=== PATIENT | male | born 1970 | race Caucasian/White ===

== ENCOUNTER 2016-09-16 00:52 | Emergency (ER) | payer MEDICARE, OTHER ==
[2016-09-16] MEDS ORDERED: LORazepam 2 MG/ML SYRINGE IV STA (00:58)
[2016-09-16] MEDS ORDERED: LORazepam 2 MG/ML SYRINGE IM STA (01:02)
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
[2016-09-16] MEDS ORDERED: NITROPRUSSIDE 100 MG in DEXTROSE 5% IN WATER 250 ML IV ONE ×2 (01:38)
[2016-09-16 01:42] LABS: Anisocytosis Slight; Basophils % (A) 0 %; CH 28.8; CHCM 31.1; Eosinophils # (A) 0.2 k/uL (0-0.7); Eosinophils % (A) 2 %; HCT 35.5 % (39.0-53.0); HDW 2.96; Hypochromasia Slight; Luc # (Auto) 0.09; Luc % (Auto) 1; Lymphocytes % (A) 21 %; MCH 28.2 pg (25.0-35.0); MCHC 30.3 g/dL (31.0-37.0); MCV 93.1 fL (80.0-100.0); Mean Platelet Volume 7.8; Monocytes # (A) 0.3 k/uL (0-1.0); Monocytes % (A) 3 %; Neutrophils # (A) 6.9 k/uL (1.3-7.7); Neutrophils % (A) 73 %; RBC 3.82 m/uL (4.30-5.90); RDW 16.3 % (11.5-15.5); WBC 9.4 k/uL (3.8-10.6); WBC (Perox) 9.48
[2016-09-16 01:54] LABS: ALT 41 U/L (21-72); AST 26 U/L (17-59); Acetaminophen <10.0 ug/mL; Alkaline Phosphatase 81 U/L (38-126); Anion Gap 15 mmol/L; Blood Urea Nitrogen 63 mg/dL (9-20); Calcium 7.5 mg/dL (8.4-10.2); Carbon Dioxide 13 mmol/L (22-30); Chloride 113 mmol/L (98-107); Glucose 114 mg/dL (74-99); Salicylate <1.0 mg/dL; Sodium 141 mmol/L (137-145); Total Bilirubin 0.3 mg/dL (0.2-1.3); Total Protein 5.9 g/dL (6.3-8.2)
[2016-09-16 01:58] LABS: Non-African American GFR(MDRD) 10 (>60 ml/min/1.73 sqM)
[2016-09-16 02:00] LABS: Potassium 6.5 mmol/L (3.5-5.1)
[2016-09-16 02:06] VITALS: RESP 16
[2016-09-16 02:08] LABS: HGB 10.8 gm/dL (13.0-17.5)
[2016-09-16] MEDS ORDERED: CALCIUM GLUCONATE 1,000 MG in SODIUM CHLORIDE 0.9% 100 ML IVPB ONE (02:09)
[2016-09-16] MEDS ORDERED: IPRATROPIUM-ALBUTEROL 3 ML NEB INHALATION STA (02:09)
[2016-09-16] MEDS ORDERED: SODIUM POLYSTYRENE SULFONATE 15 GM/60 ML BOTTLE PO STA (02:10)
[2016-09-16] MEDS ORDERED: SODIUM CHLORIDE 0.9% 1,000 ML IV SCH (02:15)
--- NOTE | 2016-09-16 02:31 | XR ---
EXAMINATION TYPE: XR chest 1V DATE OF EXAM: 09/16/2016 2:19 AM COMPARISON: 08/01/2016 HISTORY: Chest pain seizures TECHNIQUE: Single frontal view of the chest is obtained. FINDINGS: There is mild pulmonary congestion. There is blunting of costophrenic angles. There are ch est leads. There is a left central venous catheter with tip in the right atrium. There is a right-dario ed central venous catheter with tip in the superior vena cava. IMPRESSION: Bilateral pleural effusions and probable mild heart failure. There is significant decrea se in congestion and pleural fluid compared to old exam.
--- NOTE | 2016-09-16 02:32 | CT ---
EXAMINATION TYPE: CT brain wo con DATE OF EXAM: 09/16/2016 2:27 AM COMPARISON: 04/11/2016 HISTORY: seizure CT DLP: 1064.30 mGycm Automated exposure control for dose reduction was used. FINDINGS: There is hypodensity in the periventricular white matter. There is no mass effect nor midline shift. There is no sign of intracranial hemorrhage. The calvarium is intact. IMPRESSION: There is diffuse white matter hypodensity similar to old exam. No acute intracranial abnormality. No hemorrhage.
[2016-09-16 03:11] LABS: ABG HCO3 16 mmol/L (21-25); ABG PCO2 40 mmHg (35-45); ABG PH 7.24 (7.35-7.45); ABG PO2 116 mmHg (83-108); ABG TCO2 18 mmol/L (19-24)
[2016-09-16 03:12] LABS: ABG Base Excess -9.8 mmol/L
[2016-09-16 03:35] LABS: Amorphous Sediment,Urine Occasional /hpf; Appearance,Urine Clear (Clear); Bilirubin,Urine Negative (Negative); Glucose,Urine (UA) 2+ (Negative); Ketones,Urine Trace (Negative); Leukocyte Esterase,Urine Negative (Negative); Mucus,Urine Rare /hpf; Nitrite,Urine Negative (Negative); PH, Urine 6.5 (5.0-8.0); Particle Count 7057; Protein,Urine 3+ (Negative); RBC,Urine 10 /hpf (0-5); Specific Gravity,Urine 1.009 (1.001-1.035); Squamous Epithelial Cell,Urine <1 /hpf (0-4); UA Billing (MACRO vs. MICRO) MICRO; Urobilinogen,Urine <2.0 mg/dL (<2.0); WBC,Urine 1 /hpf (0-5)
[2016-09-16 04:30] VITALS: BP 170/101; PULSE 96; TEMP 97.1
== END 2016-09-16 05:00 | disposition other institution (70) ==
LOC: EC 00:52 → SUPCPDRO 00:52 → EC 05:00
DX: G40.909 Epilepsy, unspecified, not intractable, without status epilepticus (principal); S09.90XA Unspecified injury of head, initial encounter; E87.2 Acidosis; E87.5 Hyperkalemia; I50.9 Heart failure, unspecified; E11.9 Type 2 diabetes mellitus without complications; I16.9 Hypertensive crisis, unspecified; I12.0 Hypertensive chronic kidney disease with stage 5 chronic kidney disease or end stage renal disease; N18.6 End stage renal disease; W06.XXXA Fall from bed, initial encounter; Y92.003 Bedroom of unspecified non-institutional (private) residence as the place of occurrence of the external cause; G47.30 Sleep apnea, unspecified; Z99.2 Dependence on renal dialysis; M19.90 Unspecified osteoarthritis, unspecified site; Z86.14 Personal history of Methicillin resistant Staphylococcus aureus infection; K21.9 Gastro-esophageal reflux disease without esophagitis; Z79.4 Long term (current) use of insulin; Z79.899 Other long term (current) drug therapy; Z88.5 Allergy status to narcotic agent
CPT/HCPCS: 96372; 96365; 96366; 96368; 99291; 36415; 94640; 36600; 93005; 80053; 82805; 85025; 81001; 87040; 80306; 83520 ×2; 87086; 71010; 70450; J2060; J0610

== ENCOUNTER 2016-10-14 05:11 | Inpatient (IN) | payer MEDICARE, OTHER ==
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
[2016-10-14 06:13] LABS: Anisocytosis Slight; Basophils % (A) 0 %; CH 29.2; CHCM 28.2; Eosinophils # (A) 0.1 k/uL (0-0.7); Eosinophils % (A) 2 %; HCT 29.1 % (39.0-53.0); HDW 3.37; Hypochromasia Marked; Luc # (Auto) 0.09; Luc % (Auto) 2; Lymphocytes # (A) 0.8 k/uL (1.0-4.8); Lymphocytes % (A) 13 %; MCH 30.3 pg (25.0-35.0); Macrocytosis Marked; Mean Platelet Volume 8.3; Monocytes # (A) 0.3 k/uL (0-1.0); Monocytes % (A) 5 %; Neutrophils # (A) 5.1 k/uL (1.3-7.7); Neutrophils % (A) 80 %; RBC 2.78 m/uL (4.30-5.90); RDW 18.8 % (11.5-15.5); WBC 6.4 k/uL (3.8-10.6); WBC (Perox) 6.86
[2016-10-14 06:22] LABS: Calcium 6.8 mg/dL (8.4-10.2); Total Bilirubin 0.5 mg/dL (0.2-1.3)
[2016-10-14 06:23] LABS: HGB 8.4 gm/dL (13.0-17.5); MCV 104.5 fL (80.0-100.0)
[2016-10-14 06:31] LABS: Potassium 9.4 mmol/L (3.5-5.1)
[2016-10-14] MEDS ORDERED: INSULIN REGULAR 100 UNIT/ML VIAL IV STA (06:32)
[2016-10-14] MEDS ORDERED: ALBUTEROL NEBULIZED 2.5 MG/3 ML INHALATION STA (06:32)
[2016-10-14] MEDS ORDERED: SODIUM BICARB 8.4% 50 ML SYR (1 MEQ/ML) IV STA ×3 (06:32→14:06)
[2016-10-14] MEDS ORDERED: CALCIUM GLUCONATE 1,000 MG in SODIUM CHLORIDE 0.9% 100 ML IVPB ONE (06:32)
--- NOTE | 2016-10-14 06:40 | XR ---
EXAMINATION TYPE: XR KUB DATE OF EXAM: 10/14/2016 6:21 AM COMPARISON: 03/05/2016 HISTORY: Abdominal pain TECHNIQUE: 3 views FINDINGS: There is increased density over the abdomen suggestive of ascites. There is no evidence of pneumoperitoneum. I see no sign of a bowel obstruction. There is blunting of right costophrenic angle . IMPRESSION: There is evidence of new right pleural effusion compared to old exam. There is probably a scites. No free air.
[2016-10-14] MEDS ORDERED: NALOXONE 0.4 MG/ML 1 ML VIAL IV PRN (06:41)
--- NOTE | 2016-10-14 06:42 | XR ---
EXAMINATION TYPE: XR chest 1V portable DATE OF EXAM: 10/14/2016 6:21 AM COMPARISON: 09/16/2016 HISTORY: Short of breath TECHNIQUE: Single frontal view of the chest is obtained. FINDINGS: There is probably pulmonary vascular congestion. There is blunting of costophrenic angles and more on the right side. There is left side central venous catheter with the tip in the right atri um. There are chest leads. IMPRESSION: There is increasing bilateral pleural effusions and mild pulmonary vascular congestion c ompared to last exam. Heart failure cannot be excluded. Bilateral lower lobe pneumonia cannot be exc luded.
[2016-10-14] MEDS: DEXTROSE 50%-WATER 50 ML SYRINGE IVP STA ×2 (06:44→16:38)
[2016-10-14 06:47] LABS: Manual Review Performed; Toxic Granulation Present
[2016-10-14 10:17] LABS: Glucose,Whole Blood 122 mg/dL (75-99)
[2016-10-14] MEDS ORDERED: HYDROmorphone 1 MG/ML 1 ML SYRINGE IVP STA (11:03)
--- NOTE | 2016-10-14 11:34 | XR ---
EXAMINATION TYPE: XR chest 1V portable DATE OF EXAM: 10/14/2016 11:25 AM COMPARISON: 10/14/2016 HISTORY: Shortness of breath TECHNIQUE: Single frontal view of the chest is obtained. FINDINGS: Bilateral pleural effusions and consolidation with cardiomegaly appearing stable. Dialysis catheter seen with the tip overlying the right atrium. Mediport PICC line noted. No pneumothorax. IMPRESSION: 1. Bilateral consolidation and pleural effusion, correlate for CHF.
[2016-10-14] MEDS ORDERED: ETOMIDATE 2 MG/ML 10 ML VIAL IVP STA (11:37)
[2016-10-14] MEDS ORDERED: MIDAZOLAM (PF) 1 MG/ML 5 ML VIAL IV STA (11:39)
[2016-10-14 11:50] LABS: ABG HCO3 19 mmol/L (21-25); ABG PCO2 43 mmHg (35-45); ABG PH 7.26 (7.35-7.45); ABG PO2 32 mmHg (83-108); ABG TCO2 20 mmol/L (19-24)
[2016-10-14] MEDS: EMPTY BAG 1 BAG with PROPOFOL 500 MG IV SCH ×4 (11:56→22:16)
--- NOTE | 2016-10-14 12:05 | XR ---
EXAMINATION TYPE: XR chest 1V portable DATE OF EXAM: 10/14/2016 11:54 AM Comparison: Earlier today Clinical History: 46-year-old male Tube placement Findings: Left-sided double lumen hemodialysis catheter is present with tips probably in the upper right atrium . There is marked leftward patient rotation altering the normal cardiac mediastinal contours. Right h eart margin obscured by increasing opacity throughout the right lung. Right anterior chest wall subcl marlena injection port with catheter tip near the upper to mid SVC level. Continued hazy density at the left base with a interstitial densities throughout the left lung. ET tube is in place, satisfactory. Impression: 1. Satisfactory positioning of ET tube. 2. Rotated exam. Findings suggest worsening of right greater and left pleural effusions and possible underlying interstitial edema.
[2016-10-14] MEDS ORDERED: HEPARIN SODIUM,PORCINE 5,000 UNIT/ML 1 ML VIAL ONE (12:15)
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
[2016-10-14 14:08] LABS: ABG Base Excess -8.4 mmol/L; ABG HCO3 18 mmol/L (21-25); ABG PCO2 49 mmHg (35-45); ABG PO2 77 mmHg (83-108); ABG TCO2 20 mmol/L (19-24)
[2016-10-14 14:09] LABS: ABG Oxygen Saturation 91.6 % (94-97)
[2016-10-14 15:36] LABS: Glucose,Whole Blood 60 mg/dL (75-99)
[2016-10-14 16:09] LABS: Glucose,Whole Blood 147 mg/dL (75-99)
[2016-10-14 16:28] LABS: Calcium 6.9 mg/dL (8.4-10.2); Potassium 5.6 mmol/L (3.5-5.1); Total Bilirubin 0.5 mg/dL (0.2-1.3); Total Protein 5.5 g/dL (6.3-8.2)
[2016-10-14] MEDS: HEPARIN SODIUM,PORCINE 5,000 UNIT/ML 1 ML VIAL SQ SCH (16:39)
[2016-10-14 16:43] LABS: Glucose,Whole Blood 87 mg/dL (75-99)
[2016-10-14 17:27] LABS: Glucose,Whole Blood 98 mg/dL (75-99)
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
[2016-10-14 18:59] LABS: Amorphous Sediment,Urine Few /hpf; Appearance,Urine Cloudy (Clear); Bilirubin,Urine Negative (Negative); Glucose,Urine (UA) Negative (Negative); Ketones,Urine Negative (Negative); Leukocyte Esterase,Urine Moderate (Negative); Mucus,Urine Rare /hpf; Nitrite,Urine Negative (Negative); PH, Urine 5.5 (5.0-8.0); Particle Count 34659; Protein,Urine 3+ (Negative); RBC,Urine 5 /hpf (0-5); Specific Gravity,Urine 1.013 (1.001-1.035); UA Billing (MACRO vs. MICRO) MICRO; Urobilinogen,Urine <2.0 mg/dL (<2.0); WBC,Urine 29 /hpf (0-5)
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
[2016-10-14] MEDS ORDERED: DARBEPOETIN ALFA 40 MCG/0.4 ML SYRINGE SQ SCH (21:00)
[2016-10-14 22:11] LABS: Glucose,Whole Blood 56 mg/dL (75-99)
[2016-10-14 22:13] LABS: Glucose,Whole Blood 95 mg/dL (75-99)
[2016-10-14] MEDS: PANTOPRAZOLE 40 MG/10 ML VIAL IVP SCH (22:15)
[2016-10-14 23:28] LABS: Glucose,Whole Blood 76 mg/dL (75-99)
[2016-10-15 02:43] LABS: Glucose,Whole Blood 66 mg/dL (75-99)
[2016-10-15] MEDS: EMPTY BAG 1 BAG with PROPOFOL 500 MG IV SCH ×3 (02:52→08:02)
[2016-10-15 03:08] LABS: Glucose,Whole Blood 106 mg/dL (75-99)
[2016-10-15 04:45] LABS: Anisocytosis Slight; CHCM 30.7; HDW 3.33; Hypochromasia Marked; MCH 30.3 pg (25.0-35.0); MCHC 30.8 g/dL (31.0-37.0); Macrocytosis Slight; Mean Platelet Volume 9.9; RBC 2.03 m/uL (4.30-5.90); RDW 18.4 % (11.5-15.5); WBC 3.5 k/uL (3.8-10.6)
[2016-10-15 04:50] LABS: HGB 6.2 gm/dL (13.0-17.5)
[2016-10-15 04:51] LABS: MCV 98.4 fL (80.0-100.0)
[2016-10-15 05:00] LABS: Calcium 6.6 mg/dL (8.4-10.2); Magnesium 2.2 mg/dL (1.6-2.3); Phosphorous 7.5 mg/dL (2.5-4.5); Potassium 5.8 mmol/L (3.5-5.1)
[2016-10-15 05:29] LABS: Glucose,Whole Blood 79 mg/dL (75-99)
--- NOTE | 2016-10-15 07:08 | XR ---
EXAMINATION TYPE: XR chest 1V portable DATE OF EXAM: 10/15/2016 6:42 AM CLINICAL HISTORY: Difficulty breathing progress study. Orogastric tube placement. TECHNIQUE: Single AP portable upright view of the chest is obtained. COMPARISON: Chest x-ray from one day earlier FINDINGS: There is new orogastric tube projecting below diaphragm. An endotracheal tube, right subcl marlena Mediport catheter, and large bore left internal jugular central venous catheter are all stable in appearance. There are small bilateral pleural effusions with central vascular congestion and patchy bibasilar ate lectasis and/or infiltrate all redemonstrated, findings are improved from prior. Cardiac silhouette s ize is within normal limits. Osseous structures are intact. IMPRESSION: 1. New orogastric tube is satisfactory in position. 2. There is interval improvement in bilateral pleural effusions, central vascular congestion, and dif fuse bilateral edema and/or infiltrates. There is persistent small bilateral pleural effusions with m ild central vascular congestion and bilateral lower lung edema and/or infiltrates all still present b ut improved.
[2016-10-15] MEDS: DEXTROSE 5% IN WATER 1,000 ML IV SCH (08:03)
[2016-10-15] MEDS: HEPARIN SODIUM,PORCINE 5,000 UNIT/ML 1 ML VIAL SQ SCH ×4 (08:04→16:23)
[2016-10-15] MEDS: PANTOPRAZOLE 40 MG/10 ML VIAL IVP SCH ×2 (08:04→20:31)
[2016-10-15] MEDS ORDERED: SODIUM POLYSTYRENE SULFONATE 15 GM/60 ML BOTTLE PO STA (08:55)
[2016-10-15 09:04] LABS: ABG Base Excess -7.4 mmol/L; ABG HCO3 18 mmol/L (21-25); ABG Oxygen Saturation 99.5 % (94-97); ABG PCO2 40 mmHg (35-45); ABG PH 7.28 (7.35-7.45); ABG PO2 181 mmHg (83-108); ABG TCO2 19 mmol/L (19-24)
[2016-10-15] MEDS ORDERED: HEPARIN SODIUM,PORCINE 5,000 UNIT/ML 1 ML VIAL ONE (10:20)
[2016-10-15] MEDS: HYDROmorphone 1 MG/ML 1 ML SYRINGE IVP PRN ×6 (11:42→22:46)
[2016-10-15 11:44] LABS: Glucose,Whole Blood 75 mg/dL (75-99)
--- NOTE | 2016-10-15 12:17 | P.PN ---
Subjective Patient is seen in follow-up for end-stage renal disease. He is maintained on hemodialysis on a Wednesday schedule via a permacath. However the patient has been extremely noncompliant and missed over a month of dialysis as an outpatient. He presented with hyperkalemia and a cardiac arrest. He underwent urgent hemodialysis yesterday morning. Potassium this morning is 5.8. He was extubated this morning. Currently awake and alert. Denies chest pain or shortness of breath. Vital signs are stable. General: The patient appeared well nourished and normally developed. HEENT: Head exam is unremarkable. Neck is without jugular venous distension. LUNGS: Lungs are clear to auscultation and percussion. Breath sounds decreased. HEART: Rate and Rhythm are regular. First and second heart sounds normal. No murmurs, rubs or gallops. ABDOMEN: Abdominal exam reveals normal bowel sounds. Non-tender and non- distended. No evidence of peritonitis. EXTREMITITES: 1+ edema. Objective - Vital Signs Vital signs: Vital Signs Temp 97.6 F 10/15/16 11:31 Pulse 80 10/15/16 11:31 Resp 10 L 10/15/16 11:31 BP 187/74 10/15/16 11:31 Pulse Ox 96 10/15/16 11:31 Intake & Output 10/14/16 10/15/16 10/15/16 18:59 06:59 18:59 Intake Total 80.038 403.956 120.57 Output Total 20 281 185 Balance 60.038 122.956 -64.43 Weight 72.575 kg 76.3 kg Intake: IV 220 100 0.9 100 D5W 120 100 Intake, IV Titration 80.038 183.956 20.57 Amount Empty Bag 1 bag @ 10 MCG/ 80.038 183.956 20.57 KG/MIN 4.35 mls/hr IV . [id number] THOM with Propofol 500 mg Rx#:[id number] Blood Product 0 Rc Pheresis 2 As3 Unit 0 [id number] Output: Urine 20 281 185 Other: Voiding Method Indwelling Catheter Indwelling Catheter ABP, PAP, CO, CI - Last Documented Arterial Blood Pressure 123/55 - Labs CBC & Chem 7: 10/15/16 04:15 10/15/16 04:15 Labs: Abnormal Lab Results - Last 24 Hours (Table) 10/14/16 10/14/16 10/14/16 Range/Units 13:35 15:34 16:00 WBC (3.8-10.6) k/uL RBC (4.30-5.90) m/uL Hgb (13.0-17.5) gm/dL Hct (39.0-53.0) % MCHC (31.0-37.0) g/dL RDW (11.5-15.5) % Plt Count (150-450) k/uL ABG pH 7.20 L* (7.35-7.45) ABG pCO2 49 H (35-45) mmHg ABG pO2 77 L (83-108) mmHg ABG HCO3 18 L (21-25) mmol/L ABG O2 Saturation 91.6 L (94-97) % Potassium 5.6 H (3.5-5.1) mmol/L Chloride (98-107) mmol/L Carbon Dioxide 19 L (22-30) mmol/L BUN 65 H (9-20) mg/dL Creatinine 6.72 H* (0.66-1.25) mg/dL Glucose 107 H (74-99) mg/dL POC Glucose (mg/dL) 60 L (75-99) mg/dL Calcium 6.9 L (8.4-10.2) mg/dL Phosphorus (2.5-4.5) mg/dL Alkaline Phosphatase 153 H (38-126) U/L Total Protein 5.5 L (6.3-8.2) g/dL Albumin 2.7 L (3.5-5.0) g/dL Urine Protein (Negative) Urine Blood (Negative) Ur Leukocyte Esterase (Negative) Urine WBC (0-5) /hpf Urine WBC Clumps (None) /hpf Amorphous Sediment (None) /hpf Hyaline Casts (0-2) /lpf Urine Mucus (None) /hpf Crossmatch 10/14/16 10/14/16 10/14/16 Range/Units 16:07 18:35 21:52 WBC (3.8-10.6) k/uL RBC (4.30-5.90) m/uL Hgb (13.0-17.5) gm/dL Hct (39.0-53.0) % MCHC (31.0-37.0) g/dL RDW (11.5-15.5) % Plt Count (150-450) k/uL ABG pH (7.35-7.45) ABG pCO2 (35-45) mmHg ABG pO2 (83-108) mmHg ABG HCO3 (21-25) mmol/L ABG O2 Saturation (94-97) % Potassium (3.5-5.1) mmol/L Chloride (98-107) mmol/L Carbon Dioxide (22-30) mmol/L BUN (9-20) mg/dL Creatinine (0.66-1.25) mg/dL Glucose (74-99) mg/dL POC Glucose (mg/dL) 147 H 56 L (75-99) mg/dL Calcium (8.4-10.2) mg/dL Phosphorus (2.5-4.5) mg/dL Alkaline Phosphatase (38-126) U/L Total Protein (6.3-8.2) g/dL Albumin (3.5-5.0) g/dL Urine Protein 3+ H (Negative) Urine Blood Small H (Negative) Ur Leukocyte Esterase Moderate H (Negative) Urine WBC 29 H (0-5) /hpf Urine WBC Clumps Few H (None) /hpf Amorphous Sediment Few H (None) /hpf Hyaline Casts 43 H (0-2) /lpf Urine Mucus Rare H (None) /hpf Crossmatch 10/15/16 10/15/16 10/15/16 Range/Units 02:41 03:06 04:15 WBC 3.5 L (3.8-10.6) k/uL RBC 2.03 L (4.30-5.90) m/uL Hgb 6.2 L* D (13.0-17.5) gm/dL Hct 20.0 L* (39.0-53.0) % MCHC 30.8 L (31.0-37.0) g/dL RDW 18.4 H (11.5-15.5) % Plt Count 93 L (150-450) k/uL ABG pH (7.35-7.45) ABG pCO2 (35-45) mmHg ABG pO2 (83-108) mmHg ABG HCO3 (21-25) mmol/L ABG O2 Saturation (94-97) % Potassium (3.5-5.1) mmol/L Chloride (98-107) mmol/L Carbon Dioxide (22-30) mmol/L BUN (9-20) mg/dL Creatinine (0.66-1.25) mg/dL Glucose (74-99) mg/dL POC Glucose (mg/dL) 66 L 106 H (75-99) mg/dL Calcium (8.4-10.2) mg/dL Phosphorus (2.5-4.5) mg/dL Alkaline Phosphatase (38-126) U/L Total Protein (6.3-8.2) g/dL Albumin (3.5-5.0) g/dL Urine Protein (Negative) Urine Blood (Negative) Ur Leukocyte Esterase (Negative) Urine WBC (0-5) /hpf Urine WBC Clumps (None) /hpf Amorphous Sediment (None) /hpf Hyaline Casts (0-2) /lpf Urine Mucus (None) /hpf Crossmatch 10/15/16 10/15/16 10/15/16 Range/Units 04:15 06:45 07:58 WBC (3.8-10.6) k/uL RBC (4.30-5.90) m/uL Hgb (13.0-17.5) gm/dL Hct (39.0-53.0) % MCHC (31.0-37.0) g/dL RDW (11.5-15.5) % Plt Count (150-450) k/uL ABG pH 7.28 L (7.35-7.45) ABG pCO2 (35-45) mmHg ABG pO2 181 H (83-108) mmHg ABG HCO3 18 L (21-25) mmol/L ABG O2 Saturation 99.5 H (94-97) % Potassium 5.8 H (3.5-5.1) mmol/L Chloride 108 H (98-107) mmol/L Carbon Dioxide 19 L (22-30) mmol/L BUN 66 H (9-20) mg/dL Creatinine 7.20 H* (0.66-1.25) mg/dL Glucose (74-99) mg/dL POC Glucose (mg/dL) (75-99) mg/dL Calcium 6.6 L (8.4-10.2) mg/dL Phosphorus 7.5 H (2.5-4.5) mg/dL Alkaline Phosphatase (38-126) U/L Total Protein (6.3-8.2) g/dL Albumin (3.5-5.0) g/dL Urine Protein (Negative) Urine Blood (Negative) Ur Leukocyte Esterase (Negative) Urine WBC (0-5) /hpf Urine WBC Clumps (None) /hpf Amorphous Sediment (None) /hpf Hyaline Casts (0-2) /lpf Urine Mucus (None) /hpf Crossmatch See Detail Microbiology - Last 24 Hours (Table) 10/14/16 12:18 Gram Stain - Preliminary Sputum Sputum Culture - Preliminary 10/14/16 18:35 Urine Culture - Preliminary Urine,Catheterized Assessment and Plan Plan: Assessment: #1. End-stage renal disease maintained on hemodialysis on a Wednesday schedule via a permacath. Patient has been extremely noncompliant with hemodialysis as an outpatient and has missed over a month of treatment. #2. Hyperkalemia secondary to noncompliance with hemodialysis. #3. Acute anemia. Hemoglobin 6.2 this morning. #4. Metabolic acidosis secondary to chronic kidney disease. #5. Insulin-dependent diabetes mellitus. #6. Chronic kidney disease mineral bone disease. Plan: Hemodialysis today with goal 3 L ultrafiltration. Will repeat another treatment tomorrow per his outpatient schedule. Patient currently receiving 2 units of packed red blood cell transfusion. Maintain Aranesp. I had a detailed discussion with the patient and his mother was present at bedside regarding the importance of being compliant with hemodialysis.
--- NOTE | 2016-10-15 13:31 | P.PN ---
Subjective Principal diagnosis: Acute hypoxic respiratory failure secondary to pulmonary edema to chronic renal failure. This is a 46-year-old white male with history of multiple medical problems including chronic renal failure, patient is on hemodialysis. Patient presented to the ER with multiple complaints including shortness of breath, intractable nausea and vomiting, and according to the ER physician the patient was unable to keep down his pain medication. Patient has chronic abdominal pain, and takes significant amount of narcotics to control the pain. Is also known to have history of severe gastroparesis. His last dialysis was last Wednesday done at [facility], but shortly after he arrived to the ER, patient apparently deteriorated, and his pulmonary status became much worse. Patient was intubated, and he was also dialyzed in the ER. His dialysis was done on emergency basis, his potassium upon presentation was 9.4. His BUN was 120 and his creatinine was 11.47. At any rate patient was placed on mechanical ventilation, he was intubated by the ER physician, shortly after, I saw the patient in the ER, I adjusted his ventilator settings, and he is now on 100% FiO2, tidal volume of 550, PEEP of 8, and the rate of 14. He is on assist control mode of mechanical ventilation. Chest x-ray was reviewed and clearly shows evidence of pulmonary edema. This is in spite of dialysis and ultrafiltration. ABG prior to intubation showed a pO2 of 32, pCO2 of 43 and pH of 7.26. Liver enzymes were also slightly elevated, and ammonia level was 36. Blood sugar was 173. Upon my evaluation, the patient was actually sedated, and propofol drip. Not much history could be obtained from the patient himself. Patient was reevaluated today on 10/15/2016, he remains on mechanical ventilation , continues to have slight hyperkalemia which will be addressed by giving him Kayexalate, I'm not certain whether the patient is going to be dialyzed today, chest x-ray today showed significant improvement. Patient is anemic and he will likely require at least a unit of packed RBCs possibly 2 units. Discussed his condition with the family at bedside, and the is inclined to consider comfort care measures, however she is not his legal guardian. Apparently he has a guardian appointed by Court. And he would be approached eventually regarding the CODE STATUS. In the meantime the patient seems to be doing well since he had his dialysis yesterday, and based on his labs and his overall critical status, I would likely wean and extubate the patient today. Indeed the patient was given a short the pressure support and CPAP trial, and he did quite well. Hence I decided to extubate the patient. And the CODE STATUS would have to be discussed later with the patient and possibly with his legal guardian. ABG today showed a pO2 of 181 pCO2 of 40 pH of 7.28 potassium was 5.8 today hemoglobin 6.2 and he is yet to receive at least a unit of packed RBCs. However the need a consent by the legal guardian. Objective - Vital Signs Vital signs: Vital Signs Temp 97.7 F 10/15/16 13:17 Pulse 80 10/15/16 13:17 Resp 13 10/15/16 13:17 BP 178/94 10/15/16 13:17 Pulse Ox 94 L 10/15/16 13:17 Intake & Output 10/14/16 10/15/16 10/15/16 18:59 06:59 18:59 Intake Total 80.038 403.956 780.57 Output Total 20 281 385 Balance 60.038 122.956 395.57 Weight 72.575 kg 76.3 kg Intake: IV 220 140 0.9 100 D5W 120 140 Intake, IV Titration 80.038 183.956 20.57 Amount Empty Bag 1 bag @ 10 MCG/ 80.038 183.956 20.57 KG/MIN 4.35 mls/hr IV . [id number] THOM with Propofol 500 mg Rx#:[id number] Blood Product 620 Rc As-1 Unit 0 [id number] Rc Pheresis 2 As3 Unit 310 [id number] Output: Urine 20 281 385 Other: Voiding Method Indwelling Catheter Indwelling Catheter ABP, PAP, CO, CI - Last Documented Arterial Blood Pressure 123/55 - Exam Physical Exam: Revealed a 46-year-old white male on mechanical ventilation, endotracheal tube seems to be intact. HEENT:[Neck is supple.] [No neck masses.] [No thyromegaly.] [No JVD.] Endotracheal tube is intact. Chest: Crackles and rhonchi noted bilaterally] Cardiac Exam: [Normal S1 and S2, no S3 gallop, 2/6 systolic murmur. Throughout the precordium] Abdomen: [Edematous abdominal wall was noted, nontender, no megaly, no rebound , no guarding, normal bowel sounds.] Extremities: [No clubbing, 3+ bipedal edema, no cyanosis.] Neurological Exam: No focal deficit was noted when the patient was off sedation. - Labs CBC & Chem 7: 10/15/16 04:15 10/15/16 04:15 Labs: Abnormal Lab Results - Last 24 Hours (Table) 10/14/16 10/14/16 10/14/16 Range/Units 13:35 15:34 16:00 WBC (3.8-10.6) k/uL RBC (4.30-5.90) m/uL Hgb (13.0-17.5) gm/dL Hct (39.0-53.0) % MCHC (31.0-37.0) g/dL RDW (11.5-15.5) % Plt Count (150-450) k/uL ABG pH 7.20 L* (7.35-7.45) ABG pCO2 49 H (35-45) mmHg ABG pO2 77 L (83-108) mmHg ABG HCO3 18 L (21-25) mmol/L ABG O2 Saturation 91.6 L (94-97) % Potassium 5.6 H (3.5-5.1) mmol/L Chloride (98-107) mmol/L Carbon Dioxide 19 L (22-30) mmol/L BUN 65 H (9-20) mg/dL Creatinine 6.72 H* (0.66-1.25) mg/dL Glucose 107 H (74-99) mg/dL POC Glucose (mg/dL) 60 L (75-99) mg/dL Calcium 6.9 L (8.4-10.2) mg/dL Phosphorus (2.5-4.5) mg/dL Alkaline Phosphatase 153 H (38-126) U/L Total Protein 5.5 L (6.3-8.2) g/dL Albumin 2.7 L (3.5-5.0) g/dL Urine Protein (Negative) Urine Blood (Negative) Ur Leukocyte Esterase (Negative) Urine WBC (0-5) /hpf Urine WBC Clumps (None) /hpf Amorphous Sediment (None) /hpf Hyaline Casts (0-2) /lpf Urine Mucus (None) /hpf Crossmatch 10/14/16 10/14/16 10/14/16 Range/Units 16:07 18:35 21:52 WBC (3.8-10.6) k/uL RBC (4.30-5.90) m/uL Hgb (13.0-17.5) gm/dL Hct (39.0-53.0) % MCHC (31.0-37.0) g/dL RDW (11.5-15.5) % Plt Count (150-450) k/uL ABG pH (7.35-7.45) ABG pCO2 (35-45) mmHg ABG pO2 (83-108) mmHg ABG HCO3 (21-25) mmol/L ABG O2 Saturation (94-97) % Potassium (3.5-5.1) mmol/L Chloride (98-107) mmol/L Carbon Dioxide (22-30) mmol/L BUN (9-20) mg/dL Creatinine (0.66-1.25) mg/dL Glucose (74-99) mg/dL POC Glucose (mg/dL) 147 H 56 L (75-99) mg/dL Calcium (8.4-10.2) mg/dL Phosphorus (2.5-4.5) mg/dL Alkaline Phosphatase (38-126) U/L Total Protein (6.3-8.2) g/dL Albumin (3.5-5.0) g/dL Urine Protein 3+ H (Negative) Urine Blood Small H (Negative) Ur Leukocyte Esterase Moderate H (Negative) Urine WBC 29 H (0-5) /hpf Urine WBC Clumps Few H (None) /hpf Amorphous Sediment Few H (None) /hpf Hyaline Casts 43 H (0-2) /lpf Urine Mucus Rare H (None) /hpf Crossmatch 10/15/16 10/15/16 10/15/16 Range/Units 02:41 03:06 04:15 WBC 3.5 L (3.8-10.6) k/uL RBC 2.03 L (4.30-5.90) m/uL Hgb 6.2 L* D (13.0-17.5) gm/dL Hct 20.0 L* (39.0-53.0) % MCHC 30.8 L (31.0-37.0) g/dL RDW 18.4 H (11.5-15.5) % Plt Count 93 L (150-450) k/uL ABG pH (7.35-7.45) ABG pCO2 (35-45) mmHg ABG pO2 (83-108) mmHg ABG HCO3 (21-25) mmol/L ABG O2 Saturation (94-97) % Potassium (3.5-5.1) mmol/L Chloride (98-107) mmol/L Carbon Dioxide (22-30) mmol/L BUN (9-20) mg/dL Creatinine (0.66-1.25) mg/dL Glucose (74-99) mg/dL POC Glucose (mg/dL) 66 L 106 H (75-99) mg/dL Calcium (8.4-10.2) mg/dL Phosphorus (2.5-4.5) mg/dL Alkaline Phosphatase (38-126) U/L Total Protein (6.3-8.2) g/dL Albumin (3.5-5.0) g/dL Urine Protein (Negative) Urine Blood (Negative) Ur Leukocyte Esterase (Negative) Urine WBC (0-5) /hpf Urine WBC Clumps (None) /hpf Amorphous Sediment (None) /hpf Hyaline Casts (0-2) /lpf Urine Mucus (None) /hpf Crossmatch 10/15/16 10/15/16 10/15/16 Range/Units 04:15 06:45 07:58 WBC (3.8-10.6) k/uL RBC (4.30-5.90) m/uL Hgb (13.0-17.5) gm/dL Hct (39.0-53.0) % MCHC (31.0-37.0) g/dL RDW (11.5-15.5) % Plt Count (150-450) k/uL ABG pH 7.28 L (7.35-7.45) ABG pCO2 (35-45) mmHg ABG pO2 181 H (83-108) mmHg ABG HCO3 18 L (21-25) mmol/L ABG O2 Saturation 99.5 H (94-97) % Potassium 5.8 H (3.5-5.1) mmol/L Chloride 108 H (98-107) mmol/L Carbon Dioxide 19 L (22-30) mmol/L BUN 66 H (9-20) mg/dL Creatinine 7.20 H* (0.66-1.25) mg/dL Glucose (74-99) mg/dL POC Glucose (mg/dL) (75-99) mg/dL Calcium 6.6 L (8.4-10.2) mg/dL Phosphorus 7.5 H (2.5-4.5) mg/dL Alkaline Phosphatase (38-126) U/L Total Protein (6.3-8.2) g/dL Albumin (3.5-5.0) g/dL Urine Protein (Negative) Urine Blood (Negative) Ur Leukocyte Esterase (Negative) Urine WBC (0-5) /hpf Urine WBC Clumps (None) /hpf Amorphous Sediment (None) /hpf Hyaline Casts (0-2) /lpf Urine Mucus (None) /hpf Crossmatch See Detail Microbiology - Last 24 Hours (Table) 10/14/16 12:18 Gram Stain - Preliminary Sputum Sputum Culture - Preliminary 10/14/16 18:35 Urine Culture - Preliminary Urine,Catheterized Assessment and Plan Plan: Impression: 1 Acute hypoxic respiratory failure requiring intubation and mechanical ventilation secondary to pulmonary edema, secondary to renal failure requiring hemodialysis. Hence the patient will remain on mechanical ventilation today, we'll continue hemodialysis, adjust ventilator settings accordingly based on the ABG, continue GI and DVT prophylaxis, and we'll address on a daily basis whether the patient could be weaned and extubated. On 10/15/2016, patient was noted to be doing much better, and family is addressing the a short of comfort care, however none of the family members are legal guardians. Including his . Hence we will discuss the CODE STATUS with her legal guardian, in the meantime the patient seems to be ready for extubation, I would proceed with extubation, keep the patient in the ICU, may have to be dialyzed again today, and correct his anemia by giving him a unit of packed RBCs today. 2 history of epilepsy 3 acute hyperkalemia, secondary to renal failure patient is status post dialysis in the ER. 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 The patient has also had previous history of MRSA and pseudomonal line infections, and history of VRE infection 7 history of Pancreatic cancer status post resection of the pancreatic tail 10 history of C. 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 Critical care time is 40 minutes. Time with Patient: Greater than 30
[2016-10-15 17:44] LABS: Anisocytosis Slight; Basophils % (A) 0 %; CH 29.9; CHCM 31.8; Eosinophils # (A) 0.1 k/uL (0-0.7); Eosinophils % (A) 1 %; HCT 30.3 % (39.0-53.0); HDW 3.47; Hypochromasia Moderate; Luc # (Auto) 0.11; Luc % (Auto) 2; Lymphocytes # (A) 1.1 k/uL (1.0-4.8); Lymphocytes % (A) 21 %; MCH 29.1 pg (25.0-35.0); MCHC 30.6 g/dL (31.0-37.0); MCV 95.1 fL (80.0-100.0); Macrocytosis Slight; Monocytes # (A) 0.4 k/uL (0-1.0); Monocytes % (A) 7 %; Neutrophils # (A) 3.7 k/uL (1.3-7.7); Neutrophils % (A) 69 %; Poikilocytosis Slight; RBC 3.19 m/uL (4.30-5.90); RDW 17.9 % (11.5-15.5); WBC 5.3 k/uL (3.8-10.6); WBC (Perox) 5.13
[2016-10-15 17:46] LABS: HGB 9.3 gm/dL (13.0-17.5)
[2016-10-15 18:00] LABS: Glucose,Whole Blood 70 mg/dL (75-99)
--- NOTE | 2016-10-15 18:19 | P.PN ---
Subjective Principal diagnosis: Acute hypoxic respiratory failure Patient is a 46-year-old male who presented to [facility] emergency room with multiple medical problems he was complaining of abdominal pain and vomiting he was noticed to have extremely elevated potassium level he missed several of his dialysis sessions he was started on hemodialysis in the intensive care unit his condition worsened and he started having mental status changes was unresponsiveness his O2 saturation was dropping patient required intubation and mechanical ventilation he was admitted to intensive care unit he was seen by pulmonary and critical care he improved significantly since yesterday and he was extubated today. Currently he is receiving oxygen via nasal cannula and he is tolerating well he is alert and oriented able to answer questions appropriately he admits to missing several of his dialysis sessions he denies taking any extra doses of his pain medications he is stating he is having abdominal pain and has difficulty with swallowing his food and his pills he was having episodes of vomiting prior to admission. Objective - Vital Signs Vital signs: Vital Signs Temp 97.7 F 10/15/16 16:00 Pulse 77 10/15/16 17:00 Resp 13 10/15/16 17:00 BP 155/79 10/15/16 17:00 Pulse Ox 96 10/15/16 17:00 Intake & Output 10/14/16 10/15/16 10/15/16 18:59 06:59 18:59 Intake Total 80.038 453.631 6982.57 Output Total 20 281 610 Balance 60.038 122.956 870.57 Weight 72.575 kg 76.3 kg Intake: IV 220 220 0.9 100 D5W 120 220 Intake, IV Titration 80.038 183.956 20.57 Amount Empty Bag 1 bag @ 10 MCG/ 80.038 183.956 20.57 KG/MIN 4.35 mls/hr IV . [id number] THOM with Propofol 500 mg Rx#:[id number] Blood Product 1240 Rc As-1 Unit 310 [id number] Rc Pheresis 2 As3 Unit 310 [id number] Output: Urine 20 281 610 Other: Voiding Method Indwelling Catheter Indwelling Catheter Indwelling Catheter ABP, PAP, CO, CI - Last Documented Arterial Blood Pressure 123/55 - Exam HEENT head normocephalic and atraumatic Neck is supple no JVD no goiter no lymphadenopathy Chest exam reveals a few scattered rhonchi no wheezing Cardiac exam reveals regular heart sounds S1 and S2 no gallops no murmurs Abdomen is soft with epigastric tenderness no organomegaly with normal bowel sounds Extremity exam reveals no edema no cyanosis or clubbing - Labs CBC & Chem 7: 10/15/16 17:34 10/15/16 04:15 Labs: Abnormal Lab Results - Last 24 Hours (Table) 10/14/16 10/14/16 10/15/16 Range/Units 18:35 21:52 02:41 WBC (3.8-10.6) k/uL RBC (4.30-5.90) m/uL Hgb (13.0-17.5) gm/dL Hct (39.0-53.0) % MCHC (31.0-37.0) g/dL RDW (11.5-15.5) % Plt Count (150-450) k/uL ABG pH (7.35-7.45) ABG pO2 (83-108) mmHg ABG HCO3 (21-25) mmol/L ABG O2 Saturation (94-97) % Potassium (3.5-5.1) mmol/L Chloride (98-107) mmol/L Carbon Dioxide (22-30) mmol/L BUN (9-20) mg/dL Creatinine (0.66-1.25) mg/dL POC Glucose (mg/dL) 56 L 66 L (75-99) mg/dL Calcium (8.4-10.2) mg/dL Phosphorus (2.5-4.5) mg/dL Urine Protein 3+ H (Negative) Urine Blood Small H (Negative) Ur Leukocyte Esterase Moderate H (Negative) Urine WBC 29 H (0-5) /hpf Urine WBC Clumps Few H (None) /hpf Amorphous Sediment Few H (None) /hpf Hyaline Casts 43 H (0-2) /lpf Urine Mucus Rare H (None) /hpf Crossmatch 10/15/16 10/15/16 10/15/16 Range/Units 03:06 04:15 04:15 WBC 3.5 L (3.8-10.6) k/uL RBC 2.03 L (4.30-5.90) m/uL Hgb 6.2 L* D (13.0-17.5) gm/dL Hct 20.0 L* (39.0-53.0) % MCHC 30.8 L (31.0-37.0) g/dL RDW 18.4 H (11.5-15.5) % Plt Count 93 L (150-450) k/uL ABG pH (7.35-7.45) ABG pO2 (83-108) mmHg ABG HCO3 (21-25) mmol/L ABG O2 Saturation (94-97) % Potassium 5.8 H (3.5-5.1) mmol/L Chloride 108 H (98-107) mmol/L Carbon Dioxide 19 L (22-30) mmol/L BUN 66 H (9-20) mg/dL Creatinine 7.20 H* (0.66-1.25) mg/dL POC Glucose (mg/dL) 106 H (75-99) mg/dL Calcium 6.6 L (8.4-10.2) mg/dL Phosphorus 7.5 H (2.5-4.5) mg/dL Urine Protein (Negative) Urine Blood (Negative) Ur Leukocyte Esterase (Negative) Urine WBC (0-5) /hpf Urine WBC Clumps (None) /hpf Amorphous Sediment (None) /hpf Hyaline Casts (0-2) /lpf Urine Mucus (None) /hpf Crossmatch 10/15/16 10/15/16 10/15/16 Range/Units 06:45 07:58 17:34 WBC (3.8-10.6) k/uL RBC 3.19 L (4.30-5.90) m/uL Hgb 9.3 L D (13.0-17.5) gm/dL Hct 30.3 L (39.0-53.0) % MCHC 30.6 L (31.0-37.0) g/dL RDW 17.9 H (11.5-15.5) % Plt Count 99 L (150-450) k/uL ABG pH 7.28 L (7.35-7.45) ABG pO2 181 H (83-108) mmHg ABG HCO3 18 L (21-25) mmol/L ABG O2 Saturation 99.5 H (94-97) % Potassium (3.5-5.1) mmol/L Chloride (98-107) mmol/L Carbon Dioxide (22-30) mmol/L BUN (9-20) mg/dL Creatinine (0.66-1.25) mg/dL POC Glucose (mg/dL) (75-99) mg/dL Calcium (8.4-10.2) mg/dL Phosphorus (2.5-4.5) mg/dL Urine Protein (Negative) Urine Blood (Negative) Ur Leukocyte Esterase (Negative) Urine WBC (0-5) /hpf Urine WBC Clumps (None) /hpf Amorphous Sediment (None) /hpf Hyaline Casts (0-2) /lpf Urine Mucus (None) /hpf Crossmatch See Detail 10/15/16 Range/Units 17:59 WBC (3.8-10.6) k/uL RBC (4.30-5.90) m/uL Hgb (13.0-17.5) gm/dL Hct (39.0-53.0) % MCHC (31.0-37.0) g/dL RDW (11.5-15.5) % Plt Count (150-450) k/uL ABG pH (7.35-7.45) ABG pO2 (83-108) mmHg ABG HCO3 (21-25) mmol/L ABG O2 Saturation (94-97) % Potassium (3.5-5.1) mmol/L Chloride (98-107) mmol/L Carbon Dioxide (22-30) mmol/L BUN (9-20) mg/dL Creatinine (0.66-1.25) mg/dL POC Glucose (mg/dL) 70 L (75-99) mg/dL Calcium (8.4-10.2) mg/dL Phosphorus (2.5-4.5) mg/dL Urine Protein (Negative) Urine Blood (Negative) Ur Leukocyte Esterase (Negative) Urine WBC (0-5) /hpf Urine WBC Clumps (None) /hpf Amorphous Sediment (None) /hpf Hyaline Casts (0-2) /lpf Urine Mucus (None) /hpf Crossmatch Microbiology - Last 24 Hours (Table) 10/14/16 16:06 Blood Culture - Preliminary Blood No Growth after 24 hours 10/14/16 12:18 Gram Stain - Preliminary Sputum Sputum Culture - Preliminary 10/14/16 18:35 Urine Culture - Preliminary Urine,Catheterized Assessment and Plan Plan: #1 intractable nausea and vomiting #2 severe hyperkalemia on admission corrected #3 mental status changes patient is unarousable possible narcotic overdose patient received Narcan in the ER currently he is alert and oriented 3 #4 end-stage renal disease on hemodialysis, patient admits to missing several of his dialysis sessions in the last month he was counseled in length in that regard #5 acute respiratory failure requiring intubation and mechanical ventilation, patient improved he was extubated this morning #6 chronic abdominal pain maintained on narcotics #7 history of pancreatic cancer #8 history of Clostridium difficile colitis in the past #9 previous history of gout #10 history of seizure disorder #11 underlying history of diabetes mellitus At this time patient is admitted to intensive care unit his intubated maintained on mechanical ventilation Continue was current management will follow closely
[2016-10-15] MEDS ORDERED: LABETALOL 100 MG TAB PO ONE (18:40)
[2016-10-15] MEDS ORDERED: levETIRAcetam 250 MG TAB PO SCH (21:00)
[2016-10-15] MEDS ORDERED: LABETALOL 100 MG TAB PO SCH (21:00)
[2016-10-16] MEDS: HEPARIN SODIUM,PORCINE 5,000 UNIT/ML 1 ML VIAL SQ SCH ×4 (01:11→15:51)
[2016-10-16 01:12] LABS: Glucose,Whole Blood 76 mg/dL (75-99)
[2016-10-16] MEDS: HYDROmorphone 1 MG/ML 1 ML SYRINGE IVP PRN ×10 (01:15→21:47)
[2016-10-16 05:11] LABS: Anisocytosis Slight; CH 29.8; HCT 29.5 % (39.0-53.0); HDW 3.57; HGB 9.2 gm/dL (13.0-17.5); Hypochromasia Slight; MCH 29.2 pg (25.0-35.0); MCHC 31.1 g/dL (31.0-37.0); MCV 94.1 fL (80.0-100.0); Mean Platelet Volume 8.9; Poikilocytosis Slight; RBC 3.13 m/uL (4.30-5.90); RDW 17.7 % (11.5-15.5)
[2016-10-16 05:26] LABS: Magnesium 1.9 mg/dL (1.6-2.3); Phosphorous 5.8 mg/dL (2.5-4.5); Potassium 4.4 mmol/L (3.5-5.1)
[2016-10-16 05:47] LABS: Calcium 6.5 mg/dL (8.4-10.2)
[2016-10-16] MEDS ORDERED: CALCIUM GLUCONATE 1,000 MG in SODIUM CHLORIDE 0.9% 100 ML IVPB ONE (06:19)
--- NOTE | 2016-10-16 07:52 | XR ---
EXAMINATION TYPE: XR chest 1V portable DATE OF EXAM: 10/16/2016 6:46 AM COMPARISON: 10/15/2016 INDICATION: Short of breath TECHNIQUE: Single frontal view of the chest is obtained. FINDINGS: The heart size is normal. The pulmonary vasculature is normal. Bibasilar infiltrates are present. A small right pleural effusion is present. There is insertion of a right side port with the tip in the superior vena cava region. No pneumothora x is evident. Nasogastric tube transverses the thorax tip in left upper quadrant of the abdomen. The endotracheal tube is been removed. IMPRESSION: 1. Bibasilar infiltrates with small pleural effusions. 2. Lines and catheters discussed above.
[2016-10-16] MEDS: CALCIUM ACETATE 667 MG CAP PO SCH ×3 (08:10→15:51)
[2016-10-16] MEDS: PANTOPRAZOLE 40 MG/10 ML VIAL IVP SCH ×2 (08:13→21:11)
[2016-10-16] MEDS: LABETALOL 100 MG TAB PO SCH ×3 (08:13→21:11)
[2016-10-16] MEDS: DEXTROSE 5% IN WATER 1,000 ML IV SCH ×2 (08:14→19:55)
--- NOTE | 2016-10-16 09:53 | XR ---
EXAMINATION TYPE: XR abdomen 1V DATE OF EXAM: 10/16/2016 9:49 AM COMPARISON: 10/14/2016 INDICATION: Abdominal distention TECHNIQUE: Single view abdomen supine view FINDINGS: Nonspecific bowel gas is present within small bowel loops as well as the colon. Dilated loops of anastasia l are not evident. Fecal debris is within the ascending and transverse colon. Psoas margins are normal. No organomegaly is present. Small amount of fecal debris is at the level the rectum IMPRESSION: 1. Nonspecific abdomen.
[2016-10-16] MEDS: hydrALAZINE HCL 20 MG/ML 1 ML VIAL IVP PRN (10:30)
[2016-10-16 11:29] LABS: Glucose,Whole Blood 78 mg/dL (75-99)
[2016-10-16] MEDS: METOCLOPRAMIDE 5 MG/ML 2 ML VIAL IVP SCH ×2 (12:26→17:37)
[2016-10-16 14:20] LABS: Amylase 59 U/L (30-110)
--- NOTE | 2016-10-16 14:49 | PN ---
Patient is seen for follow-up for end-stage renal disease. He was admitted to the hospital with severe fluid overload and severe hyperkalemia with a potassium of 9 after not having had dialysis for almost a month. Patient does have some urine output. He has had a strong history of noncompliance and he states that this time that he wants to continue with dialysis and he will be compliant. I have had a lengthy discussion with him regarding noncompliance and the fact that he may not be able to continue dialysis at the unit if he continues to be noncompliant. He is also advised regarding the risks including from from severe hyperkalemia. Patient is scheduled for hemodialysis today. He is normally maintained on a Wednesday, Wednesday, Wednesday schedule as outpatient. On examination today, he is comfortable, awake, not in any acute distress. Blood pressure is 195/94, heart rate 73 per minute. He is afebrile. Examination of the heart S1 and S2. Examination of the lungs: Decreased breath sounds in bases. Abdomen is soft, nontender. The examination of the lower extremities shows edema 1+ bilaterally. 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 Labs show sodium 137, potassium 4.4, hemoglobin 9.2 g/dL. ASSESSMENT: 1. End-stage renal disease on hemodialysis on a Wednesday, Wednesday, Wednesday schedule. Will arrange for hemodialysis today. Patient is being dialyzed out of IJ Perm-A-Cath. 2. Severe hyperkalemia with a potassium of 9 on admission, currently improved post dialysis. 3. Volume overload, currently improved. 4. Respiratory failure. Patient had been intubated. He is currently extubated. 5. History of noncompliance. PLAN: Hemodialysis today. Patient is urged to maintain compliance as outpatient; otherwise he will be discharged from the unit.
[2016-10-16] MEDS: levETIRAcetam IV 750 MG in SODIUM CHLORIDE 0.9% 100 ML IVPB SCH ×2 (15:15→21:12)
--- NOTE | 2016-10-16 17:13 | US ---
EXAMINATION TYPE: US abdomen complete DATE OF EXAM: 10/16/2016 5:01 PM COMPARISON: on PACS CLINICAL HISTORY: abdominal pain. Nausea, GB removed, donated LK EXAM MEASUREMENTS: Liver Length: 14.6 cm Gallbladder Wall: Surgically absent cm CHD: 1.1 cm Spleen: 11.7 cm Right Kidney: 10.7 x 5.7 x 4.4 cm Left Kidney: Surgically absent TECHNOLOGIST IMPRESSION: Pancreas: not seen due to overlying bowel gas Liver: wnl Gallbladder: Surgically absent CHD: Dilated Spleen: wnl Right Kidney: echogenic Left Kidney: Surgically absent Upper IVC: seen Abd Aorta: Obscured by overlying bowel gas Incidental finding- Free fluid seen adjacent to liver and spleen. Free fluid seen in LLQ and RLQ. The liver is homogenous. The intrahepatic portion of the IVC and proximal abdominal aorta are within normal limits. There is no evidence of cholelithiasis. Common bile duct is unremarkable. The visu alized portions of the pancreas are homogenous. The spleen is unremarkable. Kidneys are symmetric a nd free of hydronephrosis. No renal lesions are seen. IMPRESSION: There is mild to moderate ascites. No dilated ducts.
[2016-10-16 17:16] LABS: Glucose,Whole Blood 67 mg/dL (75-99)
--- NOTE | 2016-10-16 17:44 | P.PN ---
Subjective Principal diagnosis: Acute hypoxic respiratory failure Patient is a 46-year-old male who presented to [facility] emergency room with multiple medical problems he was complaining of abdominal pain and vomiting he was noticed to have extremely elevated potassium level he missed several of his dialysis sessions he was started on hemodialysis in the intensive care unit his condition worsened and he started having mental status changes was unresponsiveness his O2 saturation was dropping patient required intubation and mechanical ventilation he was admitted to intensive care unit he was seen by pulmonary and critical care he improved significantly since yesterday and he was extubated today. Currently he is receiving oxygen via nasal cannula and he is tolerating well he is alert and oriented able to answer questions appropriately he admits to missing several of his dialysis sessions he denies taking any extra doses of his pain medications he is stating he is having abdominal pain and has difficulty with swallowing his food and his pills he was having episodes of vomiting prior to admission. Today patient continues to have nausea and occasional vomiting, his still has an NG tube in, he is complaining of abdominal pain, otherwise he is stable and is scheduled to be transferred out of ICU today. Objective - Vital Signs Vital signs: Vital Signs Temp 97.7 F 10/16/16 12:00 Pulse 75 10/16/16 15:00 Resp 12 10/16/16 15:00 BP 155/80 10/16/16 15:00 Pulse Ox 96 10/16/16 14:00 Intake & Output 10/15/16 10/16/16 10/16/16 18:59 06:59 18:59 Intake Total 1600.57 300 260 Output Total 735 3475 525 Balance 865.57 -3233 -094 Weight 72.4 kg Intake: IV 340 300 260 Calcium Gluconate 1,000 100 mg In Sodium Chloride 0.9 % 100 ml @ 100 mls/hr IVPB ONCE ONE Rx#: [id number] D5W 340 300 160 Intake, IV Titration 20.57 Amount Empty Bag 1 bag @ 10 MCG/ 20.57 KG/MIN 4.35 mls/hr IV . [id number] THOM with Propofol 500 mg Rx#:[id number] Blood Product 1240 Rc As-1 Unit 310 [id number] Rc Pheresis 2 As3 Unit 310 [id number] Output: Urine 735 475 525 Other 3000 Other: Voiding Method Indwelling Catheter Indwelling Catheter Indwelling Catheter ABP, PAP, CO, CI - Last Documented Arterial Blood Pressure 123/55 - Exam HEENT head normocephalic and atraumatic Neck is supple no JVD no goiter no lymphadenopathy Chest exam reveals a few scattered rhonchi no wheezing Cardiac exam reveals regular heart sounds S1 and S2 no gallops no murmurs Abdomen is soft with epigastric tenderness no organomegaly with normal bowel sounds Extremity exam reveals no edema no cyanosis or clubbing - Labs CBC & Chem 7: 10/16/16 04:30 10/16/16 04:30 Labs: Abnormal Lab Results - Last 24 Hours (Table) 10/15/16 10/15/16 10/16/16 Range/Units 17:34 17:59 04:30 RBC 3.19 L 3.13 L (4.30-5.90) m/uL Hgb 9.3 L D 9.2 L (13.0-17.5) gm/dL Hct 30.3 L 29.5 L (39.0-53.0) % MCHC 30.6 L (31.0-37.0) g/dL RDW 17.9 H 17.7 H (11.5-15.5) % Plt Count 99 L 85 L (150-450) k/uL Carbon Dioxide (22-30) mmol/L BUN (9-20) mg/dL Creatinine (0.66-1.25) mg/dL POC Glucose (mg/dL) 70 L (75-99) mg/dL Calcium (8.4-10.2) mg/dL Phosphorus (2.5-4.5) mg/dL Lipase (23-300) U/L 10/16/16 10/16/16 10/16/16 Range/Units 04:30 13:53 17:15 RBC (4.30-5.90) m/uL Hgb (13.0-17.5) gm/dL Hct (39.0-53.0) % MCHC (31.0-37.0) g/dL RDW (11.5-15.5) % Plt Count (150-450) k/uL Carbon Dioxide 19 L (22-30) mmol/L BUN 38 H (9-20) mg/dL Creatinine 4.70 H (0.66-1.25) mg/dL POC Glucose (mg/dL) 67 L (75-99) mg/dL Calcium 6.5 L* (8.4-10.2) mg/dL Phosphorus 5.8 H (2.5-4.5) mg/dL Lipase 20 L (23-300) U/L Microbiology - Last 24 Hours (Table) 10/14/16 12:18 Gram Stain - Final Sputum Sputum Culture - Final 10/14/16 18:35 Urine Culture - Final Urine,Catheterized 10/14/16 16:06 Blood Culture - Preliminary Blood No Growth after 24 hours Assessment and Plan Plan: #1 intractable nausea and vomiting, with abdominal pain at this time will check amylase and lipase Will consult gastroenterology will obtain abdominal ultrasound #2 severe hyperkalemia on admission corrected #3 mental status changes patient is unarousable possible narcotic overdose patient received Narcan in the ER currently he is alert and oriented 3 #4 end-stage renal disease on hemodialysis, patient admits to missing several of his dialysis sessions in the last month he was counseled in length in that regard #5 acute respiratory failure requiring intubation and mechanical ventilation, patient improved he was extubated this morning #6 chronic abdominal pain maintained on narcotics #7 history of pancreatic cancer #8 history of Clostridium difficile colitis in the past #9 previous history of gout #10 history of seizure disorder #11 underlying history of diabetes mellitus At this time patient is admitted to intensive care unit his intubated maintained on mechanical ventilation Continue was current management will follow closely
[2016-10-16 18:07] LABS: Glucose,Whole Blood 76 mg/dL (75-99)
--- NOTE | 2016-10-16 18:25 | P.PN ---
Subjective Principal diagnosis: Acute hypoxic respiratory failure secondary to pulmonary edema to chronic renal failure. This is a 46-year-old white male with history of multiple medical problems including chronic renal failure, patient is on hemodialysis. Patient presented to the ER with multiple complaints including shortness of breath, intractable nausea and vomiting, and according to the ER physician the patient was unable to keep down his pain medication. Patient has chronic abdominal pain, and takes significant amount of narcotics to control the pain. Is also known to have history of severe gastroparesis. His last dialysis was last Wednesday done at [facility], but shortly after he arrived to the ER, patient apparently deteriorated, and his pulmonary status became much worse. Patient was intubated, and he was also dialyzed in the ER. His dialysis was done on emergency basis, his potassium upon presentation was 9.4. His BUN was 120 and his creatinine was 11.47. At any rate patient was placed on mechanical ventilation, he was intubated by the ER physician, shortly after, I saw the patient in the ER, I adjusted his ventilator settings, and he is now on 100% FiO2, tidal volume of 550, PEEP of 8, and the rate of 14. He is on assist control mode of mechanical ventilation. Chest x-ray was reviewed and clearly shows evidence of pulmonary edema. This is in spite of dialysis and ultrafiltration. ABG prior to intubation showed a pO2 of 32, pCO2 of 43 and pH of 7.26. Liver enzymes were also slightly elevated, and ammonia level was 36. Blood sugar was 173. Upon my evaluation, the patient was actually sedated, and propofol drip. Not much history could be obtained from the patient himself. Patient was reevaluated today on 10/15/2016, he remains on mechanical ventilation , continues to have slight hyperkalemia which will be addressed by giving him Kayexalate, I'm not certain whether the patient is going to be dialyzed today, chest x-ray today showed significant improvement. Patient is anemic and he will likely require at least a unit of packed RBCs possibly 2 units. Discussed his condition with the family at bedside, and the is inclined to consider comfort care measures, however she is not his legal guardian. Apparently he has a guardian appointed by Court. And he would be approached eventually regarding the CODE STATUS. In the meantime the patient seems to be doing well since he had his dialysis yesterday, and based on his labs and his overall critical status, I would likely wean and extubate the patient today. Indeed the patient was given a short the pressure support and CPAP trial, and he did quite well. Hence I decided to extubate the patient. And the CODE STATUS would have to be discussed later with the patient and possibly with his legal guardian. ABG today showed a pO2 of 181 pCO2 of 40 pH of 7.28 potassium was 5.8 today hemoglobin 6.2 and he is yet to receive at least a unit of packed RBCs. However the need a consent by the legal guardian. Patient was reevaluated today on 10/16/2016, tolerated the extubation quite well no major issues over the last 24 hours. Patient was dialyzed again yesterday, and his labs showed normal potassium today, hemoglobin is 9.2, BUN is 38 and creatinine is 4.7. Patient has a bit of abdominal distention and some vague abdominal pain, this is relatively chronic for the patient and he has a history of gastroparesis. Flat plate of the abdomen was nonspecific, ultrasound of the abdomen showed mild to moderate ascites. Objective - Vital Signs Vital signs: Vital Signs Temp 97.7 F 10/16/16 12:00 Pulse 75 10/16/16 15:00 Resp 12 10/16/16 16:00 BP 155/80 10/16/16 15:00 Pulse Ox 96 10/16/16 14:00 Intake & Output 10/15/16 10/16/16 10/16/16 18:59 06:59 18:59 Intake Total 1600.57 300 260 Output Total 735 3475 525 Balance 865.57 -5100 -646 Weight 72.4 kg Intake: IV 340 300 260 Calcium Gluconate 1,000 100 mg In Sodium Chloride 0.9 % 100 ml @ 100 mls/hr IVPB ONCE ONE Rx#: [id number] D5W 340 300 160 Intake, IV Titration 20.57 Amount Empty Bag 1 bag @ 10 MCG/ 20.57 KG/MIN 4.35 mls/hr IV . [id number] THOM with Propofol 500 mg Rx#:[id number] Blood Product 1240 Rc As-1 Unit 310 [id number] Rc Pheresis 2 As3 Unit 310 [id number] Output: Urine 735 475 525 Other 3000 Other: Voiding Method Indwelling Catheter Indwelling Catheter Indwelling Catheter ABP, PAP, CO, CI - Last Documented Arterial Blood Pressure 123/55 - Exam Physical Exam: Revealed a 46-year-old white male on nasal cannula, in no distress.. HEENT:[Neck is supple.] [No neck masses.] [No thyromegaly.] [No JVD.] Endotracheal tube is intact. Chest: Crackles and rhonchi noted bilaterally] Cardiac Exam: [Normal S1 and S2, no S3 gallop, 2/6 systolic murmur. Throughout the precordium] Abdomen: Slightly distended, no rebound, no guarding, diminished bowel sounds. Extremities: [No clubbing, 2 + bipedal edema, no cyanosis.] Neurological Exam: No focal deficit was noted when the patient was off sedation. - Labs CBC & Chem 7: 10/16/16 04:30 10/16/16 04:30 Labs: Abnormal Lab Results - Last 24 Hours (Table) 10/16/16 10/16/16 10/16/16 Range/Units 04:30 04:30 13:53 RBC 3.13 L (4.30-5.90) m/uL Hgb 9.2 L (13.0-17.5) gm/dL Hct 29.5 L (39.0-53.0) % RDW 17.7 H (11.5-15.5) % Plt Count 85 L (150-450) k/uL Carbon Dioxide 19 L (22-30) mmol/L BUN 38 H (9-20) mg/dL Creatinine 4.70 H (0.66-1.25) mg/dL POC Glucose (mg/dL) (75-99) mg/dL Calcium 6.5 L* (8.4-10.2) mg/dL Phosphorus 5.8 H (2.5-4.5) mg/dL Lipase 20 L (23-300) U/L 10/16/16 Range/Units 17:15 RBC (4.30-5.90) m/uL Hgb (13.0-17.5) gm/dL Hct (39.0-53.0) % RDW (11.5-15.5) % Plt Count (150-450) k/uL Carbon Dioxide (22-30) mmol/L BUN (9-20) mg/dL Creatinine (0.66-1.25) mg/dL POC Glucose (mg/dL) 67 L (75-99) mg/dL Calcium (8.4-10.2) mg/dL Phosphorus (2.5-4.5) mg/dL Lipase (23-300) U/L Microbiology - Last 24 Hours (Table) 10/14/16 16:06 Blood Culture - Preliminary Blood No Growth after 48 hours 10/14/16 12:18 Gram Stain - Final Sputum Sputum Culture - Final 10/14/16 18:35 Urine Culture - Final Urine,Catheterized Assessment and Plan Plan: Impression: 1 Acute hypoxic respiratory failure requiring intubation and mechanical ventilation secondary to pulmonary edema, secondary to renal failure requiring hemodialysis. Hence the patient will remain on mechanical ventilation today, we'll continue hemodialysis, adjust ventilator settings accordingly based on the ABG, continue GI and DVT prophylaxis, and we'll address on a daily basis whether the patient could be weaned and extubated. On 10/15/2016, patient was noted to be doing much better, and family is addressing the a short of comfort care, however none of the family members are legal guardians. Including his . Hence we will discuss the CODE STATUS with her legal guardian, in the meantime the patient seems to be ready for extubation, I would proceed with extubation, keep the patient in the ICU, may have to be dialyzed again today, and correct his anemia by giving him a unit of packed RBCs today. On 10/16/2016, patient tolerated the extubation well, overall the patient is doing great, I plan to transfer the patient out of the ICU today to a regular medical floor. 2 history of epilepsy 3 acute hyperkalemia, secondary to renal failure patient is status post dialysis in the ER. 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 The patient has also had previous history of MRSA and pseudomonal line infections, and history of VRE infection 7 history of Pancreatic cancer status post resection of the pancreatic tail 10 history of C. 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 Time with Patient: Less than 30
[2016-10-16 21:36] LABS: Glucose,Whole Blood 137 mg/dL (75-99)
[2016-10-17] MEDS: METOCLOPRAMIDE 5 MG/ML 2 ML VIAL IVP SCH ×4 (00:32→17:13)
[2016-10-17] MEDS: HEPARIN SODIUM,PORCINE 5,000 UNIT/ML 1 ML VIAL SQ SCH ×4 (00:36→23:45)
[2016-10-17] MEDS: hydrALAZINE HCL 20 MG/ML 1 ML VIAL IVP PRN (00:38)
[2016-10-17] MEDS ORDERED: HEPARIN SODIUM,PORCINE 5,000 UNIT/ML 1 ML VIAL ONE (02:30)
[2016-10-17 03:14] LABS: Hepatitis B Surface Ag Index 0.07
[2016-10-17 03:35] LABS: Hepatitis B Surface Antibody Negative (Negative)
[2016-10-17] MEDS: HYDROmorphone 1 MG/ML 1 ML SYRINGE IVP PRN ×4 (05:30→13:05)
[2016-10-17 06:22] LABS: Glucose,Whole Blood 94 mg/dL (75-99)
--- NOTE | 2016-10-17 07:35 | XR ---
EXAMINATION TYPE: XR chest 1V portable DATE OF EXAM: 10/17/2016 7:16 AM COMPARISON: 10/16/2016 INDICATION: Short of breath TECHNIQUE: Single frontal view of the chest is obtained. FINDINGS: The heart size is normal. The pulmonary vasculature is normal. Bibasilar infiltrates and small pleural effusions are present. Findings are worsening from prior stud y. Nasogastric tube transverses the thorax. Catheter is present on the left with the tips in the right v entricle. Right port is present with tip in superior vena cava region. IMPRESSION: 1. Worsening small bilateral pleural effusions with adjacent atelectasis.
[2016-10-17] MEDS: levETIRAcetam IV 750 MG in SODIUM CHLORIDE 0.9% 100 ML IVPB SCH ×2 (08:17→21:21)
[2016-10-17] MEDS: PANTOPRAZOLE 40 MG/10 ML VIAL IVP SCH ×2 (08:18→21:21)
[2016-10-17] MEDS: LABETALOL 100 MG TAB PO SCH ×2 (08:19→21:21)
[2016-10-17] MEDS: CALCIUM ACETATE 667 MG CAP PO SCH ×3 (08:20→17:14)
[2016-10-17 08:46] LABS: Glucose,Whole Blood 116 mg/dL (75-99)
--- NOTE | 2016-10-17 09:18 | P.PN ---
Subjective Feeling a little better. NGT is in. Had HD yesterday and did well. Objective - Vital Signs Vital signs: Vital Signs Temp 97.3 F L 10/17/16 07:00 Pulse 82 10/17/16 07:00 Resp 16 10/17/16 07:00 BP 166/79 10/17/16 07:00 Pulse Ox 93 L 10/17/16 07:00 Intake & Output 10/16/16 10/17/16 10/17/16 18:59 06:59 18:59 Intake Total 260 40 Output Total 525 400 Balance -265 -360 Intake: IV 260 Calcium Gluconate 1,000 100 mg In Sodium Chloride 0.9 % 100 ml @ 100 mls/hr IVPB ONCE ONE Rx#: [id number] D5W 160 Oral 40 Output: Urine 525 400 Other: Voiding Method Indwelling Catheter Indwelling Catheter # Voids 0 # Bowel Movements 0 ABP, PAP, CO, CI - Last Documented Arterial Blood Pressure 123/55 - Constitutional General appearance: Present: cooperative, no acute distress - Respiratory Respiratory: bilateral: CTA - Cardiovascular Rhythm: regular Heart sounds: normal: S1, S2 - Peripheral edema leg Peripheral Edema: bilateral: Trace - Gastrointestinal General gastrointestinal: Present: distended, soft - Labs CBC & Chem 7: 10/16/16 04:30 10/16/16 04:30 Labs: Abnormal Lab Results - Last 24 Hours (Table) 10/16/16 10/16/16 10/16/16 Range/Units 13:53 17:15 21:23 POC Glucose (mg/dL) 67 L 137 H (75-99) mg/dL Lipase 20 L (23-300) U/L 10/17/16 Range/Units 08:22 POC Glucose (mg/dL) 116 H (75-99) mg/dL Lipase (23-300) U/L Microbiology - Last 24 Hours (Table) 10/14/16 16:06 Blood Culture - Preliminary Blood No Growth after 48 hours 10/14/16 12:18 Gram Stain - Final Sputum Sputum Culture - Final Assessment and Plan Plan: Assessment/Plan #1. End-stage renal disease maintained on hemodialysis on a Wednesday schedule via a permacath. --Patient has been extremely noncompliant with hemodialysis as an outpatient and has missed over a month of treatment. --Plan for HD on Wednesday. #2. Hyperkalemia secondary to noncompliance with hemodialysis. --Resolved. #3. Acute on Chronic anemia. Hb stable. #4. Metabolic acidosis secondary to chronic kidney disease. --Improved. #5. Insulin-dependent diabetes mellitus. #6. Chronic kidney disease mineral bone disease.
[2016-10-17 11:05] LABS: Anisocytosis Slight; CH 29.7; HCT 30.9 % (39.0-53.0); HDW 3.52; HGB 9.9 gm/dL (13.0-17.5); Hypochromasia Slight; MCHC 32.1 g/dL (31.0-37.0); MCV 93.5 fL (80.0-100.0); Mean Platelet Volume 8.2; Poikilocytosis Slight; RDW 17.6 % (11.5-15.5); WBC 5.1 k/uL (3.8-10.6)
[2016-10-17 11:19] LABS: Magnesium 1.7 mg/dL (1.6-2.3); Phosphorous 5.6 mg/dL (2.5-4.5); Potassium 4.3 mmol/L (3.5-5.1)
[2016-10-17 11:27] LABS: Calcium 6.5 mg/dL (8.4-10.2)
[2016-10-17 11:32] LABS: Glucose,Whole Blood 108 mg/dL (75-99)
--- NOTE | 2016-10-17 12:56 | P.PN ---
Subjective This is a 46-year-old white male with history of multiple medical problems including chronic renal failure, patient is on hemodialysis. Patient presented to the ER with multiple complaints including shortness of breath, intractable nausea and vomiting, and according to the ER physician the patient was unable to keep down his pain medication. Patient has chronic abdominal pain, and takes significant amount of narcotics to control the pain. Is also known to have history of severe gastroparesis. His last dialysis was last Wednesday done at [facility], but shortly after he arrived to the ER, patient apparently deteriorated, and his pulmonary status became much worse. Patient was intubated, and he was also dialyzed in the ER. His dialysis was done on emergency basis, his potassium upon presentation was 9.4. His BUN was 120 and his creatinine was 11.47. At any rate patient was placed on mechanical ventilation, he was intubated by the ER physician, shortly after, I saw the patient in the ER, I adjusted his ventilator settings, and he is now on 100% FiO2, tidal volume of 550, PEEP of 8, and the rate of 14. He is on assist control mode of mechanical ventilation. Chest x-ray was reviewed and clearly shows evidence of pulmonary edema. This is in spite of dialysis and ultrafiltration. ABG prior to intubation showed a pO2 of 32, pCO2 of 43 and pH of 7.26. Liver enzymes were also slightly elevated, and ammonia level was 36. Blood sugar was 173. Upon my evaluation, the patient was actually sedated, and propofol drip. Not much history could be obtained from the patient himself. The patient is seen again today in follow-up on 10/17/2016. He is out on the regular medical floor now. He is awake and alert in no acute distress. He denies any worsening shortness of breath, cough or congestion. Current blood glucose 111. His creatinine is improved to 3.86. He has no complaints currently. Objective - Vital Signs Vital signs: Vital Signs Temp 97.3 F L 10/17/16 07:00 Pulse 82 10/17/16 07:00 Resp 16 10/17/16 07:00 BP 166/79 10/17/16 07:00 Pulse Ox 93 L 10/17/16 07:00 Intake & Output 10/16/16 10/17/16 10/17/16 18:59 06:59 18:59 Intake Total 260 40 Output Total 525 400 250 Balance -265 360 -250 Weight 72.4 kg Intake: IV 260 Calcium Gluconate 1,000 100 mg In Sodium Chloride 0.9 % 100 ml @ 100 mls/hr IVPB ONCE ONE Rx#: [id number] D5W 160 Oral 40 Output: Urine 525 400 250 Other: Voiding Method Indwelling Catheter Indwelling Catheter # Voids 0 # Bowel Movements 0 ABP, PAP, CO, CI - Last Documented Arterial Blood Pressure 123/55 - Exam GENERAL EXAM: Alert, comfortable in no apparent distress. HEAD: Normocephalic. EYES: Normal reaction of pupils, equal size. NOSE: Clear with pink turbinates. THROAT: No erythema or exudates. NECK: No masses, no JVD. CHEST: No chest wall deformity. LUNGS: Equal air entry with faint crackles in the posterior bases.. CVS: S1 and S2 normal with an audible systolic murmur, regular rhythm. ABDOMEN: Soft, normal bowel sounds, no guarding or rigidity. Extremities: There is trace peripheral edema. No clubbing, no cyanosis. Peripheral pulses are intact. - Labs CBC & Chem 7: 10/17/16 10:50 10/17/16 10:50 Labs: Abnormal Lab Results - Last 24 Hours (Table) 10/16/16 10/16/16 10/16/16 Range/Units 13:53 17:15 21:23 RBC (4.30-5.90) m/uL Hgb (13.0-17.5) gm/dL Hct (39.0-53.0) % RDW (11.5-15.5) % Plt Count (150-450) k/uL BUN (9-20) mg/dL Creatinine (0.66-1.25) mg/dL Glucose (74-99) mg/dL POC Glucose (mg/dL) 67 L 137 H (75-99) mg/dL Calcium (8.4-10.2) mg/dL Phosphorus (2.5-4.5) mg/dL Lipase 20 L (23-300) U/L 10/17/16 10/17/16 10/17/16 Range/Units 08:22 10:50 10:50 RBC 3.30 L (4.30-5.90) m/uL Hgb 9.9 L (13.0-17.5) gm/dL Hct 30.9 L (39.0-53.0) % RDW 17.6 H (11.5-15.5) % Plt Count 88 L (150-450) k/uL BUN 28 H (9-20) mg/dL Creatinine 3.86 H (0.66-1.25) mg/dL Glucose 111 H (74-99) mg/dL POC Glucose (mg/dL) 116 H (75-99) mg/dL Calcium 6.5 L* (8.4-10.2) mg/dL Phosphorus 5.6 H (2.5-4.5) mg/dL Lipase (23-300) U/L 10/17/16 Range/Units 11:28 RBC (4.30-5.90) m/uL Hgb (13.0-17.5) gm/dL Hct (39.0-53.0) % RDW (11.5-15.5) % Plt Count (150-450) k/uL BUN (9-20) mg/dL Creatinine (0.66-1.25) mg/dL Glucose (74-99) mg/dL POC Glucose (mg/dL) 108 H (75-99) mg/dL Calcium (8.4-10.2) mg/dL Phosphorus (2.5-4.5) mg/dL Lipase (23-300) U/L Microbiology - Last 24 Hours (Table) 10/14/16 16:06 Blood Culture - Preliminary Blood No Growth after 48 hours 10/14/16 12:18 Gram Stain - Final Sputum Sputum Culture - Final Assessment and Plan Plan: Impression: 1 Acute hypoxic respiratory failure requiring intubation and mechanical ventilation secondary to pulmonary edema, secondary to renal failure requiring hemodialysis. 2 history of epilepsy 3 acute hyperkalemia, secondary to renal failure patient is status post dialysis in the ER. 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 The patient has also had previous history of MRSA and pseudomonal line infections, and history of VRE infection 7 history of Pancreatic cancer status post resection of the pancreatic tail 10 history of C. 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 Packer. The patient is stable from the pulmonary and critical care point. We'll continue with his current medications. Nephrology is on the case and is planning for hemodialysis on Wednesday. The patient is again educated regarding the importance of medication and hemodialysis compliance. We will follow with the patient on as-needed basis.
--- NOTE | 2016-10-17 14:03 | CONS ---
DATE OF CONSULTATION: 10/17/2016 REASON FOR CONSULTATION: Nausea, vomiting. HISTORY OF PRESENT ILLNESS: The patient is a 46-year-old white male with history of end-stage renal disease on hemodialysis, hypertension, history of severe diabetic gastroparesis with multiple hospitalizations over the last several years, was just transferred from the ICU because he was admitted with acute respiratory failure secondary to pulmonary edema. Apparently this morning he actually accidentally pulled out the NG tube, however, since then he is doing alright. He denies any further episodes of nausea, vomiting. The patient states that recently he missed a few cycles of dialysis and for the last 2 weeks has been having some nausea, vomiting almost on a daily basis. The patient in the past had multiple upper endoscopies done as well as upper endoscopy with Botox injection of the pyloric sphincter for gastroparesis with minimal help. This morning he complains of some abdominal discomfort. No nausea, vomiting. Denies any fever, chills, night sweats. Last upper endoscopy was done in 2014. Past medical history is significant for long-standing history of diabetes mellitus, hypertension, hyperlipidemia, osteoarthritis, end-stage renal disease on hemodialysis, history of seizure disorder, sleep apnea. PAST SURGICAL HISTORY: Cholecystectomy, left nephrectomy, pancreatic surgery. Medications at home include folic acid, Trandate, Claritin, Lyrica, Flexeril, Humalog, oxymorphone, Keppra, oxycodone. Allergies to MORPHINE. SOCIAL HISTORY: No smoker. No alcohol use. Uses marijuana on a regular basis. FAMILY HISTORY: Father had liver cancer. Mother had lung cancer. REVIEW OF SYSTEMS: CARDIOPULMONARY: No chest pain or shortness of breath. GENITOURINARY: No dysuria or hematuria. MUSCULOSKELETAL: Complains of back pain. NEUROLOGY: Unremarkable. PSYCHIATRIC: Unremarkable. ENT/VISION: Unremarkable. CONSTITUTIONAL: No recent weight loss. No fever, chills or night sweats. GI: As mentioned above. HEMATOLOGY: Unremarkable. On physical examination, he appears comfortable in no apparent distress. Vital signs are stable. Blood pressure is 152/76, pulse is 76, temperature 97.2. HEENT EXAMINATION: Unremarkable. Conjunctivae pink. Sclerae anicteric. Oral cavity, no lesions. NECK: No JVD or lymph node enlargement. Chest was clear to auscultation. HEART: Regular rate and rhythm. ABDOMEN: Slightly tender diffusely, but it was soft. Bowel sounds are positive. No organomegaly. EXTREMITIES: No pedal edema. SKIN: No rashes. NEURO: He is alert and oriented x3. No focal deficits. Labs done today WBC 5.1, hemoglobin 9.9, platelets are 88,000. Basic metabolic panel is still pending. BUN is 38 and creatinine 4.7 from yesterday. IMPRESSION: 1. Acute respiratory failure secondary to pulmonary edema. Patient was in the ICU, mechanically ventilated, was extubated yesterday and was transferred to the floor today, doing well. 2. Long-standing history of diabetes mellitus and diabetic gastroparesis with intermittent nausea, vomiting. The patient had an NG tube in place until this morning he accidentally pulled it out, but so far tolerating well. No further episodes of nausea or vomiting. 3. Long-standing history of diabetes mellitus. 4. Hypertension. 5. End-stage renal disease on hemodialysis. Recently missed a few sessions of dialysis. 6. The patient had hyperkalemia at the time of admission to the hospital, which subsequently has been corrected. RECOMMENDATIONS: 1. Continue with IV Protonix. 2. Will start him on a clear liquid diet and advance as tolerated and see how he handles. 3. Antiemetics as needed. 4. No plans for any endoscopic intervention and will follow the patient closely during his hospital stay. Thank you for this consultation.
--- NOTE | 2016-10-17 14:06 | P.PN ---
Subjective Principal diagnosis: Acute hypoxic respiratory failure Patient is a 46-year-old male who presented to [facility] emergency room with multiple medical problems he was complaining of abdominal pain and vomiting he was noticed to have extremely elevated potassium level he missed several of his dialysis sessions he was started on hemodialysis in the intensive care unit his condition worsened and he started having mental status changes was unresponsiveness his O2 saturation was dropping patient required intubation and mechanical ventilation he was admitted to intensive care unit he was seen by pulmonary and critical care he improved significantly since yesterday and he was extubated today. Currently he is receiving oxygen via nasal cannula and he is tolerating well he is alert and oriented able to answer questions appropriately he admits to missing several of his dialysis sessions he denies taking any extra doses of his pain medications he is stating he is having abdominal pain and has difficulty with swallowing his food and his pills he was having episodes of vomiting prior to admission. Today patient continues to have nausea and abdominal pain, NG tube is out.otherwise he is stable and is scheduled to be transferred out of ICU today. Patient is requesting more medication for abdominal pain Objective - Vital Signs Vital signs: Vital Signs Temp 97.3 F L 10/17/16 07:00 Pulse 82 10/17/16 07:00 Resp 16 10/17/16 07:00 BP 166/79 10/17/16 07:00 Pulse Ox 93 L 10/17/16 07:00 Intake & Output 10/16/16 10/17/16 10/17/16 18:59 06:59 18:59 Intake Total 260 40 800 Output Total 525 400 250 Balance -265 -360 550 Weight 72.4 kg Intake: IV 260 160 Calcium Gluconate 1,000 100 mg In Sodium Chloride 0.9 % 100 ml @ 100 mls/hr IVPB ONCE ONE Rx#: [id number] D5W 160 160 Intake, IV Titration 100 Amount levETIRAcetam IV 750 mg 100 In Sodium Chloride 0.9% 100 ml @ 400 mls/hr IVPB Q12HR [facility] Rx#:[id number] Oral 40 540 Output: Urine 525 400 250 Other: Voiding Method Indwelling Catheter Indwelling Catheter # Voids 0 # Bowel Movements 0 ABP, PAP, CO, CI - Last Documented Arterial Blood Pressure 123/55 - Exam HEENT head normocephalic and atraumatic Neck is supple no JVD no goiter no lymphadenopathy Chest exam reveals a few scattered rhonchi no wheezing Cardiac exam reveals regular heart sounds S1 and S2 no gallops no murmurs Abdomen is soft with epigastric tenderness no organomegaly with normal bowel sounds Extremity exam reveals no edema no cyanosis or clubbing - Labs CBC & Chem 7: 10/17/16 10:50 10/17/16 10:50 Labs: Abnormal Lab Results - Last 24 Hours (Table) 10/16/16 10/16/16 10/16/16 Range/Units 13:53 17:15 21:23 RBC (4.30-5.90) m/uL Hgb (13.0-17.5) gm/dL Hct (39.0-53.0) % RDW (11.5-15.5) % Plt Count (150-450) k/uL BUN (9-20) mg/dL Creatinine (0.66-1.25) mg/dL Glucose (74-99) mg/dL POC Glucose (mg/dL) 67 L 137 H (75-99) mg/dL Calcium (8.4-10.2) mg/dL Phosphorus (2.5-4.5) mg/dL Lipase 20 L (23-300) U/L 10/17/16 10/17/16 10/17/16 Range/Units 08:22 10:50 10:50 RBC 3.30 L (4.30-5.90) m/uL Hgb 9.9 L (13.0-17.5) gm/dL Hct 30.9 L (39.0-53.0) % RDW 17.6 H (11.5-15.5) % Plt Count 88 L (150-450) k/uL BUN 28 H (9-20) mg/dL Creatinine 3.86 H (0.66-1.25) mg/dL Glucose 111 H (74-99) mg/dL POC Glucose (mg/dL) 116 H (75-99) mg/dL Calcium 6.5 L* (8.4-10.2) mg/dL Phosphorus 5.6 H (2.5-4.5) mg/dL Lipase (23-300) U/L 10/17/16 Range/Units 11:28 RBC (4.30-5.90) m/uL Hgb (13.0-17.5) gm/dL Hct (39.0-53.0) % RDW (11.5-15.5) % Plt Count (150-450) k/uL BUN (9-20) mg/dL Creatinine (0.66-1.25) mg/dL Glucose (74-99) mg/dL POC Glucose (mg/dL) 108 H (75-99) mg/dL Calcium (8.4-10.2) mg/dL Phosphorus (2.5-4.5) mg/dL Lipase (23-300) U/L Microbiology - Last 24 Hours (Table) 10/14/16 16:06 Blood Culture - Preliminary Blood No Growth after 48 hours 10/14/16 12:18 Gram Stain - Final Sputum Sputum Culture - Final Assessment and Plan Plan: #1 intractable nausea and vomiting, with abdominal pain at this time will check amylase and lipase Will consult gastroenterology will obtain abdominal ultrasound #2 severe hyperkalemia on admission corrected #3 mental status changes patient is unarousable possible narcotic overdose patient received Narcan in the ER currently he is alert and oriented 3 #4 end-stage renal disease on hemodialysis, patient admits to missing several of his dialysis sessions in the last month he was counseled in length in that regard #5 acute respiratory failure requiring intubation and mechanical ventilation, patient improved he was extubated this morning #6 chronic abdominal pain maintained on narcotics #7 history of pancreatic cancer #8 history of Clostridium difficile colitis in the past #9 previous history of gout #10 history of seizure disorder #11 underlying history of diabetes mellitus At this time patient is admitted to intensive care unit his intubated maintained on mechanical ventilation Continue was current management will follow closely
[2016-10-17] MEDS: HYDROmorphone 2 MG/ML 1 ML SYRINGE IVP PRN ×3 (15:32→21:15)
[2016-10-17 17:11] LABS: Glucose,Whole Blood 139 mg/dL (75-99)
[2016-10-18] MEDS: HYDROmorphone 2 MG/ML 1 ML SYRINGE IVP PRN ×8 (00:10→21:04)
[2016-10-18] MEDS: METOCLOPRAMIDE 5 MG/ML 2 ML VIAL IVP SCH ×4 (00:15→17:12)
[2016-10-18 00:55] LABS: Glucose,Whole Blood 109 mg/dL (75-99)
[2016-10-18 07:38] LABS: Glucose,Whole Blood 104 mg/dL (75-99)
[2016-10-18] MEDS: HEPARIN SODIUM,PORCINE 5,000 UNIT/ML 1 ML VIAL SQ SCH ×2 (08:20→16:35)
[2016-10-18] MEDS: CALCIUM ACETATE 667 MG CAP PO SCH ×3 (08:23→17:12)
[2016-10-18] MEDS: PANTOPRAZOLE 40 MG/10 ML VIAL IVP SCH ×2 (08:23→20:20)
[2016-10-18] MEDS: LABETALOL 100 MG TAB PO SCH ×2 (08:23→20:20)
[2016-10-18] MEDS: levETIRAcetam IV 750 MG in SODIUM CHLORIDE 0.9% 100 ML IVPB SCH ×2 (08:23→20:20)
[2016-10-18] MEDS: DEXTROSE 5% IN WATER 1,000 ML IV SCH (08:24)
[2016-10-18 09:15] LABS: Anisocytosis Slight; Basophils % (A) 0 %; CH 29.7; CHCM 31.7; Eosinophils # (A) 0.1 k/uL (0-0.7); Eosinophils % (A) 2 %; HCT 30.8 % (39.0-53.0); HDW 3.43; HGB 9.4 gm/dL (13.0-17.5); Hypochromasia Moderate; Luc % (Auto) 2; Lymphocytes # (A) 0.7 k/uL (1.0-4.8); Lymphocytes % (A) 16 %; MCH 28.8 pg (25.0-35.0); MCHC 30.5 g/dL (31.0-37.0); MCV 94.4 fL (80.0-100.0); Monocytes # (A) 0.3 k/uL (0-1.0); Monocytes % (A) 8 %; Neutrophils # (A) 3.1 k/uL (1.3-7.7); Neutrophils % (A) 72 %; Poikilocytosis Slight; RBC 3.26 m/uL (4.30-5.90); RDW 17.6 % (11.5-15.5); WBC 4.2 k/uL (3.8-10.6); WBC (Perox) 4.29
[2016-10-18 09:32] LABS: Calcium 6.6 mg/dL (8.4-10.2); Magnesium 1.7 mg/dL (1.6-2.3); Phosphorous 5.9 mg/dL (2.5-4.5); Potassium 4.8 mmol/L (3.5-5.1); Total Bilirubin 0.5 mg/dL (0.2-1.3); Total Protein 5.1 g/dL (6.3-8.2)
--- NOTE | 2016-10-18 10:50 | P.PN ---
Subjective NGT is out. Tolerated breakfast. No abdominal pain. he is MWF HD. Objective - Vital Signs Vital signs: Vital Signs Temp 97.6 F 10/18/16 07:00 Pulse 75 10/18/16 07:00 Resp 20 10/18/16 07:00 BP 158/87 10/18/16 07:00 Pulse Ox 90 L 10/18/16 07:00 Intake & Output 10/17/16 10/18/16 10/18/16 18:59 06:59 18:59 Intake Total 800 1040 Output Total 450 600 Balance 350 440 Weight 72.4 kg Intake: IV 160 D5W 160 Intake, IV Titration 100 Amount levETIRAcetam IV 750 mg 100 In Sodium Chloride 0.9% 100 ml @ 400 mls/hr IVPB Q12HR [facility] Rx#:[id number] Oral 540 1040 Output: Urine 450 600 Other: # Voids 1 0 # Bowel Movements 2 0 ABP, PAP, CO, CI - Last Documented Arterial Blood Pressure 123/55 - Constitutional General appearance: Present: cooperative, no acute distress - Respiratory Respiratory: bilateral: CTA - Cardiovascular Rhythm: regular Heart sounds: normal: S1, S2 - Peripheral edema leg Peripheral Edema: bilateral: Trace - Gastrointestinal General gastrointestinal: Present: soft - Labs CBC & Chem 7: 10/18/16 08:40 10/18/16 08:40 Labs: Abnormal Lab Results - Last 24 Hours (Table) 10/17/16 10/17/16 10/17/16 Range/Units 10:50 10:50 11:28 RBC 3.30 L (4.30-5.90) m/uL Hgb 9.9 L (13.0-17.5) gm/dL Hct 30.9 L (39.0-53.0) % MCHC (31.0-37.0) g/dL RDW 17.6 H (11.5-15.5) % Plt Count 88 L (150-450) k/uL Lymphocytes # (1.0-4.8) k/uL BUN 28 H (9-20) mg/dL Creatinine 3.86 H (0.66-1.25) mg/dL Glucose 111 H (74-99) mg/dL POC Glucose (mg/dL) 108 H (75-99) mg/dL Calcium 6.5 L* (8.4-10.2) mg/dL Phosphorus 5.6 H (2.5-4.5) mg/dL Total Protein (6.3-8.2) g/dL Albumin (3.5-5.0) g/dL 10/17/16 10/18/16 10/18/16 Range/Units 16:56 00:48 07:33 RBC (4.30-5.90) m/uL Hgb (13.0-17.5) gm/dL Hct (39.0-53.0) % MCHC (31.0-37.0) g/dL RDW (11.5-15.5) % Plt Count (150-450) k/uL Lymphocytes # (1.0-4.8) k/uL BUN (9-20) mg/dL Creatinine (0.66-1.25) mg/dL Glucose (74-99) mg/dL POC Glucose (mg/dL) 139 H 109 H 104 H (75-99) mg/dL Calcium (8.4-10.2) mg/dL Phosphorus (2.5-4.5) mg/dL Total Protein (6.3-8.2) g/dL Albumin (3.5-5.0) g/dL 10/18/16 10/18/16 Range/Units 08:40 08:40 RBC 3.26 L (4.30-5.90) m/uL Hgb 9.4 L (13.0-17.5) gm/dL Hct 30.8 L (39.0-53.0) % MCHC 30.5 L (31.0-37.0) g/dL RDW 17.6 H (11.5-15.5) % Plt Count 76 L (150-450) k/uL Lymphocytes # 0.7 L (1.0-4.8) k/uL BUN 30 H (9-20) mg/dL Creatinine 4.40 H (0.66-1.25) mg/dL Glucose (74-99) mg/dL POC Glucose (mg/dL) (75-99) mg/dL Calcium 6.6 L (8.4-10.2) mg/dL Phosphorus 5.9 H (2.5-4.5) mg/dL Total Protein 5.1 L (6.3-8.2) g/dL Albumin 2.4 L (3.5-5.0) g/dL Microbiology - Last 24 Hours (Table) 10/14/16 16:06 Blood Culture - Preliminary Blood No Growth after 72 hours Assessment and Plan Plan: Assessment/Plan #1. End-stage renal disease maintained on hemodialysis on a Wednesday schedule via a permacath. --Patient has been extremely noncompliant with hemodialysis as an outpatient and has missed over a month of treatment. --Plan for HD on Wednesday. #2. Hyperkalemia secondary to noncompliance with hemodialysis. --Resolved. #3. Acute on Chronic anemia. Hb stable. #4. Metabolic acidosis secondary to chronic kidney disease. --Improved. #5. Insulin-dependent diabetes mellitus. #6. Chronic kidney disease mineral bone disease.
--- NOTE | 2016-10-18 11:33 | PN ---
Patient is a 46-year-old white male with history of end-stage renal disease on hemodialysis was admitted to the hospital with acute respiratory failure and was intubated and subsequently was extubated and transferred to the regular floor yesterday. He is doing much better. We were consulted for persistent nausea or vomiting. He is feeling much better. He was on a clear liquid diet yesterday, tolerating well. In fact requesting for advancing diet today. He does complain of some epigastric discomfort. He denies any new symptoms. On physical examination, he appears comfortable in no apparent distress. Vitals as are stable. Blood pressure is 115/57, pulse 73, respirations 18, and temperature 97.4. HEENT EXAMINATION: Unremarkable. Conjunctivae pink. Sclerae anicteric. Oral cavity, no lesions. NECK: No JVD or lymph node enlargement. Chest was clear to auscultation. HEART: Regular rate and rhythm. ABDOMEN: Soft, mild tenderness in the epigastric area. Bowel sounds are positive. No organomegaly. EXTREMITIES: No pedal edema. SKIN: No rashes. NEURO: He is alert and oriented x3. No focal deficits. Labs from today: WBC 4.2, hemoglobin 9.4, platelets 76,000. BUN 30, creatinine 4.4. IMPRESSION: 1. Nausea, vomiting probably related to diabetic gastroparesis, which appears to be gradually improving, presently on IV Protonix 40 mg daily as well as Zofran as needed. 2. Incisional disease on hemodialysis. 3. Status post acute respiratory failure. The patient doing well. Pulmonary is following him closely. RECOMMENDATIONS: 1. Continue current medications. 2. Advance diet as tolerated. 3. Will follow him closely during his hospital stay.
[2016-10-18] MEDS: CALCIUM CARBONATE 500 MG CHEWABLE PO SCH ×2 (11:53→20:19)
[2016-10-18 12:22] LABS: Glucose,Whole Blood 136 mg/dL (75-99)
--- NOTE | 2016-10-18 15:20 | P.PN ---
Subjective Principal diagnosis: Acute hypoxic respiratory failure Patient is a 46-year-old male who presented to [facility] emergency room with multiple medical problems he was complaining of abdominal pain and vomiting he was noticed to have extremely elevated potassium level he missed several of his dialysis sessions he was started on hemodialysis in the intensive care unit his condition worsened and he started having mental status changes was unresponsiveness his O2 saturation was dropping patient required intubation and mechanical ventilation he was admitted to intensive care unit he was seen by pulmonary and critical care he improved significantly since yesterday and he was extubated today. Currently he is receiving oxygen via nasal cannula and he is tolerating well he is alert and oriented able to answer questions appropriately he admits to missing several of his dialysis sessions he denies taking any extra doses of his pain medications he is stating he is having abdominal pain and has difficulty with swallowing his food and his pills he was having episodes of vomiting prior to admission. Today patient continues to have nausea and abdominal pain, NG tube is out.otherwise he is stable and is scheduled to be transferred out of ICU today. Patient is requesting more medication for abdominal pain Objective - Vital Signs Vital signs: Vital Signs Temp 97.6 F 10/18/16 07:00 Pulse 75 10/18/16 07:00 Resp 20 10/18/16 07:00 BP 158/87 10/18/16 07:00 Pulse Ox 90 L 10/18/16 07:00 Intake & Output 10/17/16 10/18/16 10/18/16 18:59 06:59 18:59 Intake Total 800 1040 420 Output Total 450 600 600 Balance 350 440 -180 Weight 72.4 kg Intake: IV 160 120 D5W 160 120 Intake, IV Titration 100 100 Amount levETIRAcetam IV 750 mg 100 100 In Sodium Chloride 0.9% 100 ml @ 400 mls/hr IVPB Q12HR [facility] Rx#:[id number] Oral 540 1040 200 Output: Urine 450 600 600 Other: # Voids 1 0 # Bowel Movements 2 0 ABP, PAP, CO, CI - Last Documented Arterial Blood Pressure 123/55 - Exam HEENT head normocephalic and atraumatic Neck is supple no JVD no goiter no lymphadenopathy Chest exam reveals a few scattered rhonchi no wheezing Cardiac exam reveals regular heart sounds S1 and S2 no gallops no murmurs Abdomen is soft with epigastric tenderness no organomegaly with normal bowel sounds Extremity exam reveals no edema no cyanosis or clubbing - Labs CBC & Chem 7: 10/18/16 08:40 10/18/16 08:40 Labs: Abnormal Lab Results - Last 24 Hours (Table) 10/17/16 10/18/16 10/18/16 Range/Units 16:56 00:48 07:33 RBC (4.30-5.90) m/uL Hgb (13.0-17.5) gm/dL Hct (39.0-53.0) % MCHC (31.0-37.0) g/dL RDW (11.5-15.5) % Plt Count (150-450) k/uL Lymphocytes # (1.0-4.8) k/uL BUN (9-20) mg/dL Creatinine (0.66-1.25) mg/dL POC Glucose (mg/dL) 139 H 109 H 104 H (75-99) mg/dL Calcium (8.4-10.2) mg/dL Phosphorus (2.5-4.5) mg/dL Total Protein (6.3-8.2) g/dL Albumin (3.5-5.0) g/dL 10/18/16 10/18/16 10/18/16 Range/Units 08:40 08:40 12:17 RBC 3.26 L (4.30-5.90) m/uL Hgb 9.4 L (13.0-17.5) gm/dL Hct 30.8 L (39.0-53.0) % MCHC 30.5 L (31.0-37.0) g/dL RDW 17.6 H (11.5-15.5) % Plt Count 76 L (150-450) k/uL Lymphocytes # 0.7 L (1.0-4.8) k/uL BUN 30 H (9-20) mg/dL Creatinine 4.40 H (0.66-1.25) mg/dL POC Glucose (mg/dL) 136 H (75-99) mg/dL Calcium 6.6 L (8.4-10.2) mg/dL Phosphorus 5.9 H (2.5-4.5) mg/dL Total Protein 5.1 L (6.3-8.2) g/dL Albumin 2.4 L (3.5-5.0) g/dL Microbiology - Last 24 Hours (Table) 10/14/16 16:06 Blood Culture - Preliminary Blood No Growth after 72 hours Assessment and Plan Plan: #1 intractable nausea and vomiting, with abdominal pain at this time will check amylase and lipase Will consult gastroenterology will obtain abdominal ultrasound #2 severe hyperkalemia on admission corrected #3 mental status changes patient is unarousable possible narcotic overdose patient received Narcan in the ER currently he is alert and oriented 3 #4 end-stage renal disease on hemodialysis, patient admits to missing several of his dialysis sessions in the last month he was counseled in length in that regard #5 acute respiratory failure requiring intubation and mechanical ventilation, patient improved he was extubated this morning #6 chronic abdominal pain maintained on narcotics #7 history of pancreatic cancer #8 history of Clostridium difficile colitis in the past #9 previous history of gout #10 history of seizure disorder #11 underlying history of diabetes mellitus At this time patient is admitted to medical floor, he is alert and oriented, he is doing better possible discharge to home in the next few days, patient may need rehab prior to going home
[2016-10-18 17:13] LABS: Glucose,Whole Blood 116 mg/dL (75-99)
[2016-10-18 21:11] LABS: Glucose,Whole Blood 109 mg/dL (75-99)
[2016-10-19] MEDS: HYDROmorphone 2 MG/ML 1 ML SYRINGE IVP PRN ×8 (00:05→21:48)
[2016-10-19] MEDS: METOCLOPRAMIDE 5 MG/ML 2 ML VIAL IVP SCH ×4 (00:05→17:56)
[2016-10-19] MEDS: HEPARIN SODIUM,PORCINE 5,000 UNIT/ML 1 ML VIAL SQ SCH ×3 (00:05→13:38)
[2016-10-19 07:52] LABS: Glucose,Whole Blood 104 mg/dL (75-99)
[2016-10-19] MEDS ORDERED: HEPARIN SODIUM,PORCINE 5,000 UNIT/ML 1 ML VIAL ONE (08:00)
[2016-10-19] MEDS: CALCIUM CARBONATE 500 MG CHEWABLE PO SCH ×2 (08:17→21:49)
[2016-10-19] MEDS: LABETALOL 100 MG TAB PO SCH ×2 (08:17→21:49)
[2016-10-19] MEDS: PANTOPRAZOLE 40 MG/10 ML VIAL IVP SCH ×2 (08:17→21:49)
[2016-10-19] MEDS: CALCIUM ACETATE 667 MG CAP PO SCH ×3 (08:17→15:16)
[2016-10-19] MEDS: DEXTROSE 5% IN WATER 1,000 ML IV SCH (08:18)
[2016-10-19] MEDS: levETIRAcetam IV 750 MG in SODIUM CHLORIDE 0.9% 100 ML IVPB SCH ×2 (08:22→22:45)
--- NOTE | 2016-10-19 10:47 | CDI ---
In responding to this query, please exercise your independent professional judgment. The [facility] Coding Staff and Clinical Documentation Specialists appreciate your assistance in clarifying documentation, maintaining compliance with coding guidelines, accurately documenting patients condition and capturing severity of illness. The fact that a question is asked does not imply that any particular answer is desired or expected. Communication forms are a method of clarifying documentation and are not made part of the Legal Health Record. Thank you in advance for your clarification. Last Revision, November 2015 Mando Sampson [address] [facility] [place] [address] Documentation Clarification Form Date: 10/19/2016 10:09:00 AM From: Alysiazuleyka Gorman Admit Date: 10/14/2016 6:44:00 AM Patient Name: Senthil Sorto Visit Number: [id number] Discharge Date: Dr. Hans Stiles Altered mental status was documented in the H&P and progress notes. Mental status changes patient is unarousable possible narcotic overdose Patient history/risk factors: ESRD on HD, Seizure disorder, Hypertension, Diabetes mellitus Clinical Indicators: Present with complains of abdominal pain and vomiting was noted to have K+ 9.4. He missed several of his dialysis sessions.ER evaluation he was alert, appears intoxicated, mentation seems slowed, but was able to identify the date. He started having mental status changes and was unresponsive his O2 sat's dropped and required intubation. Labs: K+ 9.4, CR 117, CO2 8, BUN 120, CR 11.47, HGB 8.4, HCT 289.1, Ammonia 36, UA: leukocyte esterase Moderate, negative nitrate, Vital sign on admission: 94/58 61 16 94 % RA Chest x ray: 10/14/16 bilateral consolidation and pleural effusion correlate for CHF. 10/15/16; Improvement in bilateral pleural effusions, central vascular congestion and diffuse bilateral edema and/or infiltrates. EKG: sinus bradycardia@ 45 bpm and first degree AV block. Treatment: Narcan IV Kkayexalate PO, Sodium Bicarbonate IV Monitor Labs Neurovascular checks per protocol Hemodialysis per Nephrology orders In your professional opinion, please clarify the etiology of the altered mental status, if known. Encephalopathy (specify Type: Metabolic, Toxic, Other, and Underlying Medical Illness) Other condition (please specify) Unable to determine Delirium (specify cause): Dementia (if know, specify Type and if with/without Behavioral Disturbance) Please document in your progress notes and discharge summary in order to capture severity of illness and risk of mortality. Include clinical findings that support your diagnosis. FYI: Press F11 to launch patient chart. Place X here if this finding has no clinical significance, is not applicable or if you are not able to provide any additional documentation. PAMELAD
--- NOTE | 2016-10-19 11:11 | P.PN ---
Subjective Acute hypoxic respiratory failure Patient is a 46-year-old male who presented to [facility] emergency room with multiple medical problems he was complaining of abdominal pain and vomiting he was noticed to have extremely elevated potassium level he missed several of his dialysis sessions he was started on hemodialysis in the intensive care unit his condition worsened and he started having mental status changes was unresponsiveness his O2 saturation was dropping patient required intubation and mechanical ventilation he was admitted to intensive care unit he was seen by pulmonary and critical care he improved significantly since yesterday and he was extubated. 10/19/2016 patient transferred out of the ICU yesterday. Currently on a regular medical floor. Still complaining of abdominal pain. His oxygen saturation is around 89%. He denies any shortness of breath. And currently is refusing to wear oxygen. He is in no distress. Scheduled for hemodialysis today. Denies any chest pain or shortness breath. Denies any nausea or vomiting. Denies any bowel movement changes or urinary symptoms. Objective - Vital Signs Vital signs: Vital Signs Temp 97.3 F L 10/19/16 07:00 Pulse 75 10/19/16 07:00 Resp 20 10/19/16 07:00 BP 163/81 10/19/16 07:00 Pulse Ox 89 L 10/19/16 07:00 Intake & Output 10/18/16 10/19/16 10/19/16 18:59 06:59 18:59 Intake Total 420 Output Total 600 250 Balance -180 -250 Weight 70.5 kg Intake: IV 120 D5W 120 Intake, IV Titration 100 Amount levETIRAcetam IV 750 mg 100 In Sodium Chloride 0.9% 100 ml @ 400 mls/hr IVPB Q12HR [facility] Rx#:[id number] Oral 200 Output: Urine 600 250 Other: # Voids 1 ABP, PAP, CO, CI - Last Documented Arterial Blood Pressure 123/55 - Exam Head normocephalic Neck supple Lungs clear to auscultation bilaterally no wheezing or crackles Heart regular rate and rhythm S1-S2, no rub or gallop Abdomen is soft with diffuse tenderness Extremities no edema Neuro alert and orientated to 3 - Labs CBC & Chem 7: 10/18/16 08:40 10/18/16 08:40 Labs: Abnormal Lab Results - Last 24 Hours (Table) 10/18/16 10/18/16 10/18/16 Range/Units 12:17 17:08 20:51 POC Glucose (mg/dL) 136 H 116 H 109 H (75-99) mg/dL 10/19/16 Range/Units 07:51 POC Glucose (mg/dL) 104 H (75-99) mg/dL Microbiology - Last 24 Hours (Table) 10/14/16 16:06 Blood Culture - Preliminary Blood No Growth after 96 hours Assessment and Plan Plan: #1 intractable nausea and vomiting, with abdominal pain: Possibly related diabetic gastroparesis. Was evaluated by GI service. Continue with the Protonix and Zofran when necessary #2 severe hyperkalemia on admission corrected #3 acute toxic encephalopathy: Secondary to narcotic overdose. Patient did respond to Narcan in the ER #4 end-stage renal disease on hemodialysis, patient admits to missing several of his dialysis sessions in the last month he was counseled in length in that regard. Patient scheduled for hemodialysis today #5 acute hypoxic respiratory failure requiring intubation and mechanical ventilation secondary to pulmonary edema due to renal failure requiring hemodialysis. #6 chronic abdominal pain maintained on narcotics #7 history of pancreatic cancer #8 history of Clostridium difficile colitis in the past #9 previous history of gout #10 history of seizure disorder #11 underlying history of diabetes mellitus #12 anemia of chronic kidney disease Consult physical therapy. Social work evaluation for possible ECF at time of discharge
--- NOTE | 2016-10-19 11:27 | CDI ---
In responding to this query, please exercise your independent professional judgment. The [facility] Coding Staff and Clinical Documentation Specialists appreciate your assistance in clarifying documentation, maintaining compliance with coding guidelines, accurately documenting patients condition and capturing severity of illness. The fact that a question is asked does not imply that any particular answer is desired or expected. Communication forms are a method of clarifying documentation and are not made part of the Legal Health Record. Thank you in advance for your clarification. Last Revision, July 2015 Mando Sampson [address] [facility] [place] [address] Documentation Clarification Form Date: 10/19/2016 11:15:00 AM From: Alysia Sherif Admit Date: 10/16/2016 3:44:00 PM Patient Name: Paul Lakahni Visit Number: [id number] Discharge Date: Dr. Panchito Freeman Patient presents with a BUN28, CR/ 1.70 GFR of: 39 10/18/16 BUN 48, CR 2.20, GFR 29 History/Risk Factors: Chronic Atrial Fibrillation, Chronic systolic heart failure Diabetes mellitus, Hypertension, Hyperlipidemia, Renal disease, Skin CA Clinical Indicators: Presents with complaints of weakness, and cough. Treatment: Monitor Labs In order to capture the severity of condition, please clarify if the condition signifies: Acute renal failure Please specify (if known): Cortical, Medullary, or Tubular Necrosis? Acute kidney injury Acute on chronic renal failure Chronic renal failure, please stage Chronic kidney disease (CKD) and please stage Stage 1 GFR >90 Stage 2 GFR 60-89 Stage 3 GFR 30-59 Stage 4 GFR 15-29 Stage 5 GFR <15 ESRD Unable to determine Other, specify Please document in your progress notes and discharge summary in order to capture severity of illness and risk of mortality. Include clinical findings that support your diagnosis. FYI: Press F11 to launch patient chart. Place X here if this finding has no clinical significance, is not applicable or if you are not able to provide any additional documentation. PAMELAD
[2016-10-19 12:27] LABS: Glucose,Whole Blood 110 mg/dL (75-99)
[2016-10-19 15:18] LABS: Anisocytosis Slight; Basophils % (A) 0 %; CH 29.5; Eosinophils # (A) 0.1 k/uL (0-0.7); Eosinophils % (A) 2 %; HCT 27.4 % (39.0-53.0); HGB 8.6 gm/dL (13.0-17.5); Hypochromasia Marked; Luc # (Auto) 0.14; Luc % (Auto) 4; Lymphocytes # (A) 0.7 k/uL (1.0-4.8); Lymphocytes % (A) 20 %; MCHC 31.3 g/dL (31.0-37.0); MCV 95.8 fL (80.0-100.0); Macrocytosis Slight; Mean Platelet Volume 8.8; Monocytes # (A) 0.3 k/uL (0-1.0); Monocytes % (A) 9 %; Neutrophils # (A) 2.1 k/uL (1.3-7.7); Neutrophils % (A) 65 %; RBC 2.86 m/uL (4.30-5.90); RDW 17.3 % (11.5-15.5); WBC 3.3 k/uL (3.8-10.6); WBC (Perox) 3.43
[2016-10-19 15:31] LABS: Calcium 6.8 mg/dL (8.4-10.2); Magnesium 1.8 mg/dL (1.6-2.3); Phosphorous 5.9 mg/dL (2.5-4.5); Total Bilirubin 0.4 mg/dL (0.2-1.3)
[2016-10-19 17:08] LABS: Glucose,Whole Blood 116 mg/dL (75-99)
[2016-10-19 20:46] LABS: Glucose,Whole Blood 100 mg/dL (75-99)
[2016-10-19] MEDS: hydrALAZINE HCL 20 MG/ML 1 ML VIAL IVP PRN (21:49)
[2016-10-20] MEDS: HYDROmorphone 2 MG/ML 1 ML SYRINGE IVP PRN ×7 (00:54→20:35)
[2016-10-20] MEDS: METOCLOPRAMIDE 5 MG/ML 2 ML VIAL IVP SCH ×4 (00:55→17:24)
[2016-10-20] MEDS: HEPARIN SODIUM,PORCINE 5,000 UNIT/ML 1 ML VIAL SQ SCH ×3 (00:55→16:43)
[2016-10-20 06:59] LABS: Glucose,Whole Blood 155 mg/dL (75-99)
[2016-10-20] MEDS: CALCIUM CARBONATE 500 MG CHEWABLE PO SCH ×2 (08:24→20:35)
[2016-10-20] MEDS: DEXTROSE 5% IN WATER 1,000 ML IV SCH (08:25)
[2016-10-20] MEDS: LABETALOL 100 MG TAB PO SCH ×2 (08:25→20:36)
[2016-10-20] MEDS: PANTOPRAZOLE 40 MG/10 ML VIAL IVP SCH ×2 (08:25→20:36)
[2016-10-20] MEDS: levETIRAcetam IV 750 MG in SODIUM CHLORIDE 0.9% 100 ML IVPB SCH ×2 (08:25→20:35)
[2016-10-20] MEDS: CALCIUM ACETATE 667 MG CAP PO SCH ×3 (08:25→17:24)
[2016-10-20 11:19] VITALS: BMI 18.0
[2016-10-20 12:07] LABS: Glucose,Whole Blood 148 mg/dL (75-99)
[2016-10-20 17:21] LABS: Glucose,Whole Blood 157 mg/dL (75-99)
--- NOTE | 2016-10-20 17:59 | P.PN ---
Subjective Principal diagnosis: Acute hypoxic respiratory failure Patient is a 46-year-old male who presented to [facility] emergency room with multiple medical problems he was complaining of abdominal pain and vomiting he was noticed to have extremely elevated potassium level he missed several of his dialysis sessions he was started on hemodialysis in the intensive care unit his condition worsened and he started having mental status changes was unresponsiveness his O2 saturation was dropping patient required intubation and mechanical ventilation he was admitted to intensive care unit he was seen by pulmonary and critical care he improved significantly since yesterday and he was extubated today. Currently he is receiving oxygen via nasal cannula and he is tolerating well he is alert and oriented able to answer questions appropriately he admits to missing several of his dialysis sessions he denies taking any extra doses of his pain medications he is stating he is having abdominal pain and has difficulty with swallowing his food and his pills he was having episodes of vomiting prior to admission. Today patient continues to have nausea and abdominal pain, NG tube is out.otherwise he is stable and is scheduled to be transferred out of ICU today. Patient is requesting more medication for abdominal pain Objective - Vital Signs Vital signs: Vital Signs Temp 98.2 F 10/20/16 15:00 Pulse 77 10/20/16 15:00 Resp 19 10/20/16 15:00 BP 182/90 10/20/16 15:00 Pulse Ox 94 L 10/20/16 15:00 Intake & Output 10/19/16 10/20/16 10/20/16 18:59 06:59 18:59 Intake Total 400 Output Total 400 Balance 400 -400 Weight 57 kg 57 kg Intake: Oral 400 Output: Urine 400 Other: # Voids 3 ABP, PAP, CO, CI - Last Documented Arterial Blood Pressure 123/55 - Exam HEENT head normocephalic and atraumatic Neck is supple no JVD no goiter no lymphadenopathy Chest exam reveals a few scattered rhonchi no wheezing Cardiac exam reveals regular heart sounds S1 and S2 no gallops no murmurs Abdomen is soft with epigastric tenderness no organomegaly with normal bowel sounds Extremity exam reveals no edema no cyanosis or clubbing - Labs CBC & Chem 7: 10/19/16 15:10 10/19/16 15:10 Labs: Abnormal Lab Results - Last 24 Hours (Table) 02/13/17 02/14/17 02/14/17 Range/Units 20:43 06:57 12:06 POC Glucose (mg/dL) 100 H 155 H 148 H (75-99) mg/dL 10/20/16 Range/Units 17:17 POC Glucose (mg/dL) 157 H (75-99) mg/dL Microbiology - Last 24 Hours (Table) 10/14/16 16:06 Blood Culture - Preliminary Blood No Growth after 120 hours Assessment and Plan Plan: #1 intractable nausea and vomiting, and abdominal pain improved significantly. Patient has chronic abdominal pain he is maintained on long-term narcotic in that regard #2 severe hyperkalemia on admission corrected. Patient is receiving hemodialysis. #3 mental status changes patient is unarousable possible narcotic overdose patient received Narcan in the ER currently he is alert and oriented 3 #4 end-stage renal disease on hemodialysis, patient admits to missing several of his dialysis sessions in the last month he was counseled in length in that regard #5 acute respiratory failure requiring intubation and mechanical ventilation, patient improved he was extubated and transferred to medical floor he is tolerating well #6 chronic abdominal pain maintained on narcotics #7 history of pancreatic cancer #8 history of Clostridium difficile colitis in the past #9 previous history of gout #10 history of seizure disorder #11 underlying history of diabetes mellitus #12 for DVT prophylaxis patient was maintained on subcu heparin however he has been refusing his injections he was counseled in length in regards to dangers of pulmonary embolism Will switch to Lovenox once daily patient is willing to use Lovenox At this time patient is admitted to medical floor, he is alert and oriented, he is doing better possible discharge to home in the next few days, patient may need rehab prior to going home
[2016-10-20] MEDS: ENOXAPARIN 40 MG/0.4 ML SYRINGE SQ SCH (18:11)
[2016-10-20] MEDS: hydrALAZINE HCL 20 MG/ML 1 ML VIAL IVP PRN (19:03)
--- NOTE | 2016-10-20 21:01 | PN ---
Patient is seen for followup for end-stage renal disease. He was admitted to the hospital with severe hyperkalemia, volume overload and noncompliance. Patient is currently sitting up in bed and eating. He denies any shortness of breath. On examination, blood pressure is 130/66, heart rate 80 per minute. He is afebrile. EXAMINATION OF THE HEART: S1 and S2. EXAMINATION OF THE LUNGS: Bilateral breath sounds are heard. ABDOMEN: Soft, nontender. Examination of the lower extremities shows edema 2+ bilaterally. Labs show hemoglobin 8.6, sodium 139; potassium 5.0 yesterday. ASSESSMENT: 1. End-stage renal disease, on hemodialysis on a Wednesday, Wednesday, Wednesday schedule. 2. Severe hyperkalemia on admission, currently resolved. 3. Severe anemia, status post packed RBC transfusion. No active bleeding noted. 4. Volume overload. Will increase ultrafiltration with hemodialysis in a.m. 5. Status post ventilator-dependent respiratory failure. 6. History of Clostridium difficile colitis. PLAN: Hemodialysis in a.m. Increase UF as tolerated. Blood pressure will hopefully tolerate about 3 to 4 liters tomorrow.
[2016-10-20 21:08] LABS: Glucose,Whole Blood 137 mg/dL (75-99)
[2016-10-21] MEDS: METOCLOPRAMIDE 5 MG/ML 2 ML VIAL IVP SCH ×4 (01:05→17:06)
[2016-10-21] MEDS: HYDROmorphone 2 MG/ML 1 ML SYRINGE IVP PRN ×5 (01:05→17:06)
[2016-10-21] MEDS: hydrALAZINE HCL 20 MG/ML 1 ML VIAL IVP PRN ×2 (01:23→06:02)
[2016-10-21 06:12] LABS: Anisocytosis Slight; Basophils % (A) 0 %; CH 29.2; CHCM 30.7; Eosinophils # (A) 0.1 k/uL (0-0.7); Eosinophils % (A) 4 %; HCT 28.4 % (39.0-53.0); HDW 3.46; HGB 8.8 gm/dL (13.0-17.5); Hypochromasia Marked; Luc # (Auto) 0.13; Luc % (Auto) 3; Lymphocytes # (A) 0.9 k/uL (1.0-4.8); Lymphocytes % (A) 21 %; MCH 29.8 pg (25.0-35.0); MCHC 31.1 g/dL (31.0-37.0); MCV 96.1 fL (80.0-100.0); Macrocytosis Slight; Mean Platelet Volume 8.3; Monocytes # (A) 0.2 k/uL (0-1.0); Monocytes % (A) 6 %; Neutrophils # (A) 2.7 k/uL (1.3-7.7); Neutrophils % (A) 66 %; Poikilocytosis Slight; RBC 2.96 m/uL (4.30-5.90); RDW 17.3 % (11.5-15.5); WBC 4.1 k/uL (3.8-10.6); WBC (Perox) 4.02
[2016-10-21 06:28] LABS: Calcium 6.9 mg/dL (8.4-10.2); Potassium 5.3 mmol/L (3.5-5.1); Total Bilirubin 0.3 mg/dL (0.2-1.3); Total Protein 4.9 g/dL (6.3-8.2)
[2016-10-21 07:38] LABS: Glucose,Whole Blood 147 mg/dL (75-99)
[2016-10-21] MEDS: CALCIUM CARBONATE 500 MG CHEWABLE PO SCH (08:07)
[2016-10-21] MEDS: PANTOPRAZOLE 40 MG/10 ML VIAL IVP SCH (08:07)
[2016-10-21] MEDS: DEXTROSE 5% IN WATER 1,000 ML IV SCH (08:08)
[2016-10-21] MEDS: CALCIUM ACETATE 667 MG CAP PO SCH ×3 (08:08→17:06)
[2016-10-21] MEDS: LABETALOL 100 MG TAB PO SCH (08:08)
[2016-10-21] MEDS: levETIRAcetam IV 750 MG in SODIUM CHLORIDE 0.9% 100 ML IVPB SCH (08:08)
[2016-10-21] MEDS: ENOXAPARIN 40 MG/0.4 ML SYRINGE SQ SCH (08:09)
[2016-10-21 10:19] VITALS: RESP 16
[2016-10-21 11:35] LABS: Glucose,Whole Blood 164 mg/dL (75-99)
--- NOTE | 2016-10-21 14:00 | P.DS ---
Providers Date of admission: 10/14/16 06:44 Expected date of discharge: 10/21/16 Attending physician: Hans Stiles Consults: 10/14/16 10:55 Consult Physician Stat Consulting Provider: Martha Packer Reason/Comments: SOB Do you want consulting provider notified?: Yes [facility] Course: Diagnosis on discharge #1 intractable nausea and vomiting on admission resolved #2 severe hyperkalemia on admission corrected #3 end-stage renal disease on hemodialysis #4 acute respiratory failure requiring intubation and mechanical ventilation #5 chronic abdominal pain maintained on narcotic #6 history of pancreatic cancer #7 previous history of close treat him deficit colitis in the past #8 history of seizure disorder #9 history of gout #10 underlying history of diabetes mellitus Patient is a 46-year-old male who presented to [facility] emergency room with altered mental status, he had severely elevated potassium level requiring emergency hemodialysis which was started in emergency room, patient was unconscious which required intubation and admission to intensive care unit he was continued on mechanical ventilation for 24 hours then he was able to extubate successfully. Patient has known history of end-stage renal disease on hemodialysis, has known history of chronic abdominal pain maintained on narcotics. Patient improved gradually he was transferred to medical floor. Patient missed several dialysis session prior to admission which caused his severe hyperkalemia, he was counseled in length during this admission in regard to having dialysis on a regular basis. He will be transferred to a fci at the time of discharge. Patient Condition at Discharge: Critical Plan - Discharge Summary Discharge Medication List Insulin Detemir [Levemir Flextouch] 5 units SQ HS #0 02/04/16 [Rx] Folic Acid-Vit B Complex-Vit C [Nephrocaps] 1 cap PO DAILY 05/12/16 [History] Labetalol [Trandate] 100 mg PO BID 05/12/16 [History] Cyclobenzaprine [Flexeril] 10 mg PO TID PRN 08/01/16 [History] INSULIN LISPRO (humaLOG) [humaLOG (formulary)] 10 units SQ W/SUPPER 08/01/16 [ History] Oxymorphone HCl [Oxymorphone HCl ER] 60 mg PO DAILY 08/01/16 [History] levETIRAcetam [Keppra] 750 mg PO Q12HR 11/26/16 [History] oxyCODONE HCL 10 mg PO BID 08/01/16 [History] Albuterol Nebulized [Ventolin Nebulized] 2.5 mg INHALATION RT-QID PRN #0 nebu [Rx] Pantoprazole [Protonix] 40 mg PO AC-BRKFST #30 tablet.dr 08/02/16 [Rx] Calcium Acetate [PhosLo] 667 mg PO TID-W/MEALS cap 10/21/16 [Rx] Calcium Carbonate [Tums] 1,000 mg PO BID chew 10/21/16 [Rx] Darbepoetin Sher [Aranesp] 40 mcg SQ Q7D syringe 10/21/16 [Rx] Labetalol [Trandate] 100 mg PO BID tab 10/21/16 [Rx] Follow up Appointment(s)/Referral(s): Airam Burkett MD [Primary Care Provider] - 1 Week Patient Instructions/Handouts: Type 2 Diabetes in Adults (DC)
[2016-10-21 15:28] VITALS: BP 184/82; PULSE 77; TEMP 96.9
[2016-10-21 17:38] LABS: Glucose,Whole Blood 125 mg/dL (75-99)
[2016-10-21] MEDS ORDERED: HEPARIN SODIUM,PORCINE 5,000 UNIT/ML 1 ML VIAL ONE (18:00)
--- NOTE | 2016-10-21 21:40 | PN ---
Patient is seen for followup for end-stage renal disease. He is currently seen for followup. He is comfortable. He has been eating well. On examination, blood pressure is high, about 139/70, heart rate 84 per minute. He is afebrile. EXAMINATION OF THE HEART: S1 and S2. EXAMINATION OF THE LUNGS: Bilateral breath sounds are heard. ABDOMEN: Soft, nontender. Examination of the lower extremities shows edema 2+ bilaterally. CHIEF OPERATING OFFICER exam is grossly intact. Labs show potassium 5.3. Hemoglobin 8.8 g/dL. ASSESSMENT: 1. End-stage renal disease, on hemodialysis on a Wednesday, Wednesday, Wednesday schedule. Patient is scheduled for hemodialysis today. 2. Volume overload. Increase ultrafiltration as tolerated today. Blood pressure is running on the high side. 3. Severe hyperkalemia on initial admission with a potassium of 9, currently resolved. 4. Noncompliance with dialysis. 5. Status post ventilator-dependent respiratory failure. PLAN: Hemodialysis today. Increase UF as tolerated. If patient is still here, we will arrange for another short treatment tomorrow for volume overload.
[2016-10-22] MEDS ORDERED: ENOXAPARIN 30 MG/0.3 ML SYRINGE SQ SCH (09:00)
== END 2016-10-21 19:43 | disposition home health service (06) | DRG 208 ==
LOC: EC 05:11 → EEVIPCON 05:11 → 6ICU 06:44 → 4MS4W 10-16 15:32
PROVIDERS: ADMIT Internal Medicine; ATTEND Internal Medicine
PROC: 0BH17EZ Insertion of Endotracheal Airway into Trachea, Via Natural or Artificial Opening (ICD-10-PCS; principal; 2016-10-14)
PROC: 5A1935Z Respiratory Ventilation, Less than 24 Consecutive Hours (ICD-10-PCS; principal; 2016-10-14)
PROC: 5A1D60Z (ICD-10-PCS; 2016-10-14)
DX: J96.01 Acute respiratory failure with hypoxia (principal); I46.9 Cardiac arrest, cause unspecified; G92 Toxic encephalopathy; Z99.11 Dependence on respirator [ventilator] status; K31.84 Gastroparesis; N18.6 End stage renal disease; I12.0 Hypertensive chronic kidney disease with stage 5 chronic kidney disease or end stage renal disease; E11.40 Type 2 diabetes mellitus with diabetic neuropathy, unspecified; E87.2 Acidosis; J81.1 Chronic pulmonary edema; E87.5 Hyperkalemia; E11.21 Type 2 diabetes mellitus with diabetic nephropathy; E87.70 Fluid overload, unspecified; G89.29 Other chronic pain; T50.905A Adverse effect of unspecified drugs, medicaments and biological substances, initial encounter; G40.909 Epilepsy, unspecified, not intractable, without status epilepticus; E11.43 Type 2 diabetes mellitus with diabetic autonomic (poly)neuropathy; E11.319 Type 2 diabetes mellitus with unspecified diabetic retinopathy without macular edema; F41.9 Anxiety disorder, unspecified; F32.9 Major depressive disorder, single episode, unspecified; E83.89 Other disorders of mineral metabolism; D63.1 Anemia in chronic kidney disease; K21.9 Gastro-esophageal reflux disease without esophagitis; M10.9 Gout, unspecified; E78.5 Hyperlipidemia, unspecified; G47.30 Sleep apnea, unspecified; K58.9 Irritable bowel syndrome, unspecified; M19.90 Unspecified osteoarthritis, unspecified site; T40.601A Poisoning by unspecified narcotics, accidental (unintentional), initial encounter; Z99.2 Dependence on renal dialysis; Z91.15 Patient's noncompliance with renal dialysis; Z79.4 Long term (current) use of insulin; Z79.891 Long term (current) use of opiate analgesic; Z79.899 Other long term (current) drug therapy; Z86.14 Personal history of Methicillin resistant Staphylococcus aureus infection; Z85.07 Personal history of malignant neoplasm of pancreas; Z90.5 Acquired absence of kidney; Z80.1 Family history of malignant neoplasm of trachea, bronchus and lung; Z80.8 Family history of malignant neoplasm of other organs or systems; Z80.0 Family history of malignant neoplasm of digestive organs; Z86.19 Personal history of other infectious and parasitic diseases
CPT/HCPCS: 31500; 36415; 36600; 71010; 74000; 76700; 80048; 80053; 81001; 82140; 82150; 82805; 83605; 83690; 83735; 84100; 84484; 85025; 85027; 86704; 86706; 86850; 86900; 86901; 86920; 87040; 87070; 87086; 87205; 87340; 90935; 93005; 94002; 94003; 94640; 94760; 96365; 96366; 96367; 96375; 96376; 99144; 99291

== ENCOUNTER 2016-11-13 21:10 | Inpatient (IN) | payer MEDICARE, OTHER ==
[2016-11-13] MEDS ORDERED: MORPHINE SULFATE 4 MG/ML SYRINGE IV STA (21:29)
[2016-11-13] MEDS ORDERED: SODIUM CHLORIDE 0.9% 1,000 ML IV STA ×2 (21:29→23:15)
[2016-11-13] MEDS ORDERED: IV VANCOMYCIN PER PHARMACY 1 EACH MISC MISCELLANE PRN (21:30)
[2016-11-13] MEDS ORDERED: hydrALAZINE HCL 20 MG/ML 1 ML VIAL IVP STA (21:32)
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
[2016-11-13] MEDS ORDERED: VANCOMYCIN 1,250 MG in SODIUM CHLORIDE 0.9% 250 ML IVPB ONE (22:00)
[2016-11-13 22:42] LABS: Basophils % (A) 0 %; CH 28.9; CHCM 30.7; Eosinophils # (A) 0.1 k/uL (0-0.7); Eosinophils % (A) 1 %; HCT 29.4 % (39.0-53.0); HGB 9.1 gm/dL (13.0-17.5); Hypochromasia Moderate; Luc # (Auto) 0.13; Luc % (Auto) 1; Lymphocytes # (A) 0.7 k/uL (1.0-4.8); Lymphocytes % (A) 6 %; MCH 29.3 pg (25.0-35.0); MCV 94.6 fL (80.0-100.0); Mean Platelet Volume 8.1; Monocytes # (A) 0.5 k/uL (0-1.0); Monocytes % (A) 4 %; Neutrophils # (A) 11.1 k/uL (1.3-7.7); Neutrophils % (A) 88 %; RBC 3.11 m/uL (4.30-5.90); RDW 14.9 % (11.5-15.5); WBC 12.6 k/uL (3.8-10.6); WBC (Perox) 13.47
[2016-11-13] MEDS ORDERED: PIPERACILLIN-TAZOBACTAM 3.375 GM in DEXTROSE/WATER 1 50ML.BAG IVPB STA (22:53)
[2016-11-13 22:57] LABS: INR 1.1 (<1.1); Partial Thromboplastin Time 32.6 sec (22.0-30.0); Prothrombin Time 10.9 sec (9.0-12.0)
[2016-11-13 23:02] LABS: Magnesium 2.4 mg/dL (1.6-2.3); Total Bilirubin 0.4 mg/dL (0.2-1.3); Total Protein 5.7 g/dL (6.3-8.2)
--- NOTE | 2016-11-13 23:08 | XR ---
EXAMINATION TYPE: XR chest 2V DATE OF EXAM: 11/13/2016 10:52 PM COMPARISON: 10/17/2016 HISTORY: Chest pain TECHNIQUE: Frontal and lateral views of the chest are obtained. FINDINGS: There is pulmonary vascular congestion. There is blunting of both costophrenic angles and more on the left side. There is a left-sided central venous catheter with tip in the right atrium. Th ere is no pneumothorax. There is right central venous catheter with tip in the superior vena cava. IMPRESSION: Congestive heart failure with bilateral pleural effusions. There is some improvement com pared to last exam. Bilateral lower lobe pulmonary infiltrates. There is decreased pleural fluid comp ared to old exam.
[2016-11-13 23:10] LABS: Creatine Kinase 142 U/L (55-170)
--- NOTE | 2016-11-13 23:10 | XR ---
EXAMINATION TYPE: XR sacrum coccyx DATE OF EXAM: 11/13/2016 10:52 PM COMPARISON: None HISTORY: Fell on the stairs TECHNIQUE: 3 views FINDINGS: Segments have normal alignment. I see no fracture. Sacroiliac joints appear normal. IMPRESSION: Negative sacrum and coccyx exam.
[2016-11-13 23:13] LABS: Potassium 7.1 mmol/L (3.5-5.1)
[2016-11-13] MEDS ORDERED: SODIUM POLYSTYRENE SULFONATE 15 GM/60 ML BOTTLE PO STA (23:13)
[2016-11-13] MEDS ORDERED: DEXTROSE 50%-WATER 50 ML SYRINGE IVP STA (23:13)
[2016-11-13] MEDS ORDERED: INSULIN REGULAR 100 UNIT/ML VIAL IV ONE (23:13)
[2016-11-13 23:23] LABS: Troponin I <0.012 ng/mL (0.000-0.034)
[2016-11-13 23:30] LABS: Creatine Kinase MB 11.5 ng/mL (0.0-2.4)
[2016-11-14 00:56] LABS: Glucose,Whole Blood 85 mg/dL (75-99)
[2016-11-14] MEDS: MORPHINE SULFATE 4 MG/ML SYRINGE IVP PRN ×4 (00:59→15:41)
[2016-11-14 01:28] VITALS: BMI 22.9
[2016-11-14] MEDS: hydrALAZINE HCL 20 MG/ML 1 ML VIAL IVP PRN ×2 (02:07→15:24)
[2016-11-14 04:38] LABS: CH 28.7; HCT 29.7 % (39.0-53.0); HDW 2.74; HGB 8.9 gm/dL (13.0-17.5); Hypochromasia Marked; MCH 28.8 pg (25.0-35.0); MCHC 30.1 g/dL (31.0-37.0); MCV 95.8 fL (80.0-100.0); Mean Platelet Volume 7.4; RBC 3.09 m/uL (4.30-5.90); RDW 14.8 % (11.5-15.5); WBC 13.1 k/uL (3.8-10.6)
[2016-11-14 05:31] LABS: Calcium 7.6 mg/dL (8.4-10.2); Magnesium 2.4 mg/dL (1.6-2.3)
[2016-11-14 05:43] LABS: Potassium 6.6 mmol/L (3.5-5.1)
[2016-11-14 05:56] LABS: Phosphorous 10.9 mg/dL (2.5-4.5)
[2016-11-14] MEDS: PIPERACILLIN-TAZOBACTAM 3.375 GM in DEXTROSE/WATER 1 50ML.BAG IVPB SCH ×2 (10:01→21:46)
--- NOTE | 2016-11-14 11:13 | CONS ---
DATE OF CONSULTATION: REASON FOR CONSULTATION: End-stage renal disease. HISTORY OF PRESENT ILLNESS: Patient is a 46-year-old white male with a history of end-stage renal disease on hemodialysis with a strong history of noncompliance. He was admitted to the hospital with a history of fall. He had been weak. Apparently he has a rectal abscess has been complaining of pain. He did not come for his dialysis treatments as outpatient since October 29, 2016. Currently patient is admitted to the ICU as his potassium was 7.1 mEq/L on initial admission. No fevers. No significant nausea or vomiting. PAST MEDICAL HISTORY: End-stage renal disease, hypertension, diabetes, gastroesophageal reflux disease, seizure disorder, sleep apnea, osteoarthritis, history of MRSA infection. 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 Medications prior to admission included Protonix, PhosLo, Tums, Aranesp, Trandate, Percocet, insulin. ALLERGIES: None. REVIEW OF SYSTEMS: As per HPI. Other systems negative. On examination, the patient is currently lying in bed. He is comfortable. He is not in any acute distress. Blood pressure is 175/74, heart rate 81 per minute. He is afebrile. EXAMINATION OF THE HEART: S1 and S2. EXAMINATION OF THE LUNGS: Bilateral breath sounds are heard. ABDOMEN: Soft, nontender. Examination of lower extremities shows no evidence of edema. NATIONAL ACCOUNT MANAGER exam shows patient is moving all 4 extremities. I did not examine his rectal area. Labs show sodium 143, potassium 6.6, BUN 79. Hemoglobin 8.9 g/dL. Phosphorus was elevated at 10.9. ASSESSMENT: 1. End-stage renal disease on hemodialysis with strong history of noncompliance, last time patient was at the dialysis unit outpatient was on October 29. 2. Severe hyperkalemia secondary to noncompliance with dialysis. 3. Perirectal abscess. 4. Severe hyperphosphatemia. Will maintain patient on his home phosphate binders. 5. Anemia of chronic disease. 6. Generalized debility. PLAN: Continue antibiotics. Hemodialysis today. Encourage increase oral intake. Start PhosLo. Repeat labs in the a.m. Thank you for this consultation. Will continue to follow the patient with you during his hospitalization.
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
[2016-11-14] MEDS: PANTOPRAZOLE 40 MG/10 ML VIAL IVP SCH (13:07)
[2016-11-14 13:27] LABS: Cholesterol 149 mg/dL (<200); HDL Cholesterol 31 mg/dL (40-60); Triglycerides 242 mg/dL (<150)
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
[2016-11-14] MEDS ORDERED: HEPARIN SODIUM,PORCINE 5,000 UNIT/ML 1 ML VIAL ONE (15:30)
[2016-11-14] MEDS: CALCIUM ACETATE 667 MG CAP PO SCH ×2 (15:42→17:24)
[2016-11-14 16:25] LABS: Basophils % (A) 0 %; CH 29.4; CHCM 31.1; Eosinophils # (A) 0.2 k/uL (0-0.7); Eosinophils % (A) 2 %; HCT 30.6 % (39.0-53.0); HDW 2.82; HGB 9.3 gm/dL (13.0-17.5); Hypochromasia Slight; Luc % (Auto) 1; Lymphocytes # (A) 0.6 k/uL (1.0-4.8); Lymphocytes % (A) 5 %; MCH 29.1 pg (25.0-35.0); MCHC 30.6 g/dL (31.0-37.0); Mean Platelet Volume 7.7; Monocytes # (A) 0.4 k/uL (0-1.0); Monocytes % (A) 3 %; Neutrophils # (A) 11.4 k/uL (1.3-7.7); Neutrophils % (A) 89 %; RBC 3.22 m/uL (4.30-5.90); RDW 14.8 % (11.5-15.5); WBC 12.8 k/uL (3.8-10.6); WBC (Perox) 13.01
[2016-11-14 16:38] LABS: Calcium 7.7 mg/dL (8.4-10.2); Magnesium 1.9 mg/dL (1.6-2.3); Phosphorous 4.5 mg/dL (2.5-4.5); Potassium 4.3 mmol/L (3.5-5.1)
[2016-11-14] MEDS: HYDROmorphone 2 MG/ML 1 ML SYRINGE IVP PRN ×2 (18:08→21:46)
[2016-11-14] MEDS ORDERED: VANCOMYCIN 1,000 MG in SODIUM CHLORIDE 0.9% 250 ML IVPB ONE (21:00)
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
[2016-11-14] MEDS: amLODIPine 5 MG TAB PO SCH (21:46)
[2016-11-14] MEDS: LABETALOL 200 MG TAB PO SCH (22:03)
[2016-11-15] MEDS: HYDROmorphone 2 MG/ML 1 ML SYRINGE IVP PRN ×7 (00:27→21:41)
[2016-11-15] MEDS: PANTOPRAZOLE 40 MG/10 ML VIAL IVP SCH (07:31)
[2016-11-15] MEDS: LABETALOL 200 MG TAB PO SCH ×2 (07:31→21:41)
[2016-11-15] MEDS: amLODIPine 5 MG TAB PO SCH ×2 (07:31→21:41)
[2016-11-15] MEDS ORDERED: ONDANSETRON 4 MG/2 ML VIAL IVP ONE (08:49)
[2016-11-15] MEDS ORDERED: LIDOCAINE 1% INJ 10MG/ML (20 ML MDV) ONE (08:57)
[2016-11-15] MEDS ORDERED: IV FLUID CONTINUATION 1,000 ML IV ONE (08:57)
[2016-11-15] MEDS ORDERED: PROPOFOL 10 MG/ML 20 ML VIAL IV ONE (08:57)
[2016-11-15] MEDS ORDERED: SODIUM CHLORIDE 0.9% 100 ML with ceFAZolin 2,000 MG IV ONE ×2 (08:57)
[2016-11-15] MEDS ORDERED: fentaNYL (PF) 50 MCG/ML 2 ML AMP ONE (08:57)
[2016-11-15] MEDS ORDERED: MIDAZOLAM 2 MG/2 ML VIAL ONE (08:57)
--- NOTE | 2016-11-15 09:31 | P.PCN ---
Date of Procedure: 11/15/16 Procedure(s) Performed: PREOPERATIVE DIAGNOSIS: Sacral abscess POSTOPERATIVE DIAGNOSIS: Same PROCEDURE: Incision drainage and debridement SURGEON: Rhys EBL: Minimal ANESTHESIA: General COMPLICATIONS: None OPERATIVE PROCEDURE: Patient is placed in the operating table in the left decubitus position after general anesthesia was achieved. The abscess over the lower sacrum was present just to the right of midline. There was a portion of skin that was developing a central wound and this was excised using an elliptical incision. I entered into a subcutaneous abscess cavity. This tract caudally to the perirectal location. This incision was lengthened in that direction. Cultures were taken. The area was debrided using both sharp dissection and the curet down to and including the level of the muscular layer. This was an excisional debridement. The wound was then irrigated with saline. The wound was then packed with a Betadine moistened Kerlix roll. A sterile dressings applied. DISPOSITION: Stable to recovery room
[2016-11-15] MEDS: HYDROmorphone 1 MG/ML 1 ML SYRINGE IVP ONE ×4 (09:45→10:05)
[2016-11-15 10:00] LABS: Glucose,Whole Blood 112 mg/dL (75-99)
[2016-11-15] MEDS: PIPERACILLIN-TAZOBACTAM 3.375 GM in DEXTROSE/WATER 1 50ML.BAG IVPB SCH ×2 (11:54→21:41)
[2016-11-15] MEDS: CALCIUM ACETATE 667 MG CAP PO SCH ×3 (11:57→17:59)
--- NOTE | 2016-11-15 13:29 | P.PN ---
Subjective Principal diagnosis: Infected sacral ulcer Patient is complaining of severe pain in the sacral area, he underwent debridement of his sacral ulcers today He denies any other complaints at this time He received hemodialysis yesterday Objective - Vital Signs Vital signs: Vital Signs Temp 98.1 F 11/15/16 09:43 Pulse 77 11/15/16 10:15 Resp 16 11/15/16 10:15 BP 137/70 11/15/16 10:15 Pulse Ox 99 11/15/16 10:15 Intake & Output 11/14/16 11/15/16 11/15/16 17:59 06:59 18:59 Intake Total 210 Output Total 10 Balance 200 Intake: IV 210 Piperacillin-Tazobactam 3 .375 gm In Dextrose/Water 1 50ml.bag @ 12.5 mls/hr IVPB ONCE STA Rx#: [id number] Sodium Chloride 0.9% 1, 000 ml @ 100 mls/hr IV . Q10H STA Rx#:[id number] Intake, IV Titration Amount Vancomycin 1,000 mg In Sodium Chloride 0.9% 250 ml @ 125 mls/hr IVPB ONCE ONE Rx#:[id number] Oral Output: Urine Estimated Blood Loss 10 Other Other: Voiding Method Urinal # Voids - Exam In general patient is alert and oriented 3 in no apparent distress HEENT head normocephalic and nontraumatic Neck is supple no JVD no goiter no lymphadenopathy Chest is clear to auscultation no wheezing Cardiac exam reveals regular heart sounds no gallops no murmurs Abdomen is soft nontender no organomegaly Extremity exam reveals no edema no cyanosis or clubbing - Labs CBC & Chem 7: 11/14/16 16:17 11/14/16 16:17 Labs: Abnormal Lab Results - Last 24 Hours (Table) 11/14/16 11/14/16 11/14/16 Range/Units 04:15 16:17 16:17 WBC 12.8 H (3.8-10.6) k/uL RBC 3.22 L (4.30-5.90) m/uL Hgb 9.3 L (13.0-17.5) gm/dL Hct 30.6 L (39.0-53.0) % MCHC 30.6 L (31.0-37.0) g/dL Plt Count 127 L (150-450) k/uL Neutrophils # 11.4 H (1.3-7.7) k/uL Lymphocytes # 0.6 L (1.0-4.8) k/uL BUN 29 H (9-20) mg/dL Creatinine 3.74 H (0.66-1.25) mg/dL POC Glucose (mg/dL) (75-99) mg/dL Calcium 7.7 L (8.4-10.2) mg/dL Triglycerides 242 H (<150) mg/dL HDL Cholesterol 31 L (40-60) mg/dL 11/15/16 Range/Units 09:51 WBC (3.8-10.6) k/uL RBC (4.30-5.90) m/uL Hgb (13.0-17.5) gm/dL Hct (39.0-53.0) % MCHC (31.0-37.0) g/dL Plt Count (150-450) k/uL Neutrophils # (1.3-7.7) k/uL Lymphocytes # (1.0-4.8) k/uL BUN (9-20) mg/dL Creatinine (0.66-1.25) mg/dL POC Glucose (mg/dL) 112 H (75-99) mg/dL Calcium (8.4-10.2) mg/dL Triglycerides (<150) mg/dL HDL Cholesterol (40-60) mg/dL Microbiology - Last 24 Hours (Table) 11/14/16 01:00 Gram Stain - Preliminary Buttock Wound Culture - Preliminary Presumptive MRSA Gram Neg Bacilli 11/14/16 02:00 Anaerobic Culture - Preliminary Buttock Assessment and Plan Plan: #1 end-stage renal disease on hemodialysis, patient missed several hemodialysis sessions #2 large sacral ulcer with abscess, patient underwent debridement today #3 severe hyperkalemia on presentation #4 anemia of chronic disease and chronic kidney disease #5 generalized debility #6 underlying history of seizure disorder #7 previous history of pancreatic cancer #8 mild protein calorie malnutrition At this time continue was current IV antibiotic, patient pain is not well controlled increase Dilaudid to 1.5 mg every 3 hours when necessary Will follow closely
[2016-11-15 16:59] LABS: CH 29.3; CHCM 30.6; HDW 2.86; HGB 8.3 gm/dL (13.0-17.5); Hypochromasia Moderate; MCH 29.6 pg (25.0-35.0); MCHC 30.7 g/dL (31.0-37.0); MCV 96.2 fL (80.0-100.0); RBC 2.81 m/uL (4.30-5.90); RDW 15.1 % (11.5-15.5); WBC 11.7 k/uL (3.8-10.6)
--- NOTE | 2016-11-15 17:39 | P.PN ---
Subjective Principal diagnosis: Sacral wound 46-year-old male who has a history of end-stage renal disease on hemodialysis who regretfully does miss sessions of hemodialysis. Presents the emergency room with complaints of significant pain and drainage to his sacrum. Patient states he suffered a fall before with an uncharacterized timeframe. He has developed increasing amounts of pain. Been out of his pain pills. Has not been going to hemodialysis. And has had a significant increase of drainage from the sacrum. This become much more difficult to sit and consequently because he became so ill he presented to the emergency center for further intervention. Upon presentation he has evidence of uremia. His potassium was elevated. He received semiurgent hemodialysis. This patient is been seen by surgery with plans for surgical drainage of the pressure ulceration of the sacral area. He has had the incision and drainage of the sacral ulceration. It has been packed. He is definitely more comfortable today. Much more cooperative and pleasant Objective - Vital Signs Vital signs: Vital Signs Temp 97 F L 11/15/16 10:45 Pulse 76 11/15/16 12:45 Resp 16 11/15/16 10:45 BP 106/52 11/15/16 12:45 Pulse Ox 95 11/15/16 10:45 Intake & Output 11/14/16 11/15/16 11/15/16 17:59 06:59 18:59 Intake Total 210 Output Total 10 Balance 200 Intake: IV 210 Piperacillin-Tazobactam 3 .375 gm In Dextrose/Water 1 50ml.bag @ 12.5 mls/hr IVPB ONCE STA Rx#: [id number] Sodium Chloride 0.9% 1, 000 ml @ 100 mls/hr IV . Q10H STA Rx#:[id number] Intake, IV Titration Amount Vancomycin 1,000 mg In Sodium Chloride 0.9% 250 ml @ 125 mls/hr IVPB ONCE ONE Rx#:[id number] Oral Output: Urine Estimated Blood Loss 10 Other Other: Voiding Method Urinal # Voids - Exam 46-year-old malewho appears chronically ill. Has lost severe amount of weight since his last evaluation. Appears cachectic, significant hypertension HEENT: Anicteric conjunctiva are pink and moist nasal mucosa grossly intact without significant lesions, there is no thrush.mucosa is dry without lesions dentition i Neck: The neck is supple without significant lymphadenopathy or thyromegaly. Lungs: Good bilateral air entry without significant crackles or wheezing. There is no significant bronchial sounds. There is no egophony or dullness. Heart: Regular rate and rhythm with an audible S1-S2, no S3 no S4. There is no significant murmur click or rub, PMI was nondisplaced. Abdomen: Positive bowel sounds soft and nontender without palpable masses or organomegaly. There was no guarding or rebound. Extremities: upper extremities without acute changes. Lower extremity with muscular wasting The sacral areaIs evaluated. Dressing is in place for the incision and drainage. Not removed. Neuro: Awake alert oriented to person place and time. Feels better and more cooperative today. - Labs CBC & Chem 7: 11/15/16 16:42 11/14/16 16:17 Labs: Abnormal Lab Results - Last 24 Hours (Table) 11/14/16 11/15/16 11/15/16 Range/Units 16:17 09:51 16:42 WBC 11.7 H (3.8-10.6) k/uL RBC 2.81 L (4.30-5.90) m/uL Hgb 8.3 L (13.0-17.5) gm/dL Hct 27.0 L (39.0-53.0) % MCHC 30.7 L (31.0-37.0) g/dL Plt Count 114 L (150-450) k/uL BUN 29 H (9-20) mg/dL Creatinine 3.74 H (0.66-1.25) mg/dL POC Glucose (mg/dL) 112 H (75-99) mg/dL Calcium 7.7 L (8.4-10.2) mg/dL Microbiology - Last 24 Hours (Table) 11/14/16 01:00 Gram Stain - Preliminary Buttock Wound Culture - Preliminary Presumptive MRSA Gram Neg Bacilli Laboratory Results WBC 11.7 k/uL (3.8-10.6) H 11/15/16 16:42 RBC 2.81 m/uL (4.30-5.90) L 11/15/16 16:42 Hgb 8.3 gm/dL (13.0-17.5) L 11/15/16 16:42 Hct 27.0 % (39.0-53.0) L 11/15/16 16:42 MCV 96.2 fL (80.0-100.0) 11/15/16 16:42 MCH 29.6 pg (25.0-35.0) 11/15/16 16:42 MCHC 30.7 g/dL (31.0-37.0) L 11/15/16 16:42 RDW 15.1 % (11.5-15.5) 11/15/16 16:42 Plt Count 114 k/uL (150-450) L 11/15/16 16:42 Neutrophils % 89 % 11/14/16 16:17 Lymphocytes % 5 % 11/14/16 16:17 Monocytes % 3 % 11/14/16 16:17 Eosinophils % 2 % 11/14/16 16:17 Basophils % 0 % 11/14/16 16:17 Neutrophils # 11.4 k/uL (1.3-7.7) H 11/14/16 16:17 Lymphocytes # 0.6 k/uL (1.0-4.8) L 11/14/16 16:17 Monocytes # 0.4 k/uL (0-1.0) 11/14/16 16:17 Eosinophils # 0.2 k/uL (0-0.7) 11/14/16 16:17 Basophils # 0.0 k/uL (0-0.2) 11/14/16 16:17 Hypochromasia Moderate 11/15/16 16:42 PT 10.9 sec (9.0-12.0) 11/13/16 22:30 INR 1.1 (<1.1) 11/13/16 22:30 APTT 32.6 sec (22.0-30.0) H 11/13/16 22:30 Sodium 139 mmol/L (137-145) 11/14/16 16:17 Potassium 4.3 mmol/L (3.5-5.1) 11/14/16 16:17 Chloride 104 mmol/L (98-107) 11/14/16 16:17 Carbon Dioxide 23 mmol/L (22-30) 11/14/16 16:17 Anion Gap 12 mmol/L 11/14/16 16:17 BUN 29 mg/dL (9-20) H 11/14/16 16:17 Creatinine 3.74 mg/dL (0.66-1.25) H 11/14/16 16:17 Est GFR (MDRD) Af Amer 21 (>60 ml/min/1.73 sqM) 11/14/16 16:17 Est GFR (MDRD) Non-Af 18 (>60 ml/min/1.73 sqM) 11/14/16 16:17 Glucose 87 mg/dL (74-99) 11/14/16 16:17 POC Glucose (mg/dL) 112 mg/dL (75-99) H 11/15/16 09:51 POC Glu Nursing Scheduler ID Sarah Verma 11/15/16 09:51 Plasma Lactic Acid Liam 0.7 mmol/L (0.7-2.0) 11/13/16 22:30 Calcium 7.7 mg/dL (8.4-10.2) L 11/14/16 16:17 Phosphorus 4.5 mg/dL (2.5-4.5) 11/14/16 16:17 Magnesium 1.9 mg/dL (1.6-2.3) 11/14/16 16:17 Total Bilirubin 0.4 mg/dL (0.2-1.3) 11/13/16 22:30 AST 16 U/L (17-59) L 11/13/16 22:30 ALT 25 U/L (21-72) 11/13/16 22:30 Alkaline Phosphatase 78 U/L (38-126) 11/13/16 22:30 Total Creatine Kinase 142 U/L (55-170) 11/13/16 22:30 CK-MB (CK-2) 11.5 ng/mL (0.0-2.4) H* 11/13/16 22:30 CK-MB (CK-2) Rel Index 8.1 11/13/16 22:30 Troponin I <0.012 ng/mL (0.000-0.034) 11/13/16 22:30 Total Protein 5.7 g/dL (6.3-8.2) L 11/13/16 22:30 Albumin 2.8 g/dL (3.5-5.0) L 11/13/16 22:30 Triglycerides 242 mg/dL (<150) H 11/14/16 04:15 Cholesterol 149 mg/dL (<200) 11/14/16 04:15 LDL Cholesterol, Calc 70 mg/dL (0-99) 11/14/16 04:15 HDL Cholesterol 31 mg/dL (40-60) L 11/14/16 04:15 Microbiology 11/14/16 01:00 Buttock Gram Stain - Preliminary 11/14/16 01:00 Buttock Wound Culture - Preliminary Presumptive MRSA Gram Neg Bacilli 11/13/16 22:30 Blood Blood Culture - Preliminary No Growth after 24 hours 11/14/16 02:00 Buttock Anaerobic Culture - Preliminary Assessment and Plan (1) Abscess of sacrum Narrative/Plan: 46-year-old male who has end-stage renal disease on hemodialysis easily difficulties with compliance. Presents with significant hyperkalemia is receiving hemodialysis this time. Goal is to improve his volume status and potassium soda may have surgery tomorrow. He is a surgical incision and drainage from the abscess to his sacrum which he is finding very painful. Pain control is slightly better at this point in time. He however is uncooperative and miserable. Local wound care is with a absorptive dressing and a tape free set up pants to observe the drainage. He has especially mattress Surgery is following leukocytosis is being monitored antibiotic therapy with Zosyn and Vancomycin is being utilized. 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 He has been free of this as far as we are able to know for a time period. Will not initiate antibiotic therapy for this unless we have further cultures that are positive. 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 For these pathogens the piperacillin tazobactam and vancomycin should be adequate. He will monitored antibiotics adjusted as indicated. Incision and drainage performed.leukocytosis just improved. Will ask for an air mattress. Status: Acute (2) End stage renal disease Status: Acute (3) Cachexia Status: Acute (4) Acute hyperkalemia Status: Acute
[2016-11-15 17:42] LABS: Anion Gap 11 mmol/L; Blood Urea Nitrogen 36 mg/dL (9-20); Calcium 7.5 mg/dL (8.4-10.2); Carbon Dioxide 22 mmol/L (22-30); Chloride 106 mmol/L (98-107); Glucose 124 mg/dL (74-99); Potassium 5.4 mmol/L (3.5-5.1); Sodium 139 mmol/L (137-145)
[2016-11-15 17:51] LABS: Non-African American GFR(MDRD) 12 (>60 ml/min/1.73 sqM)
[2016-11-15 18:12] LABS: Hepatitis B Surface Ag Index 0.08
[2016-11-15 18:32] LABS: Hepatitis B Surface Antibody Negative (Negative)
[2016-11-16] MEDS: HYDROmorphone 2 MG/ML 1 ML SYRINGE IVP PRN ×7 (01:24→21:34)
[2016-11-16 07:15] LABS: Glucose,Whole Blood 90 mg/dL (75-99)
[2016-11-16 07:23] LABS: CH 29.1; CHCM 30.4; HDW 2.86; Hypochromasia Moderate; MCH 28.5 pg (25.0-35.0); MCHC 29.7 g/dL (31.0-37.0); MCV 95.9 fL (80.0-100.0); Mean Platelet Volume 8.4; RBC 2.82 m/uL (4.30-5.90); RDW 14.9 % (11.5-15.5); WBC 9.2 k/uL (3.8-10.6)
[2016-11-16 07:33] LABS: Calcium 7.4 mg/dL (8.4-10.2); Magnesium 2.2 mg/dL (1.6-2.3); Potassium 5.2 mmol/L (3.5-5.1)
[2016-11-16] MEDS: LABETALOL 200 MG TAB PO SCH ×2 (09:32→21:33)
[2016-11-16] MEDS: CALCIUM ACETATE 667 MG CAP PO SCH ×3 (09:32→18:24)
[2016-11-16] MEDS: amLODIPine 5 MG TAB PO SCH ×2 (09:32→21:33)
[2016-11-16] MEDS: PIPERACILLIN-TAZOBACTAM 3.375 GM in DEXTROSE/WATER 1 50ML.BAG IVPB SCH ×2 (09:32→21:33)
[2016-11-16] MEDS: PANTOPRAZOLE 40 MG/10 ML VIAL IVP SCH (09:32)
[2016-11-16 10:40] LABS: Hemoglobin A1C 5.4 % (4.2-6.1)
[2016-11-16 12:14] LABS: Glucose,Whole Blood 90 mg/dL (75-99)
[2016-11-16] MEDS ORDERED: ALBUTEROL NEBULIZED 2.5 MG/3 ML INHALATION PRN (13:26)
[2016-11-16] MEDS ORDERED: CYCLOBENZAPRINE 10 MG TAB PO PRN (13:26)
--- NOTE | 2016-11-16 13:26 | P.PN ---
Subjective Sacral abscess status post debridement Patient had debridement of his sacral abscess yesterday. Still complaining of some pain. Patient followed by infectious disease and surgical service. Maintained on IV Zosyn and vancomycin. White count has normalized at 9.2. Patient is scheduled for hemodialysis today. He denies any chest pain or shortness of breath. Denies a nausea vomiting. He reports having bowel movements and making urine. Objective - Vital Signs Vital signs: Vital Signs Temp 98.1 F 11/16/16 02:31 Pulse 73 11/16/16 02:31 Resp 16 11/16/16 02:31 BP 144/71 11/16/16 02:31 Pulse Ox 91 L 11/16/16 02:31 Intake & Output 11/15/16 11/16/16 11/16/16 18:59 06:59 18:59 Intake Total 790 200 Output Total 310 Balance 480 200 Intake: IV 210 Intake, IV Titration 100 Amount Sodium Chloride 0.9% 100 100 ml As IV .STK-MED ONE with ceFAZolin 2,000 mg Rx#:[id number] Oral 480 200 Output: Urine 300 Estimated Blood Loss 10 Other: Voiding Method Urinal Urinal Urinal # Bowel Movements 1 - Exam Head normocephalic Neck supple Lungs clear to auscultation bilaterally no wheezing or crackles Heart regular rate and rhythm S1-S2, no rub or gallop Abdomen is soft nontender nondistended positive bowel sounds no hepatosplenomegaly Extremities no edema Neuro alert and orientated to 3 Buttocks: Dressing clean dry and intact - Labs CBC & Chem 7: 11/16/16 07:00 11/16/16 07:00 Labs: Abnormal Lab Results - Last 24 Hours (Table) 11/15/16 11/15/16 11/16/16 Range/Units 16:42 16:42 07:00 WBC 11.7 H (3.8-10.6) k/uL RBC 2.81 L 2.82 L (4.30-5.90) m/uL Hgb 8.3 L 8.0 L (13.0-17.5) gm/dL Hct 27.0 L 27.0 L (39.0-53.0) % MCHC 30.7 L 29.7 L (31.0-37.0) g/dL Plt Count 114 L 116 L (150-450) k/uL Potassium 5.4 H (3.5-5.1) mmol/L BUN 36 H (9-20) mg/dL Creatinine 5.15 H* (0.66-1.25) mg/dL Glucose 124 H (74-99) mg/dL Calcium 7.5 L (8.4-10.2) mg/dL Phosphorus 7.0 H (2.5-4.5) mg/dL 11/16/16 Range/Units 07:00 WBC (3.8-10.6) k/uL RBC (4.30-5.90) m/uL Hgb (13.0-17.5) gm/dL Hct (39.0-53.0) % MCHC (31.0-37.0) g/dL Plt Count (150-450) k/uL Potassium 5.2 H (3.5-5.1) mmol/L BUN 39 H (9-20) mg/dL Creatinine 5.70 H* (0.66-1.25) mg/dL Glucose (74-99) mg/dL Calcium 7.4 L (8.4-10.2) mg/dL Phosphorus 7.0 H (2.5-4.5) mg/dL Microbiology - Last 24 Hours (Table) 11/14/16 01:00 Gram Stain - Final Buttock Wound Culture - Preliminary Methicillin resist S. aureus Klebsiella oxytoca Citrobacter braakii 11/15/16 09:40 Gram Stain - Preliminary Buttock Wound Culture - Preliminary 11/15/16 09:40 Anaerobic Culture - Preliminary Buttock Assessment and Plan Plan: #1 end-stage renal disease on hemodialysis, patient missed several hemodialysis sessions. Scheduled for hemodialysis today #2 large sacral ulcer with abscess, patient underwent debridement yesterday. Wound culture growing presumptive MRSA and gram-negative bacilli. Continue Zosyn and vancomycin. Awaiting wound culture finalized #3 severe hyperkalemia on presentation #4 anemia of chronic disease and chronic kidney disease #5 generalized debility #6 underlying history of seizure disorder #7 previous history of pancreatic cancer #8 mild protein calorie malnutrition #9 hyperkalemia potassium 5.2 undergoing hemodialysis. Repeat labs in a.m.
[2016-11-16] MEDS ORDERED: DARBEPOETIN ALFA 40 MCG/0.4 ML SYRINGE SQ SCH (13:30)
[2016-11-16] MEDS ORDERED: HEPARIN SODIUM,PORCINE 5,000 UNIT/ML 1 ML VIAL ONE (15:00)
--- NOTE | 2016-11-16 15:36 | P.PN ---
Subjective Principal diagnosis: sacral abscess patient doing better today. His pain is somewhat less. No fevers. White blood cell count 9.2. Culture showing multiple bacteria including MRSA. Objective - Vital Signs Vital signs: Vital Signs Temp 98.0 F 11/16/16 15:00 Pulse 71 11/16/16 15:00 Resp 16 11/16/16 15:00 BP 155/76 11/16/16 15:00 Pulse Ox 95 11/16/16 15:00 Intake & Output 11/15/16 11/16/16 11/16/16 18:59 06:59 18:59 Intake Total 790 200 Output Total 310 Balance 480 200 Intake: IV 210 Intake, IV Titration 100 Amount Sodium Chloride 0.9% 100 100 ml As IV .STK-MED ONE with ceFAZolin 2,000 mg Rx#:[id number] Oral 480 200 Output: Urine 300 Estimated Blood Loss 10 Other: Voiding Method Urinal Urinal Urinal # Voids 2 # Bowel Movements 1 - Exam abscess site with decreased erythema, decreased tenderness, scant drainage - Labs CBC & Chem 7: 11/16/16 07:00 11/16/16 07:00 Labs: Abnormal Lab Results - Last 24 Hours (Table) 11/15/16 11/15/16 11/16/16 Range/Units 16:42 16:42 07:00 WBC 11.7 H (3.8-10.6) k/uL RBC 2.81 L 2.82 L (4.30-5.90) m/uL Hgb 8.3 L 8.0 L (13.0-17.5) gm/dL Hct 27.0 L 27.0 L (39.0-53.0) % MCHC 30.7 L 29.7 L (31.0-37.0) g/dL Plt Count 114 L 116 L (150-450) k/uL Potassium 5.4 H (3.5-5.1) mmol/L BUN 36 H (9-20) mg/dL Creatinine 5.15 H* (0.66-1.25) mg/dL Glucose 124 H (74-99) mg/dL Calcium 7.5 L (8.4-10.2) mg/dL Phosphorus 7.0 H (2.5-4.5) mg/dL 11/16/16 Range/Units 07:00 WBC (3.8-10.6) k/uL RBC (4.30-5.90) m/uL Hgb (13.0-17.5) gm/dL Hct (39.0-53.0) % MCHC (31.0-37.0) g/dL Plt Count (150-450) k/uL Potassium 5.2 H (3.5-5.1) mmol/L BUN 39 H (9-20) mg/dL Creatinine 5.70 H* (0.66-1.25) mg/dL Glucose (74-99) mg/dL Calcium 7.4 L (8.4-10.2) mg/dL Phosphorus 7.0 H (2.5-4.5) mg/dL Microbiology - Last 24 Hours (Table) 11/14/16 02:00 Anaerobic Culture - Preliminary Buttock Yeast species 11/14/16 01:00 Gram Stain - Final Buttock Wound Culture - Final Methicillin resist S. aureus Klebsiella oxytoca Citrobacter braakii 11/15/16 09:40 Gram Stain - Preliminary Buttock Wound Culture - Preliminary 11/15/16 09:40 Anaerobic Culture - Preliminary Buttock Assessment and Plan (1) Abscess of sacrum Narrative/Plan: continue antibiotics. Follow cultures. Continue local wound care. Status: Acute
[2016-11-16 16:51] LABS: Glucose,Whole Blood 111 mg/dL (75-99)
--- NOTE | 2016-11-16 19:23 | PN ---
Patient is seen for followup for end-stage renal disease. He was admitted to the hospital with a fall and he was found to have a perirectal abscess. He has been evaluated by Surgery; currently to be continued with local wound care and antibiotics. On examination, blood pressure is 144/71, heart rate 73 per minute. He is afebrile. EXAMINATION OF THE HEART: S1 and S2. EXAMINATION OF LUNGS: Good air entry bilaterally. ABDOMEN: Soft, nontender. Examination of lower extremities shows no significant edema. Labs show sodium of 141, potassium 5.2. Hemoglobin 8.0 g/dL. ASSESSMENT: 1. End-stage renal disease, on hemodialysis on a Wednesday, Wednesday, Wednesday schedule. 2. Chronic kidney disease mineral bone disorder, maintained on PhosLo. 3. Anemia of chronic disease with no active bleeding, maintained on Aranesp. 4. Strong history of noncompliance. Last dialysis was on 10/29/2016 prior to this admission. 5. Abscess in the sacral region, maintained on IV antibiotics, being followed by Surgery.
--- NOTE | 2016-11-16 20:46 | P.PN ---
Subjective Principal diagnosis: Sacral wound 46-year-old male who has a history of end-stage renal disease on hemodialysis who regretfully does miss sessions of hemodialysis. Presents the emergency room with complaints of significant pain and drainage to his sacrum. Patient states he suffered a fall before with an uncharacterized timeframe. He has developed increasing amounts of pain. Been out of his pain pills. Has not been going to hemodialysis. And has had a significant increase of drainage from the sacrum. This become much more difficult to sit and consequently because he became so ill he presented to the emergency center for further intervention. Upon presentation he has evidence of uremia. His potassium was elevated. He received semiurgent hemodialysis. This patient is been seen by surgery with plans for surgical drainage of the pressure ulceration of the sacral area. He has had the incision and drainage of the sacral ulceration. It has been packed. He is definitely more comfortable today. Much more cooperative and pleasant Objective - Vital Signs Vital signs: Vital Signs Temp 98.0 F 11/16/16 15:00 Pulse 71 11/16/16 15:00 Resp 16 11/16/16 15:00 BP 155/76 11/16/16 15:00 Pulse Ox 95 11/16/16 15:00 Intake & Output 11/16/16 11/16/16 11/17/16 06:59 18:59 06:59 Intake Total 200 Balance 200 Intake: Oral 200 Other: Voiding Method Urinal Urinal # Voids 2 # Bowel Movements 1 - Exam 46-year-old malewho appears chronically ill. Has lost severe amount of weight since his last evaluation. Appears cachectic, hypertension on dialysis HEENT: Anicteric conjunctiva are pink and moist nasal mucosa grossly intact without significant lesions, there is no thrush.mucosa is dry without lesions dentition i Neck: The neck is supple without significant lymphadenopathy or thyromegaly. Lungs: Good bilateral air entry without significant crackles or wheezing. There is no significant bronchial sounds. There is no egophony or dullness. Heart: Regular rate and rhythm with an audible S1-S2, no S3 no S4. There is no significant murmur click or rub, PMI was nondisplaced. Abdomen: Positive bowel sounds soft and nontender without palpable masses or organomegaly. There was no guarding or rebound. Extremities: upper extremities without acute changes. Lower extremity with muscular wasting The sacral areaIs evaluated. Dressing is in place for the incision and drainage. Not removed. Neuro: Awake alert oriented to person place and time. Feels better and more cooperative today. - Labs CBC & Chem 7: 11/16/16 07:00 11/16/16 07:00 Labs: Abnormal Lab Results - Last 24 Hours (Table) 11/16/16 11/16/16 11/16/16 Range/Units 07:00 07:00 16:35 RBC 2.82 L (4.30-5.90) m/uL Hgb 8.0 L (13.0-17.5) gm/dL Hct 27.0 L (39.0-53.0) % MCHC 29.7 L (31.0-37.0) g/dL Plt Count 116 L (150-450) k/uL Potassium 5.2 H (3.5-5.1) mmol/L BUN 39 H (9-20) mg/dL Creatinine 5.70 H* (0.66-1.25) mg/dL POC Glucose (mg/dL) 111 H (75-99) mg/dL Calcium 7.4 L (8.4-10.2) mg/dL Phosphorus 7.0 H (2.5-4.5) mg/dL Microbiology - Last 24 Hours (Table) 11/14/16 02:00 Anaerobic Culture - Preliminary Buttock Yeast species 11/14/16 01:00 Gram Stain - Final Buttock Wound Culture - Final Methicillin resist S. aureus Klebsiella oxytoca Citrobacter braakii 11/15/16 09:40 Gram Stain - Preliminary Buttock Wound Culture - Preliminary 11/15/16 09:40 Anaerobic Culture - Preliminary Buttock Laboratory Results WBC 9.2 k/uL (3.8-10.6) 11/16/16 07:00 RBC 2.82 m/uL (4.30-5.90) L 11/16/16 07:00 Hgb 8.0 gm/dL (13.0-17.5) L 11/16/16 07:00 Hct 27.0 % (39.0-53.0) L 11/16/16 07:00 MCV 95.9 fL (80.0-100.0) 11/16/16 07:00 MCH 28.5 pg (25.0-35.0) 11/16/16 07:00 MCHC 29.7 g/dL (31.0-37.0) L 11/16/16 07:00 RDW 14.9 % (11.5-15.5) 11/16/16 07:00 Plt Count 116 k/uL (150-450) L 11/16/16 07:00 Neutrophils % 89 % 11/14/16 16:17 Lymphocytes % 5 % 11/14/16 16:17 Monocytes % 3 % 11/14/16 16:17 Eosinophils % 2 % 11/14/16 16:17 Basophils % 0 % 11/14/16 16:17 Neutrophils # 11.4 k/uL (1.3-7.7) H 11/14/16 16:17 Lymphocytes # 0.6 k/uL (1.0-4.8) L 11/14/16 16:17 Monocytes # 0.4 k/uL (0-1.0) 11/14/16 16:17 Eosinophils # 0.2 k/uL (0-0.7) 11/14/16 16:17 Basophils # 0.0 k/uL (0-0.2) 11/14/16 16:17 Hypochromasia Moderate 11/16/16 07:00 PT 10.9 sec (9.0-12.0) 11/13/16 22:30 INR 1.1 (<1.1) 11/13/16 22:30 APTT 32.6 sec (22.0-30.0) H 11/13/16 22:30 Sodium 141 mmol/L (137-145) 11/16/16 07:00 Potassium 5.2 mmol/L (3.5-5.1) H 11/16/16 07:00 Chloride 107 mmol/L (98-107) 11/16/16 07:00 Carbon Dioxide 22 mmol/L (22-30) 11/16/16 07:00 Anion Gap 12 mmol/L 11/16/16 07:00 BUN 39 mg/dL (9-20) H 11/16/16 07:00 Creatinine 5.70 mg/dL (0.66-1.25) H* 11/16/16 07:00 Est GFR (MDRD) Af Amer 13 (>60 ml/min/1.73 sqM) 11/16/16 07:00 Est GFR (MDRD) Non-Af 11 (>60 ml/min/1.73 sqM) 11/16/16 07:00 Glucose 97 mg/dL (74-99) 11/16/16 07:00 POC Glucose (mg/dL) 111 mg/dL (75-99) H 11/16/16 16:35 POC Glu Steam Room Attendant Hawa Briscoe 11/16/16 16:[address] Glu mg/dL 108 mg/dL 11/15/16 16:42 Hemoglobin A1c 5.4 % (4.2-6.1) 11/15/16 16:42 Plasma Lactic Acid Liam 0.7 mmol/L (0.7-2.0) 11/13/16 22:30 Calcium 7.4 mg/dL (8.4-10.2) L 11/16/16 07:00 Phosphorus 7.0 mg/dL (2.5-4.5) H 11/16/16 07:00 Magnesium 2.2 mg/dL (1.6-2.3) 11/16/16 07:00 Total Bilirubin 0.4 mg/dL (0.2-1.3) 11/13/16 22:30 AST 16 U/L (17-59) L 11/13/16 22:30 ALT 25 U/L (21-72) 11/13/16 22:30 Alkaline Phosphatase 78 U/L (38-126) 11/13/16 22:30 Total Creatine Kinase 142 U/L (55-170) 11/13/16 22:30 CK-MB (CK-2) 11.5 ng/mL (0.0-2.4) H* 11/13/16 22:30 CK-MB (CK-2) Rel Index 8.1 11/13/16 22:30 Troponin I <0.012 ng/mL (0.000-0.034) 11/13/16 22:30 Total Protein 5.7 g/dL (6.3-8.2) L 11/13/16 22:30 Albumin 2.8 g/dL (3.5-5.0) L 11/13/16 22:30 Triglycerides 242 mg/dL (<150) H 11/14/16 04:15 Cholesterol 149 mg/dL (<200) 11/14/16 04:15 LDL Cholesterol, Calc 70 mg/dL (0-99) 11/14/16 04:15 HDL Cholesterol 31 mg/dL (40-60) L 11/14/16 04:15 Random Vancomycin 20.4 ug/mL 11/16/16 07:00 Hep Bs Antigen Negative 11/15/16 16:42 Hep Bs Antibody Negative (Negative) 11/15/16 16:42 Microbiology 11/14/16 02:00 Buttock Anaerobic Culture - Preliminary Yeast species 11/14/16 01:00 Buttock Gram Stain - Final 11/14/16 01:00 Buttock Wound Culture - Final Methicillin resist S. aureus Klebsiella oxytoca Citrobacter braakii 11/15/16 09:40 Buttock Gram Stain - Preliminary 11/15/16 09:40 Buttock Wound Culture - Preliminary 11/13/16 22:30 Blood Blood Culture - Preliminary No Growth after 48 hours 11/15/16 09:40 Buttock Anaerobic Culture - Preliminary Assessment and Plan (1) Abscess of sacrum Narrative/Plan: 46-year-old male who has end-stage renal disease on hemodialysis easily difficulties with compliance. Presents with significant hyperkalemia is receiving hemodialysis this time. Goal is to improve his volume status and potassium soda may have surgery tomorrow. He is a surgical incision and drainage from the abscess to his sacrum which he is finding very painful. Pain control is slightly better at this point in time. He however is uncooperative and miserable. Local wound care is with a absorptive dressing and a tape free set up pants to observe the drainage. He has especially mattress Surgery is following leukocytosis is being monitored antibiotic therapy with Zosyn and Vancomycin is being utilized. 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 He has been free of this as far as we are able to know for a time period. 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 MRSA, Klesiella, Citrobacter For these pathogens the piperacillin tazobactam and vancomycin should be adequate. antibiotics adjusted as indicated. Incision and drainage performed.leukocytosis improved. Will ask for an air mattress. Status: Acute (2) End stage renal disease Status: Acute (3) Cachexia Status: Acute (4) Acute hyperkalemia Status: Acute
[2016-11-16 20:47] LABS: Glucose,Whole Blood 194 mg/dL (75-99)
[2016-11-16] MEDS: ALPRAZolam 0.5 MG TAB PO PRN (21:33)
[2016-11-17] MEDS: HYDROmorphone 2 MG/ML 1 ML SYRINGE IVP PRN ×7 (00:36→20:28)
[2016-11-17] MEDS ORDERED: VANCOMYCIN 1,000 MG in SODIUM CHLORIDE 0.9% 250 ML IVPB ONE (01:00)
[2016-11-17 07:08] LABS: Basophils % (A) 0 %; CH 28.9; Eosinophils # (A) 0.4 k/uL (0-0.7); Eosinophils % (A) 5 %; HCT 26.9 % (39.0-53.0); HDW 2.98; HGB 8.3 gm/dL (13.0-17.5); Hypochromasia Moderate; Luc # (Auto) 0.09; Luc % (Auto) 1; Lymphocytes # (A) 1.2 k/uL (1.0-4.8); Lymphocytes % (A) 16 %; MCH 28.7 pg (25.0-35.0); MCHC 30.7 g/dL (31.0-37.0); MCV 93.6 fL (80.0-100.0); Mean Platelet Volume 8.6; Monocytes # (A) 0.3 k/uL (0-1.0); Monocytes % (A) 4 %; Neutrophils # (A) 5.2 k/uL (1.3-7.7); Neutrophils % (A) 73 %; RBC 2.88 m/uL (4.30-5.90); RDW 14.8 % (11.5-15.5); WBC 7.1 k/uL (3.8-10.6); WBC (Perox) 7.31
[2016-11-17 07:35] LABS: Calcium 7.4 mg/dL (8.4-10.2); Potassium 4.6 mmol/L (3.5-5.1); Total Bilirubin 0.4 mg/dL (0.2-1.3); Total Protein 5.3 g/dL (6.3-8.2)
[2016-11-17 08:03] LABS: Glucose,Whole Blood 106 mg/dL (75-99)
--- NOTE | 2016-11-17 08:50 | ECHOF ---
Referral Reason: MEASUREMENTS -------- HEIGHT: 177.8 cm WEIGHT: 72.6 kg BP: 144/71 RVIDd: 2.7 cm (< 3.3) IVSd: 1.0 cm (0.6 - 1.1) LVIDd: 4.3 cm (3.9 - 5.3) LVPWd: 1.0 cm (0.6 - 1.1) IVSs: 1.5 cm LVIDs: 2.8 cm LVPWs: 1.7 cm LA Diam: 3.3 cm (2.7 - 3.8) LAESV Index (A-L): 37.00 ml/m Ao Diam: 3.4 cm (2.0 - 3.7) AV Cusp: 2.2 cm (1.5 - 2.6) LA Diam: 3.3 cm (2.7 - 3.8) MV EXCURSION: 18.221 mm (> 18.000) MV EF SLOPE: 53 mm/s (70 - 150) EPSS: 0.7 cm MV E Yassine: 1.27 m/s MV DecT: 247 ms MV A Yassine: 1.09 m/s MV E/A Ratio: 1.17 RAP: 5.00 mmHg RVSP: 46.30 mmHg FINDINGS -------- Sinus rhythm. This was a technically good study. Left ventricular wall thickness is normal. Overall left ventricular systolic function is normal with, an EF between 55 - 60 %. The right ventricle is normal in size. LA is moderately dilated 34-39 ml/m2 The right atrium is normal in size. Area of interest in RA mobile echodense lesion in RT atrium differential includes [employer] network eustachian valve indwelling catheter mass or vegetation Aortic valve is trileaflet and is mildly thickened. The mitral valve leaflets are mildly thickened. Mild mitral annular calcification present. Mild mitral regurgitation is present. Mild tricuspid regurgitation present. There is mild to moderate pulmonary hypertension. The right ventricular systolic pressure, as measured by Doppler, is 46.30mmHg. Trace/mild (physiologic) pulmonic regurgitation. The aortic root, ascending aorta and aortic arch are normal. Normal inferior vena cava with normal inspiratory collapse consistent with estimated right atrial pressure of 5 mmHg. There is a small, generalized pericardial effusion present. CONCLUSIONS -------- 1. Sinus rhythm. 2. Aortic valve is trileaflet and is mildly thickened. 3. The mitral valve leaflets are mildly thickened. 4. Mild mitral annular calcification present. 5. Mild mitral regurgitation is present. 6. Mild tricuspid regurgitation present. 7. There is mild to moderate pulmonary hypertension. 8. The right ventricular systolic pressure, as measured by Doppler, is 46.30mmHg. 9. Trace/mild (physiologic) pulmonic regurgitation. 10. The aortic root, ascending aorta and aortic arch are normal. 11. Normal inferior vena cava with normal inspiratory collapse consistent with estimated right atrial pressure of 5 mmHg. 12. This was a technically good study. 13. There is a small, generalized pericardial effusion present. 14. Left ventricular wall thickness is normal. 15. Overall left ventricular systolic function is normal with, an EF between 55 - 60 %. 16. The right ventricle is normal in size. 17. LA is moderately dilated 34-39 ml/m2 18. The right atrium is normal in size. 19. Area of interest in RA 20. mobile echodense lesion in RT atrium differential includes chi[employer] network eustachian valve indwelling catheter mass or vegetation ACCOUNT COORDINATOR: Tootie Tran RDCS
[2016-11-17] MEDS: CALCIUM ACETATE 667 MG CAP PO SCH ×3 (09:12→17:49)
[2016-11-17] MEDS: amLODIPine 5 MG TAB PO SCH ×2 (09:12→20:33)
[2016-11-17] MEDS: PANTOPRAZOLE 40 MG/10 ML VIAL IVP SCH (09:13)
[2016-11-17] MEDS: LABETALOL 200 MG TAB PO SCH ×2 (09:13→20:33)
[2016-11-17] MEDS: FOLIC ACID-VIT B COMPLEX-VIT C 1 CAP PO SCH (09:13)
[2016-11-17] MEDS: PIPERACILLIN-TAZOBACTAM 3.375 GM in DEXTROSE/WATER 1 50ML.BAG IVPB SCH ×2 (09:15→22:01)
[2016-11-17 11:46] LABS: % Iron Saturation 35.6 % (20-50)
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
[2016-11-17 12:14] LABS: Glucose,Whole Blood 205 mg/dL (75-99)
[2016-11-17] MEDS ORDERED: ONDANSETRON 4 MG/2 ML VIAL IVP PRN (14:25)
--- NOTE | 2016-11-17 16:48 | P.PN ---
Subjective Principal diagnosis: sacral abscess Patient says his pain is about the same today. Some bloody drainage. No fevers. Cultures unchanged. Objective - Vital Signs Vital signs: Vital Signs Temp 98.5 F 11/17/16 07:00 Pulse 66 11/17/16 07:00 Resp 14 11/17/16 07:00 BP 129/68 11/17/16 07:00 Pulse Ox 98 11/17/16 07:00 Intake & Output 11/16/16 11/17/16 11/17/16 18:59 06:59 18:59 Intake Total 475 Output Total 150 Balance 475 -150 Intake: Intake, IV Titration 175 Amount Piperacillin-Tazobactam 3 50 .375 gm In Dextrose/Water 1 50ml.bag @ 12.5 mls/hr IVPB Q12HR [facility] Rx#: [id number] Vancomycin 1,000 mg In 125 Sodium Chloride 0.9% 250 ml @ 125 mls/hr IVPB ONCE ONE Rx#:[id number] Oral 300 Output: Urine 150 Other: Voiding Method Urinal Urinal # Voids 2 1 # Bowel Movements 2 - Exam Wound was some old bloody discharge. Erythema decreased tenderness about the same - Labs CBC & Chem 7: 11/17/16 06:47 11/17/16 06:47 Labs: Abnormal Lab Results - Last 24 Hours (Table) 11/16/16 11/16/16 11/17/16 Range/Units 16:35 20:39 06:47 RBC 2.88 L (4.30-5.90) m/uL Hgb 8.3 L (13.0-17.5) gm/dL Hct 26.9 L (39.0-53.0) % MCHC 30.7 L (31.0-37.0) g/dL Plt Count 112 L (150-450) k/uL BUN (9-20) mg/dL Creatinine (0.66-1.25) mg/dL Glucose (74-99) mg/dL POC Glucose (mg/dL) 111 H 194 H (75-99) mg/dL Calcium (8.4-10.2) mg/dL TIBC (261-462) ug/dL AST (17-59) U/L ALT (21-72) U/L Total Protein (6.3-8.2) g/dL Albumin (3.5-5.0) g/dL 11/17/16 11/17/16 11/17/16 Range/Units 06:47 06:47 07:43 RBC (4.30-5.90) m/uL Hgb (13.0-17.5) gm/dL Hct (39.0-53.0) % MCHC (31.0-37.0) g/dL Plt Count (150-450) k/uL BUN 26 H (9-20) mg/dL Creatinine 4.05 H (0.66-1.25) mg/dL Glucose 107 H (74-99) mg/dL POC Glucose (mg/dL) 106 H (75-99) mg/dL Calcium 7.4 L (8.4-10.2) mg/dL TIBC 180 L (261-462) ug/dL AST 9 L (17-59) U/L ALT 20 L (21-72) U/L Total Protein 5.3 L (6.3-8.2) g/dL Albumin 2.5 L (3.5-5.0) g/dL 11/17/16 Range/Units 12:09 RBC (4.30-5.90) m/uL Hgb (13.0-17.5) gm/dL Hct (39.0-53.0) % MCHC (31.0-37.0) g/dL Plt Count (150-450) k/uL BUN (9-20) mg/dL Creatinine (0.66-1.25) mg/dL Glucose (74-99) mg/dL POC Glucose (mg/dL) 205 H (75-99) mg/dL Calcium (8.4-10.2) mg/dL TIBC (261-462) ug/dL AST (17-59) U/L ALT (21-72) U/L Total Protein (6.3-8.2) g/dL Albumin (3.5-5.0) g/dL Microbiology - Last 24 Hours (Table) 11/15/16 09:40 Gram Stain - Final Buttock Wound Culture - Final Methicillin resist S. aureus 11/15/16 09:40 Anaerobic Culture - Preliminary Buttock 11/14/16 02:00 Anaerobic Culture - Preliminary Buttock Robina albicans 11/14/16 01:00 Gram Stain - Final Buttock Wound Culture - Final Methicillin resist S. aureus Klebsiella oxytoca Citrobacter braakii Assessment and Plan (1) Abscess of sacrum Narrative/Plan: Continue antibiotics. Continue local wound care. Status: Acute
[2016-11-17 17:00] LABS: Glucose,Whole Blood 142 mg/dL (75-99)
[2016-11-17] MEDS ORDERED: HYDROmorphone 1 MG/ML 1 ML SYRINGE IVP STA (17:06)
[2016-11-17] MEDS: INSULIN LISPRO (humaLOG) 300 UNIT/3 ML VIAL SQ SCH ×2 (17:07→22:00)
--- NOTE | 2016-11-17 17:43 | P.PN ---
Subjective Principal diagnosis: Infected sacral ulcer Patient is complaining of severe pain in the sacral area, he underwent debridement of his sacral ulcers today He denies any other complaints at this time He received hemodialysis yesterday Objective - Vital Signs Vital signs: Vital Signs Temp 98.5 F 11/17/16 07:00 Pulse 66 11/17/16 07:00 Resp 14 11/17/16 07:00 BP 129/68 11/17/16 07:00 Pulse Ox 98 11/17/16 07:00 Intake & Output 11/16/16 11/17/16 11/17/16 18:59 06:59 18:59 Intake Total 475 Output Total 150 Balance 475 -150 Intake: Intake, IV Titration 175 Amount Piperacillin-Tazobactam 3 50 .375 gm In Dextrose/Water 1 50ml.bag @ 12.5 mls/hr IVPB Q12HR [facility] Rx#: [id number] Vancomycin 1,000 mg In 125 Sodium Chloride 0.9% 250 ml @ 125 mls/hr IVPB ONCE ONE Rx#:[id number] Oral 300 Output: Urine 150 Other: Voiding Method Urinal Urinal # Voids 2 1 # Bowel Movements 2 - Exam In general patient is alert and oriented 3 in no apparent distress HEENT head normocephalic and nontraumatic Neck is supple no JVD no goiter no lymphadenopathy Chest is clear to auscultation no wheezing Cardiac exam reveals regular heart sounds no gallops no murmurs Abdomen is soft nontender no organomegaly Extremity exam reveals no edema no cyanosis or clubbing - Labs CBC & Chem 7: 11/17/16 06:47 11/17/16 06:47 Labs: Abnormal Lab Results - Last 24 Hours (Table) 11/16/16 11/17/16 11/17/16 Range/Units 20:39 06:47 06:47 RBC 2.88 L (4.30-5.90) m/uL Hgb 8.3 L (13.0-17.5) gm/dL Hct 26.9 L (39.0-53.0) % MCHC 30.7 L (31.0-37.0) g/dL Plt Count 112 L (150-450) k/uL BUN 26 H (9-20) mg/dL Creatinine 4.05 H (0.66-1.25) mg/dL Glucose 107 H (74-99) mg/dL POC Glucose (mg/dL) 194 H (75-99) mg/dL Calcium 7.4 L (8.4-10.2) mg/dL TIBC (261-462) ug/dL AST 9 L (17-59) U/L ALT 20 L (21-72) U/L Total Protein 5.3 L (6.3-8.2) g/dL Albumin 2.5 L (3.5-5.0) g/dL 11/17/16 11/17/16 11/17/16 Range/Units 06:47 07:43 12:09 RBC (4.30-5.90) m/uL Hgb (13.0-17.5) gm/dL Hct (39.0-53.0) % MCHC (31.0-37.0) g/dL Plt Count (150-450) k/uL BUN (9-20) mg/dL Creatinine (0.66-1.25) mg/dL Glucose (74-99) mg/dL POC Glucose (mg/dL) 106 H 205 H (75-99) mg/dL Calcium (8.4-10.2) mg/dL TIBC 180 L (261-462) ug/dL AST (17-59) U/L ALT (21-72) U/L Total Protein (6.3-8.2) g/dL Albumin (3.5-5.0) g/dL 11/17/16 Range/Units 16:51 RBC (4.30-5.90) m/uL Hgb (13.0-17.5) gm/dL Hct (39.0-53.0) % MCHC (31.0-37.0) g/dL Plt Count (150-450) k/uL BUN (9-20) mg/dL Creatinine (0.66-1.25) mg/dL Glucose (74-99) mg/dL POC Glucose (mg/dL) 142 H (75-99) mg/dL Calcium (8.4-10.2) mg/dL TIBC (261-462) ug/dL AST (17-59) U/L ALT (21-72) U/L Total Protein (6.3-8.2) g/dL Albumin (3.5-5.0) g/dL Microbiology - Last 24 Hours (Table) 11/15/16 09:40 Gram Stain - Final Buttock Wound Culture - Final Methicillin resist S. aureus 11/15/16 09:40 Anaerobic Culture - Preliminary Buttock 11/14/16 02:00 Anaerobic Culture - Preliminary Buttock Robina albicans 11/14/16 01:00 Gram Stain - Final Buttock Wound Culture - Final Methicillin resist S. aureus Klebsiella oxytoca Citrobacter braakii Assessment and Plan Plan: #1 end-stage renal disease on hemodialysis, patient missed several hemodialysis sessions #2 large sacral ulcer with abscess, patient underwent debridement today #3 severe hyperkalemia on presentation #4 anemia of chronic disease and chronic kidney disease #5 generalized debility #6 underlying history of seizure disorder #7 previous history of pancreatic cancer #8 mild protein calorie malnutrition patient complaining of severe pain requesting increase in pain medication At this time continue was current IV antibiotic, patient pain is not well controlled increase Dilaudid to 1.5 mg every 3 hours when necessary Will follow closely
[2016-11-17 20:46] LABS: Glucose,Whole Blood 156 mg/dL (75-99)
--- NOTE | 2016-11-17 22:16 | P.PN ---
Subjective Principal diagnosis: Sacral wound 46-year-old male who has a history of end-stage renal disease on hemodialysis who regretfully does miss sessions of hemodialysis. Presents the emergency room with complaints of significant pain and drainage to his sacrum. Patient states he suffered a fall before with an uncharacterized timeframe. He has developed increasing amounts of pain. Been out of his pain pills. Has not been going to hemodialysis. And has had a significant increase of drainage from the sacrum. This become much more difficult to sit and consequently because he became so ill he presented to the emergency center for further intervention. Upon presentation he has evidence of uremia. His potassium was elevated. He received semiurgent hemodialysis. This patient is been seen by surgery and surgical drainage of the pressure ulceration of the sacral area has occured. He has had the incision and drainage of the sacral ulceration. It has been packed. He is definitely more comfortable today. Much more cooperative and pleasant Objective - Vital Signs Vital signs: Vital Signs Temp 98.5 F 11/17/16 07:00 Pulse 77 11/17/16 16:00 Resp 14 11/17/16 16:00 BP 129/68 11/17/16 07:00 Pulse Ox 98 11/17/16 07:00 Intake & Output 11/17/16 11/17/16 11/18/16 06:59 18:59 06:59 Intake Total 475 200 Output Total 150 Balance 475 -150 200 Intake: Intake, IV Titration 175 Amount Piperacillin-Tazobactam 3 50 .375 gm In Dextrose/Water 1 50ml.bag @ 12.5 mls/hr IVPB Q12HR [facility] Rx#: [id number] Vancomycin 1,000 mg In 125 Sodium Chloride 0.9% 250 ml @ 125 mls/hr IVPB ONCE ONE Rx#:[id number] Oral 300 200 Output: Urine 150 Other: Voiding Method Urinal Urinal # Voids 1 # Bowel Movements 2 - Exam 46-year-old malewho appears chronically ill. Has lost severe amount of weight since his last evaluation. Appears cachectic, hypertension on dialysis HEENT: Anicteric conjunctiva are pink and moist nasal mucosa grossly intact without significant lesions, there is no thrush.mucosa is dry without lesions dentition i Neck: The neck is supple without significant lymphadenopathy or thyromegaly. Lungs: Good bilateral air entry without significant crackles or wheezing. There is no significant bronchial sounds. There is no egophony or dullness. Heart: Regular rate and rhythm with an audible S1-S2, no S3 no S4. There is no significant murmur click or rub, PMI was nondisplaced. Abdomen: Positive bowel sounds soft and nontender without palpable masses or organomegaly. There was no guarding or rebound. Extremities: upper extremities without acute changes. Lower extremity with muscular wasting The sacral area is evaluated. Dressing is in place from the incision and drainage. little drainage Neuro: Awake alert oriented to person place and time. Feels better and more cooperative today. - Labs CBC & Chem 7: 11/17/16 06:47 11/17/16 06:47 Labs: Abnormal Lab Results - Last 24 Hours (Table) 11/17/16 11/17/16 11/17/16 Range/Units 06:47 06:47 06:47 RBC 2.88 L (4.30-5.90) m/uL Hgb 8.3 L (13.0-17.5) gm/dL Hct 26.9 L (39.0-53.0) % MCHC 30.7 L (31.0-37.0) g/dL Plt Count 112 L (150-450) k/uL BUN 26 H (9-20) mg/dL Creatinine 4.05 H (0.66-1.25) mg/dL Glucose 107 H (74-99) mg/dL POC Glucose (mg/dL) (75-99) mg/dL Calcium 7.4 L (8.4-10.2) mg/dL TIBC 180 L (261-462) ug/dL AST 9 L (17-59) U/L ALT 20 L (21-72) U/L Total Protein 5.3 L (6.3-8.2) g/dL Albumin 2.5 L (3.5-5.0) g/dL 11/17/16 11/17/16 11/17/16 Range/Units 07:43 12:09 16:51 RBC (4.30-5.90) m/uL Hgb (13.0-17.5) gm/dL Hct (39.0-53.0) % MCHC (31.0-37.0) g/dL Plt Count (150-450) k/uL BUN (9-20) mg/dL Creatinine (0.66-1.25) mg/dL Glucose (74-99) mg/dL POC Glucose (mg/dL) 106 H 205 H 142 H (75-99) mg/dL Calcium (8.4-10.2) mg/dL TIBC (261-462) ug/dL AST (17-59) U/L ALT (21-72) U/L Total Protein (6.3-8.2) g/dL Albumin (3.5-5.0) g/dL 11/17/16 Range/Units 20:42 RBC (4.30-5.90) m/uL Hgb (13.0-17.5) gm/dL Hct (39.0-53.0) % MCHC (31.0-37.0) g/dL Plt Count (150-450) k/uL BUN (9-20) mg/dL Creatinine (0.66-1.25) mg/dL Glucose (74-99) mg/dL POC Glucose (mg/dL) 156 H (75-99) mg/dL Calcium (8.4-10.2) mg/dL TIBC (261-462) ug/dL AST (17-59) U/L ALT (21-72) U/L Total Protein (6.3-8.2) g/dL Albumin (3.5-5.0) g/dL Microbiology - Last 24 Hours (Table) 11/15/16 09:40 Gram Stain - Final Buttock Wound Culture - Final Methicillin resist S. aureus 11/15/16 09:40 Anaerobic Culture - Preliminary Buttock 11/14/16 02:00 Anaerobic Culture - Preliminary Buttock Robina albicans Laboratory Results WBC 7.1 k/uL (3.8-10.6) 11/17/16 06:47 RBC 2.88 m/uL (4.30-5.90) L 11/17/16 06:47 Hgb 8.3 gm/dL (13.0-17.5) L 11/17/16 06:47 Hct 26.9 % (39.0-53.0) L 11/17/16 06:47 MCV 93.6 fL (80.0-100.0) 11/17/16 06:47 MCH 28.7 pg (25.0-35.0) 11/17/16 06:47 MCHC 30.7 g/dL (31.0-37.0) L 11/17/16 06:47 RDW 14.8 % (11.5-15.5) 11/17/16 06:47 Plt Count 112 k/uL (150-450) L 11/17/16 06:47 Neutrophils % 73 % 11/17/16 06:47 Lymphocytes % 16 % 11/17/16 06:47 Monocytes % 4 % 11/17/16 06:47 Eosinophils % 5 % 11/17/16 06:47 Basophils % 0 % 11/17/16 06:47 Neutrophils # 5.2 k/uL (1.3-7.7) 11/17/16 06:47 Lymphocytes # 1.2 k/uL (1.0-4.8) 11/17/16 06:47 Monocytes # 0.3 k/uL (0-1.0) 11/17/16 06:47 Eosinophils # 0.4 k/uL (0-0.7) 11/17/16 06:47 Basophils # 0.0 k/uL (0-0.2) 11/17/16 06:47 Hypochromasia Moderate 11/17/16 06:47 PT 10.9 sec (9.0-12.0) 11/13/16 22:30 INR 1.1 (<1.1) 11/13/16 22:30 APTT 32.6 sec (22.0-30.0) H 11/13/16 22:30 Sodium 143 mmol/L (137-145) 11/17/16 06:47 Potassium 4.6 mmol/L (3.5-5.1) 11/17/16 06:47 Chloride 105 mmol/L (98-107) 11/17/16 06:47 Carbon Dioxide 28 mmol/L (22-30) 11/17/16 06:47 Anion Gap 10 mmol/L 11/17/16 06:47 BUN 26 mg/dL (9-20) H 11/17/16 06:47 Creatinine 4.05 mg/dL (0.66-1.25) H 11/17/16 06:47 Est GFR (MDRD) Af Amer 20 (>60 ml/min/1.73 sqM) 11/17/16 06:47 Est GFR (MDRD) Non-Af 16 (>60 ml/min/1.73 sqM) 11/17/16 06:47 Glucose 107 mg/dL (74-99) H 11/17/16 06:47 POC Glucose (mg/dL) 156 mg/dL (75-99) H 11/17/16 20:42 POC Glu [employer] [place] Apodaca 11/17/16 20:[address] Glu mg/dL 108 mg/dL 11/15/16 16:42 Hemoglobin A1c 5.4 % (4.2-6.1) 11/15/16 16:42 Plasma Lactic Acid Liam 0.7 mmol/L (0.7-2.0) 11/13/16 22:30 Calcium 7.4 mg/dL (8.4-10.2) L 11/17/16 06:47 Phosphorus 7.0 mg/dL (2.5-4.5) H 11/16/16 07:00 Magnesium 2.2 mg/dL (1.6-2.3) 11/16/16 07:00 Iron 64 ug/dL (49-181) 11/17/16 06:47 TIBC 180 ug/dL (261-462) L 11/17/16 06:47 % Saturation 35.6 % (20-50) 11/17/16 06:47 Ferritin 381 ng/mL (18-464) 11/17/16 06:47 Total Bilirubin 0.4 mg/dL (0.2-1.3) 11/17/16 06:47 AST 9 U/L (17-59) L 11/17/16 06:47 ALT 20 U/L (21-72) L 11/17/16 06:47 Alkaline Phosphatase 55 U/L (38-126) 11/17/16 06:47 Total Creatine Kinase 142 U/L (55-170) 11/13/16 22:30 CK-MB (CK-2) 11.5 ng/mL (0.0-2.4) H* 11/13/16 22:30 CK-MB (CK-2) Rel Index 8.1 11/13/16 22:30 Troponin I <0.012 ng/mL (0.000-0.034) 11/13/16 22:30 Total Protein 5.3 g/dL (6.3-8.2) L 11/17/16 06:47 Albumin 2.5 g/dL (3.5-5.0) L 11/17/16 06:47 Triglycerides 242 mg/dL (<150) H 11/14/16 04:15 Cholesterol 149 mg/dL (<200) 11/14/16 04:15 LDL Cholesterol, Calc 70 mg/dL (0-99) 11/14/16 04:15 HDL Cholesterol 31 mg/dL (40-60) L 11/14/16 04:15 Random Vancomycin 20.4 ug/mL 11/16/16 07:00 Hep Bs Antigen Negative 11/15/16 16:42 Hep Bs Antibody Negative (Negative) 11/15/16 16:42 Hep B Core Total Ab Non-Reactive (Non-Reactive) 11/15/16 16:42 Microbiology 11/15/16 09:40 Buttock Gram Stain - Final 11/15/16 09:40 Buttock Wound Culture - Final Methicillin resist S. aureus 11/15/16 09:40 Buttock Anaerobic Culture - Preliminary 11/14/16 02:00 Buttock Anaerobic Culture - Preliminary Robina albicans 11/13/16 22:30 Blood Blood Culture - Preliminary No Growth after 72 hours 11/14/16 01:00 Buttock Gram Stain - Final 11/14/16 01:00 Buttock Wound Culture - Final Methicillin resist S. aureus Klebsiella oxytoca Citrobacter braakii Assessment and Plan (1) Abscess of sacrum Narrative/Plan: 46-year-old male who has end-stage renal disease on hemodialysis easily difficulties with compliance. Presents with significant hyperkalemia is receiving hemodialysis this time. Goal is to improve his volume status and potassium soda may have surgery tomorrow. He is a surgical incision and drainage from the abscess to his sacrum which he is finding very painful. Pain control is slightly better at this point in time. He however is uncooperative and miserable. Local wound care is with a absorptive dressing and a tape free set up pants to observe the drainage. He has especially mattress Surgery is following leukocytosis is being monitored antibiotic therapy with Zosyn and Vancomycin is being utilized. 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 He has been free of this as far as we are able to know for a time period. 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 Current culture wity MRSA, Klesiella, Citrobacter For these pathogens the piperacillin tazobactam and vancomycin should be adequate. antibiotics adjusted as indicated. Incision and drainage performed.leukocytosis improved. Will ask for an air mattress. Vanco and Unasyn will be used at discharge wether ECF or home Status: Acute (2) End stage renal disease Status: Acute (3) Cachexia Status: Acute (4) Acute hyperkalemia Status: Acute
[2016-11-18] MEDS: HYDROmorphone 2 MG/ML 1 ML SYRINGE IVP PRN ×8 (00:39→23:14)
[2016-11-18 01:27] VITALS: RESP 16
[2016-11-18 06:56] LABS: Glucose,Whole Blood 119 mg/dL (75-99)
[2016-11-18] MEDS: INSULIN LISPRO (humaLOG) 300 UNIT/3 ML VIAL SQ SCH ×4 (07:08→21:52)
[2016-11-18] MEDS: FOLIC ACID-VIT B COMPLEX-VIT C 1 CAP PO SCH (07:55)
[2016-11-18] MEDS: CALCIUM ACETATE 667 MG CAP PO SCH ×3 (07:55→17:40)
[2016-11-18] MEDS: PANTOPRAZOLE 40 MG/10 ML VIAL IVP SCH (07:55)
[2016-11-18] MEDS: PIPERACILLIN-TAZOBACTAM 3.375 GM in DEXTROSE/WATER 1 50ML.BAG IVPB SCH ×2 (08:00→16:55)
[2016-11-18] MEDS: ONDANSETRON 4 MG/2 ML VIAL IVP PRN (11:04)
[2016-11-18] MEDS: amLODIPine 5 MG TAB PO SCH ×2 (11:23→20:10)
[2016-11-18] MEDS: LABETALOL 200 MG TAB PO SCH ×2 (11:23→20:09)
[2016-11-18 11:35] LABS: Glucose,Whole Blood 121 mg/dL (75-99)
--- NOTE | 2016-11-18 12:11 | P.PN ---
Subjective Principal diagnosis: sacral abscess Patient's his pain is better. Minimal drainage. He is afebrile. Objective - Vital Signs Vital signs: Vital Signs Temp 98.8 F 11/18/16 06:06 Pulse 70 11/18/16 06:06 Resp 16 11/18/16 06:06 BP 136/72 11/18/16 06:06 Pulse Ox 93 L 11/18/16 06:06 Intake & Output 11/17/16 11/18/16 11/18/16 18:59 06:59 18:59 Intake Total 1150 Output Total 150 100 Balance -150 1050 Intake: IV 950 Piperacillin-Tazobactam 3 50 .375 gm In Dextrose/Water 1 50ml.bag @ 12.5 mls/hr IVPB Q12HR [facility] Rx#: [id number] Sodium Chloride 0.9% 1, 900 000 ml @ 100 mls/hr IV . Q10H [facility] Rx#:[id number] Oral 200 Output: Urine 150 100 Other: Voiding Method Urinal Urinal - Exam Sacral wound with decreased bloody drainage, mild tenderness, erythema improved - Labs CBC & Chem 7: 11/17/16 06:47 11/17/16 06:47 Labs: Abnormal Lab Results - Last 24 Hours (Table) 11/17/16 11/17/16 11/17/16 Range/Units 06:47 12:09 16:51 POC Glucose (mg/dL) 205 H 142 H (75-99) mg/dL TIBC 180 L (261-462) ug/dL 11/17/16 11/18/16 11/18/16 Range/Units 20:42 06:46 11:15 POC Glucose (mg/dL) 156 H 119 H 121 H (75-99) mg/dL TIBC (261-462) ug/dL Microbiology - Last 24 Hours (Table) 11/14/16 02:00 Anaerobic Culture - Final Buttock Robina albicans 11/15/16 09:40 Gram Stain - Final Buttock Wound Culture - Final Methicillin resist S. aureus 11/15/16 09:40 Anaerobic Culture - Preliminary Buttock Assessment and Plan (1) Abscess of sacrum Narrative/Plan: Continue antibiotics. Continue local wound care. Stable for discharge from my standpoint. Status: Acute
[2016-11-18 15:18] LABS: Basophils % (A) 0 %; CH 29.5; CHCM 31.5; Eosinophils # (A) 0.4 k/uL (0-0.7); Eosinophils % (A) 6 %; HCT 27.1 % (39.0-53.0); HDW 3.06; HGB 8.4 gm/dL (13.0-17.5); Hypochromasia Slight; Luc # (Auto) 0.05; Luc % (Auto) 1; Lymphocytes % (A) 15 %; MCH 29.2 pg (25.0-35.0); MCHC 31.1 g/dL (31.0-37.0); MCV 94.1 fL (80.0-100.0); Mean Platelet Volume 9.5; Monocytes # (A) 0.1 k/uL (0-1.0); Monocytes % (A) 2 %; Neutrophils # (A) 5.1 k/uL (1.3-7.7); Neutrophils % (A) 76 %; RBC 2.89 m/uL (4.30-5.90); RDW 14.9 % (11.5-15.5); WBC 6.7 k/uL (3.8-10.6); WBC (Perox) 7.15
[2016-11-18 15:34] LABS: Calcium 7.5 mg/dL (8.4-10.2); Total Bilirubin 0.5 mg/dL (0.2-1.3); Total Protein 5.7 g/dL (6.3-8.2)
[2016-11-18 16:19] LABS: Potassium 4.5 mmol/L (3.5-5.1)
[2016-11-18 16:57] LABS: Glucose,Whole Blood 107 mg/dL (75-99)
[2016-11-18] MEDS ORDERED: HEPARIN SODIUM,PORCINE 5,000 UNIT/ML 1 ML VIAL ONE (18:00)
--- NOTE | 2016-11-18 18:07 | P.PN ---
Subjective Principal diagnosis: Infected sacral ulcer Patient is complaining of severe pain in the sacral area, he underwent debridement of his sacral ulcers today He denies any other complaints at this time He received hemodialysis yesterday Objective - Vital Signs Vital signs: Vital Signs Temp 97.9 F 11/18/16 14:04 Pulse 66 11/18/16 14:04 Resp 16 11/18/16 14:04 BP 155/66 11/18/16 14:04 Pulse Ox 94 L 11/18/16 14:04 Intake & Output 11/17/16 11/18/16 11/18/16 18:59 06:59 18:59 Intake Total 1150 50 Output Total 150 100 200 Balance -150 1050 -150 Intake: IV 950 50 Piperacillin-Tazobactam 3 50 50 .375 gm In Dextrose/Water 1 50ml.bag @ 12.5 mls/hr IVPB Q12HR [facility] Rx#: [id number] Sodium Chloride 0.9% 1, 900 000 ml @ 100 mls/hr IV . Q10H [facility] Rx#:[id number] Oral 200 Output: Urine 150 100 200 Other: Voiding Method Urinal Urinal - Exam In general patient is alert and oriented 3 in no apparent distress HEENT head normocephalic and nontraumatic Neck is supple no JVD no goiter no lymphadenopathy Chest is clear to auscultation no wheezing Cardiac exam reveals regular heart sounds no gallops no murmurs Abdomen is soft nontender no organomegaly Extremity exam reveals no edema no cyanosis or clubbing - Labs CBC & Chem 7: 11/18/16 15:10 11/18/16 15:10 Labs: Abnormal Lab Results - Last 24 Hours (Table) 11/17/16 11/18/16 11/18/16 Range/Units 20:42 06:46 11:15 RBC (4.30-5.90) m/uL Hgb (13.0-17.5) gm/dL Hct (39.0-53.0) % Plt Count (150-450) k/uL BUN (9-20) mg/dL Creatinine (0.66-1.25) mg/dL Glucose (74-99) mg/dL POC Glucose (mg/dL) 156 H 119 H 121 H (75-99) mg/dL Calcium (8.4-10.2) mg/dL AST (17-59) U/L ALT (21-72) U/L Total Protein (6.3-8.2) g/dL Albumin (3.5-5.0) g/dL 11/18/16 11/18/16 11/18/16 Range/Units 15:10 15:10 16:55 RBC 2.89 L (4.30-5.90) m/uL Hgb 8.4 L (13.0-17.5) gm/dL Hct 27.1 L (39.0-53.0) % Plt Count 90 L (150-450) k/uL BUN 26 H (9-20) mg/dL Creatinine 4.27 H (0.66-1.25) mg/dL Glucose 139 H (74-99) mg/dL POC Glucose (mg/dL) 107 H (75-99) mg/dL Calcium 7.5 L (8.4-10.2) mg/dL AST 11 L (17-59) U/L ALT 20 L (21-72) U/L Total Protein 5.7 L (6.3-8.2) g/dL Albumin 2.6 L (3.5-5.0) g/dL Microbiology - Last 24 Hours (Table) 11/14/16 02:00 Anaerobic Culture - Final Buttock Robina albicans 11/15/16 09:40 Gram Stain - Final Buttock Wound Culture - Final Methicillin resist S. aureus 11/15/16 09:40 Anaerobic Culture - Preliminary Buttock Assessment and Plan Plan: #1 end-stage renal disease on hemodialysis, patient missed several hemodialysis sessions #2 large sacral ulcer with abscess, patient underwent debridement during this admission he is complaining of severe pain dose of Dilantin was increased to 2 mg IV every 3 hours yesterday pain is better controlled today #3 severe hyperkalemia on presentation #4 anemia of chronic disease and chronic kidney disease #5 generalized debility #6 underlying history of seizure disorder #7 previous history of pancreatic cancer #8 mild protein calorie malnutrition patient complaining of severe pain requesting increase in pain medication At this time continue was current IV antibiotic, patient pain is not well controlled increase Dilaudid to 1.5 mg every 3 hours when necessary Will follow closely
--- NOTE | 2016-11-18 20:06 | P.PN ---
Subjective Principal diagnosis: Sacral wound 46-year-old male who has a history of end-stage renal disease on hemodialysis who regretfully does miss sessions of hemodialysis. Presents the emergency room with complaints of significant pain and drainage to his sacrum. Patient states he suffered a fall before with an uncharacterized timeframe. He has developed increasing amounts of pain. Been out of his pain pills. Has not been going to hemodialysis. And has had a significant increase of drainage from the sacrum. This become much more difficult to sit and consequently because he became so ill he presented to the emergency center for further intervention. Upon presentation he has evidence of uremia. His potassium was elevated. He received semiurgent hemodialysis. This patient is been seen by surgery and surgical drainage of the pressure ulceration of the sacral area has occured. He has had the incision and drainage of the sacral ulceration. It has been packed. He is definitely more comfortable today. Much more cooperative and pleasant Objective - Vital Signs Vital signs: Vital Signs Temp 97.9 F 11/18/16 14:04 Pulse 66 11/18/16 14:04 Resp 16 11/18/16 14:04 BP 155/66 11/18/16 14:04 Pulse Ox 94 L 11/18/16 14:04 Intake & Output 11/18/16 11/18/16 11/19/16 06:59 18:59 06:59 Intake Total 1150 50 Output Total 100 200 Balance 1050 -150 Intake: IV 950 50 Piperacillin-Tazobactam 3 50 50 .375 gm In Dextrose/Water 1 50ml.bag @ 12.5 mls/hr IVPB Q12HR [facility] Rx#: [id number] Sodium Chloride 0.9% 1, 900 000 ml @ 100 mls/hr IV . Q10H [facility] Rx#:[id number] Oral 200 Output: Urine 100 200 Other: Voiding Method Urinal - Exam 46-year-old malewho appears chronically ill. Has lost severe amount of weight since his last evaluation. Appears cachectic, hypertension on dialysis HEENT: Anicteric conjunctiva are pink and moist nasal mucosa grossly intact without significant lesions, there is no thrush.mucosa is dry without lesions dentition i Neck: The neck is supple without significant lymphadenopathy or thyromegaly. Lungs: Good bilateral air entry without significant crackles or wheezing. There is no significant bronchial sounds. There is no egophony or dullness. Heart: Regular rate and rhythm with an audible S1-S2, no S3 no S4. There is no significant murmur click or rub, PMI was nondisplaced. Abdomen: Positive bowel sounds soft and nontender without palpable masses or organomegaly. There was no guarding or rebound. Extremities: upper extremities without acute changes. Lower extremity with muscular wasting The sacral area is evaluated. Dressing is in place from the incision and drainage. little drainage Neuro: Awake alert oriented to person place and time. Feels better and more cooperative today. - Labs CBC & Chem 7: 11/18/16 15:10 11/18/16 15:10 Labs: Abnormal Lab Results - Last 24 Hours (Table) 11/17/16 11/18/16 11/18/16 Range/Units 20:42 06:46 11:15 RBC (4.30-5.90) m/uL Hgb (13.0-17.5) gm/dL Hct (39.0-53.0) % Plt Count (150-450) k/uL BUN (9-20) mg/dL Creatinine (0.66-1.25) mg/dL Glucose (74-99) mg/dL POC Glucose (mg/dL) 156 H 119 H 121 H (75-99) mg/dL Calcium (8.4-10.2) mg/dL AST (17-59) U/L ALT (21-72) U/L Total Protein (6.3-8.2) g/dL Albumin (3.5-5.0) g/dL 11/18/16 11/18/16 11/18/16 Range/Units 15:10 15:10 16:55 RBC 2.89 L (4.30-5.90) m/uL Hgb 8.4 L (13.0-17.5) gm/dL Hct 27.1 L (39.0-53.0) % Plt Count 90 L (150-450) k/uL BUN 26 H (9-20) mg/dL Creatinine 4.27 H (0.66-1.25) mg/dL Glucose 139 H (74-99) mg/dL POC Glucose (mg/dL) 107 H (75-99) mg/dL Calcium 7.5 L (8.4-10.2) mg/dL AST 11 L (17-59) U/L ALT 20 L (21-72) U/L Total Protein 5.7 L (6.3-8.2) g/dL Albumin 2.6 L (3.5-5.0) g/dL Microbiology - Last 24 Hours (Table) 11/14/16 02:00 Anaerobic Culture - Final Buttock Robina albicans Laboratory Results WBC 6.7 k/uL (3.8-10.6) 11/18/16 15:10 RBC 2.89 m/uL (4.30-5.90) L 11/18/16 15:10 Hgb 8.4 gm/dL (13.0-17.5) L 11/18/16 15:10 Hct 27.1 % (39.0-53.0) L 11/18/16 15:10 MCV 94.1 fL (80.0-100.0) 11/18/16 15:10 MCH 29.2 pg (25.0-35.0) 11/18/16 15:10 MCHC 31.1 g/dL (31.0-37.0) 11/18/16 15:10 RDW 14.9 % (11.5-15.5) 11/18/16 15:10 Plt Count 90 k/uL (150-450) L 11/18/16 15:10 Neutrophils % 76 % 11/18/16 15:10 Lymphocytes % 15 % 11/18/16 15:10 Monocytes % 2 % 11/18/16 15:10 Eosinophils % 6 % 11/18/16 15:10 Basophils % 0 % 11/18/16 15:10 Neutrophils # 5.1 k/uL (1.3-7.7) 11/18/16 15:10 Lymphocytes # 1.0 k/uL (1.0-4.8) 11/18/16 15:10 Monocytes # 0.1 k/uL (0-1.0) 11/18/16 15:10 Eosinophils # 0.4 k/uL (0-0.7) 11/18/16 15:10 Basophils # 0.0 k/uL (0-0.2) 11/18/16 15:10 Hypochromasia Slight 11/18/16 15:10 PT 10.9 sec (9.0-12.0) 11/13/16 22:30 INR 1.1 (<1.1) 11/13/16 22:30 APTT 32.6 sec (22.0-30.0) H 11/13/16 22:30 Sodium 140 mmol/L (137-145) 11/18/16 15:10 Potassium 4.5 mmol/L (3.5-5.1) 11/18/16 15:10 Chloride 103 mmol/L (98-107) 11/18/16 15:10 Carbon Dioxide 28 mmol/L (22-30) 11/18/16 15:10 Anion Gap 9 mmol/L 11/18/16 15:10 BUN 26 mg/dL (9-20) H 11/18/16 15:10 Creatinine 4.27 mg/dL (0.66-1.25) H 11/18/16 15:10 Est GFR (MDRD) Af Amer 18 (>60 ml/min/1.73 sqM) 11/18/16 15:10 Est GFR (MDRD) Non-Af 15 (>60 ml/min/1.73 sqM) 11/18/16 15:10 Glucose 139 mg/dL (74-99) H 11/18/16 15:10 POC Glucose (mg/dL) 107 mg/dL (75-99) H 11/18/16 16:55 POC Glu Perianesthesia Rn ID 11/18/16 16:[address] Glu mg/dL 108 mg/dL 11/15/16 16:42 Hemoglobin A1c 5.4 % (4.2-6.1) 11/15/16 16:42 Plasma Lactic Acid Liam 0.7 mmol/L (0.7-2.0) 11/13/16 22:30 Calcium 7.5 mg/dL (8.4-10.2) L 11/18/16 15:10 Phosphorus 7.0 mg/dL (2.5-4.5) H 11/16/16 07:00 Magnesium 2.2 mg/dL (1.6-2.3) 11/16/16 07:00 Iron 64 ug/dL (49-181) 11/17/16 06:47 TIBC 180 ug/dL (261-462) L 11/17/16 06:47 % Saturation 35.6 % (20-50) 11/17/16 06:47 Ferritin 381 ng/mL (18-464) 11/17/16 06:47 Total Bilirubin 0.5 mg/dL (0.2-1.3) 11/18/16 15:10 AST 11 U/L (17-59) L 11/18/16 15:10 ALT 20 U/L (21-72) L 11/18/16 15:10 Alkaline Phosphatase 56 U/L (38-126) 11/18/16 15:10 Total Creatine Kinase 142 U/L (55-170) 11/13/16 22:30 CK-MB (CK-2) 11.5 ng/mL (0.0-2.4) H* 11/13/16 22:30 CK-MB (CK-2) Rel Index 8.1 11/13/16 22:30 Troponin I <0.012 ng/mL (0.000-0.034) 11/13/16 22:30 Total Protein 5.7 g/dL (6.3-8.2) L 11/18/16 15:10 Albumin 2.6 g/dL (3.5-5.0) L 11/18/16 15:10 Triglycerides 242 mg/dL (<150) H 11/14/16 04:15 Cholesterol 149 mg/dL (<200) 11/14/16 04:15 LDL Cholesterol, Calc 70 mg/dL (0-99) 11/14/16 04:15 HDL Cholesterol 31 mg/dL (40-60) L 11/14/16 04:15 Random Vancomycin 20.4 ug/mL 11/16/16 07:00 Hep Bs Antigen Negative 11/15/16 16:42 Hep Bs Antibody Negative (Negative) 11/15/16 16:42 Hep B Core Total Ab Non-Reactive (Non-Reactive) 11/15/16 16:42 Microbiology 11/14/16 02:00 Buttock Anaerobic Culture - Final Robina albicans 11/13/16 22:30 Blood Blood Culture - Preliminary No Growth after 96 hours 11/15/16 09:40 Buttock Gram Stain - Final 11/15/16 09:40 Buttock Wound Culture - Final Methicillin resist S. aureus 11/15/16 09:40 Buttock Anaerobic Culture - Preliminary 11/14/16 01:00 Buttock Gram Stain - Final 11/14/16 01:00 Buttock Wound Culture - Final Methicillin resist S. aureus Klebsiella oxytoca Citrobacter braakii Assessment and Plan (1) Abscess of sacrum Narrative/Plan: 46-year-old male who has end-stage renal disease on hemodialysis easily difficulties with compliance. Presents with significant hyperkalemia is receiving hemodialysis this time. Goal is to improve his volume status and potassium soda may have surgery tomorrow. He is a surgical incision and drainage from the abscess to his sacrum which he is finding very painful. Pain control is slightly better at this point in time. He however is uncooperative and miserable. Local wound care is with a absorptive dressing and a tape free set up pants to observe the drainage. He has especially mattress Surgery is following leukocytosis is being monitored antibiotic therapy with Zosyn and Vancomycin is being utilized. 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 He has been free of this as far as we are able to know for a time period. 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 Current culture wity MRSA, Klesiella, Citrobacter For these pathogens the piperacillin tazobactam and vancomycin should be adequate. antibiotics adjusted as indicated. Incision and drainage performed.leukocytosis improved. Now on an air mattress. Vanco and Unasyn will be used at discharge to either ECF or home Status: Acute (2) End stage renal disease Status: Acute (3) Cachexia Status: Acute (4) Acute hyperkalemia Status: Acute
[2016-11-18 20:11] LABS: Glucose,Whole Blood 172 mg/dL (75-99)
[2016-11-18] MEDS: ALPRAZolam 0.5 MG TAB PO PRN (21:52)
[2016-11-19] MEDS: PIPERACILLIN-TAZOBACTAM 3.375 GM in DEXTROSE/WATER 1 50ML.BAG IVPB SCH ×2 (00:21→07:53)
[2016-11-19] MEDS: HYDROmorphone 2 MG/ML 1 ML SYRINGE IVP PRN ×5 (02:19→15:05)
[2016-11-19 07:49] LABS: Glucose,Whole Blood 267 mg/dL (75-99)
[2016-11-19 07:53] VITALS: BP 127/67; PULSE 73; TEMP 98.6
[2016-11-19] MEDS: PANTOPRAZOLE 40 MG/10 ML VIAL IVP SCH (07:54)
[2016-11-19] MEDS: INSULIN LISPRO (humaLOG) 300 UNIT/3 ML VIAL SQ SCH ×2 (07:55→12:33)
[2016-11-19] MEDS: CALCIUM ACETATE 667 MG CAP PO SCH (07:55)
[2016-11-19] MEDS: amLODIPine 5 MG TAB PO SCH (07:56)
[2016-11-19] MEDS: LABETALOL 200 MG TAB PO SCH (07:56)
[2016-11-19] MEDS: FOLIC ACID-VIT B COMPLEX-VIT C 1 CAP PO SCH (07:56)
[2016-11-19 08:57] LABS: Basophils % (A) 0 %; CH 29.7; CHCM 32.6; Eosinophils # (A) 0.5 k/uL (0-0.7); Eosinophils % (A) 5 %; HCT 26.3 % (39.0-53.0); HDW 3.17; HGB 8.5 gm/dL (13.0-17.5); Luc # (Auto) 0.12; Luc % (Auto) 1; Lymphocytes # (A) 1.3 k/uL (1.0-4.8); Lymphocytes % (A) 13 %; MCH 29.5 pg (25.0-35.0); MCHC 32.1 g/dL (31.0-37.0); MCV 91.7 fL (80.0-100.0); Mean Platelet Volume 8.6; Monocytes # (A) 0.4 k/uL (0-1.0); Monocytes % (A) 4 %; Neutrophils # (A) 7.6 k/uL (1.3-7.7); Neutrophils % (A) 77 %; RBC 2.87 m/uL (4.30-5.90); RDW 14.9 % (11.5-15.5)
[2016-11-19 09:14] LABS: Calcium 7.2 mg/dL (8.4-10.2); Potassium 4.6 mmol/L (3.5-5.1); Total Bilirubin 0.3 mg/dL (0.2-1.3); Total Protein 5.6 g/dL (6.3-8.2)
[2016-11-19] MEDS: ONDANSETRON 4 MG/2 ML VIAL IVP PRN (09:27)
--- NOTE | 2016-11-19 11:29 | P.PN ---
Subjective Patient is seen in follow-up for end-stage renal disease. He is maintained on hemodialysis on a Wednesday schedule via Permacath. Currently being treated with IV antibiotics for sacral abscess. Denies any chest pain or shortness of breath. Underwent hemodialysis yesterday without any issues. Vital signs are stable. General: The patient appeared well nourished and normally developed. HEENT: Head exam is unremarkable. Neck is without jugular venous distension. LUNGS: Lungs are clear to auscultation and percussion. Breath sounds decreased. HEART: Rate and Rhythm are regular. First and second heart sounds normal. No murmurs, rubs or gallops. ABDOMEN: Abdominal exam reveals normal bowel sounds. Non-tender and non- distended. No evidence of peritonitis. EXTREMITITES: No clubbing, cyanosis, or edema. Objective - Vital Signs Vital signs: Vital Signs Temp 98.6 F 11/19/16 07:00 Pulse 73 11/19/16 07:00 Resp 16 11/19/16 07:00 BP 127/67 11/19/16 07:00 Pulse Ox 96 11/19/16 07:00 Intake & Output 11/18/16 11/19/16 11/19/16 18:59 06:59 18:59 Intake Total 50 690 118 Output Total 200 Balance -150 690 118 Weight 72.575 kg Intake: IV 50 Piperacillin-Tazobactam 3 50 .375 gm In Dextrose/Water 1 50ml.bag @ 12.5 mls/hr IVPB Q12HR [facility] Rx#: [id number] Oral 690 118 Output: Urine 200 Other: Voiding Method Urinal # Voids 1 # Bowel Movements 1 - Labs CBC & Chem 7: 11/19/16 08:08 11/19/16 08:08 Labs: Abnormal Lab Results - Last 24 Hours (Table) 11/18/16 11/18/16 11/18/16 Range/Units 11:15 15:10 15:10 RBC 2.89 L (4.30-5.90) m/uL Hgb 8.4 L (13.0-17.5) gm/dL Hct 27.1 L (39.0-53.0) % Plt Count 90 L (150-450) k/uL BUN 26 H (9-20) mg/dL Creatinine 4.27 H (0.66-1.25) mg/dL Glucose 139 H (74-99) mg/dL POC Glucose (mg/dL) 121 H (75-99) mg/dL Calcium 7.5 L (8.4-10.2) mg/dL AST 11 L (17-59) U/L ALT 20 L (21-72) U/L Total Protein 5.7 L (6.3-8.2) g/dL Albumin 2.6 L (3.5-5.0) g/dL 11/18/16 11/18/16 11/19/16 Range/Units 16:55 20:10 07:43 RBC (4.30-5.90) m/uL Hgb (13.0-17.5) gm/dL Hct (39.0-53.0) % Plt Count (150-450) k/uL BUN (9-20) mg/dL Creatinine (0.66-1.25) mg/dL Glucose (74-99) mg/dL POC Glucose (mg/dL) 107 H 172 H 267 H (75-99) mg/dL Calcium (8.4-10.2) mg/dL AST (17-59) U/L ALT (21-72) U/L Total Protein (6.3-8.2) g/dL Albumin (3.5-5.0) g/dL 11/19/16 11/19/16 Range/Units 08:08 08:08 RBC 2.87 L (4.30-5.90) m/uL Hgb 8.5 L (13.0-17.5) gm/dL Hct 26.3 L (39.0-53.0) % Plt Count 120 L (150-450) k/uL BUN 26 H (9-20) mg/dL Creatinine 3.40 H (0.66-1.25) mg/dL Glucose 182 H (74-99) mg/dL POC Glucose (mg/dL) (75-99) mg/dL Calcium 7.2 L (8.4-10.2) mg/dL AST 12 L (17-59) U/L ALT (21-72) U/L Total Protein 5.6 L (6.3-8.2) g/dL Albumin 2.7 L (3.5-5.0) g/dL Microbiology - Last 24 Hours (Table) 11/15/16 09:40 Anaerobic Culture - Final Buttock 11/14/16 02:00 Anaerobic Culture - Final Buttock Robina albicans Assessment and Plan Plan: Assessment: #1. End-stage renal disease maintained on hemodialysis on a Wednesday schedule via Permacath. #2. Sacral abscess maintained on IV antibiotics. #3. Chronic kidney disease mineral bone disease. #4. Anemia of chronic kidney disease. #5. Hypertension with chronic kidney disease. Controlled. Plan: Hemodialysis tomorrow with goal 2 liters ultrafiltration. Maintain PhosLo with meals. Antibiotics per infectious disease recommendations. Maintain Aranesp.
[2016-11-19 11:59] LABS: Glucose,Whole Blood 260 mg/dL (75-99)
--- NOTE | 2016-11-19 13:24 | P.DS ---
Providers Date of admission: 11/13/16 22:34 Expected date of discharge: 11/19/16 Attending physician: Hans Stiles Consults: 11/13/16 22:38 Consult Physician Routine Consulting Provider: Marco Swain Consult Reason/Comments: abscess Do you want consulting provider notified?: Yes 11/13/16 23:24 Consult Physician Urgent Consulting Provider: Carlos Salinas Consult Reason/Comments: chf,copd Do you want consulting provider notified?: Yes 11/13/16 23:30 Consult Physician Urgent Consulting Provider: Joceline Kay Consult Reason/Comments: chf Do you want consulting provider notified?: Yes Primary care physician: Airam Burkett Hospital Course: Discharge diagnoses #1 end-stage renal disease on hemodialysis, patient missed several hemodialysis sessions #2 large sacral ulcer with abscess, patient underwent debridement during this admission #3 severe hyperkalemia on presentation secondary to his not noncompliance with dialysis #4 anemia of chronic disease and chronic kidney disease #5 generalized debility #6 underlying history of seizure disorder #7 previous history of pancreatic cancer #8 mild protein calorie malnutrition #9 hypertensive urgency on admission Hospital course This is a 46-year-old male who presented to the emergency room with complaints of sacral pain. He was found to have a large sacral ulcer with abscess. There is significant drainage. He was admitted to the ICU. He had evidence of hypertensive emergency on admission. He was seen by infectious disease and placed on antibiotics. Currently on vancomycin and Zosyn. At discharge the recommending vancomycin and Unasyn. Patient had debridement during this hospitalization. His sacral abscess and has been showing improvement. And he' ll follow-up with Dr. Swain in the wound care center. Patient's blood pressures are showing improvement as well. Patient was also evaluated by cardiology and pulmonary during his admission to the ICU. Patient was able to be transferred to the surgical floor. He is also been maintained on his routine dialysis schedule. He has been cleared by all consulting physicians for discharge. He will be discharged to [facility] to receive his IV antibiotics via his MediPort. He'll continue the vancomycin Wednesday dispensing 6 bags and Unasyn 3 g IV daily for 14 days. Patient is medical stable for discharge. Please refer to chart for any further details. Patient Condition at Discharge: Stable Plan - Discharge Summary New Discharge Prescriptions: Ampicillin-Sulbactam [Unasyn] 3 gm IVPB Q24H #14 vial Vancomycin 1,000 mg IVPB MOWEFR #6 bag Discharge Medication List Insulin Detemir [Levemir Flextouch] 5 units SQ HS #0 02/04/16 [Rx] Folic Acid-Vit B Complex-Vit C [Nephrocaps] 1 cap PO DAILY 05/12/16 [History] Labetalol [Trandate] 100 mg PO BID 05/12/16 [History] Cyclobenzaprine [Flexeril] 10 mg PO TID PRN 08/01/16 [History] INSULIN LISPRO (humaLOG) [humaLOG (formulary)] 10 units SQ W/SUPPER 08/01/16 [ History] Oxymorphone HCl [Oxymorphone HCl ER] 60 mg PO DAILY 08/01/16 [History] levETIRAcetam [Keppra] 750 mg PO Q12HR 08/01/16 [History] oxyCODONE HCL 10 mg PO BID 08/01/16 [History] Albuterol Nebulized [Ventolin Nebulized] 2.5 mg INHALATION RT-QID PRN #0 nebu [Rx] Pantoprazole [Protonix] 40 mg PO AC-BRKFST #30 tablet. 08/02/16 [Rx] Calcium Acetate [PhosLo] 667 mg PO TID-W/MEALS cap 10/21/16 [Rx] Calcium Carbonate [Tums] 1,000 mg PO BID chew 10/21/16 [Rx] Darbepoetin Sher [Aranesp] 40 mcg SQ Q7D syringe 10/21/16 [Rx] Labetalol [Trandate] 100 mg PO BID tab 10/21/16 [Rx] Oxymorphone ER [Opana ER] 30 mg PO Q12HR #60 tab 10/21/16 [Rx] oxyCODONE-APAP 10-325MG [Percocet 10-325 mg] 1 tab PO BID #60 tab 10/21/16 [Rx] Ampicillin-Sulbactam [Unasyn] 3 gm IVPB Q24H #14 vial 11/19/16 [Rx] Vancomycin 1,000 mg IVPB MOWEFR #6 bag 11/19/16 [Rx] Follow up Appointment(s)/Referral(s): [facility] [NON-STAFF] - 1 Week (Wound Clinic will contact [facility] with appointment day and time. ) Airam Burkett MD [Primary Care Provider] - 1 Week (Patient to schedule after discharged from [facility].) Ambulatory/Diagnostic Orders: Basic Metabolic Panel [LAB.AMB] Location: Determined By Patient Complete Blood Count w/diff [LAB.AMB] Location: Determined By Patient Vancomycin,Trough [LAB.AMB] Location: Determined By Patient Activity/Diet/Wound Care/Special Instructions: Diet: cardiac, diabetic, renal Activity: as tolerated Hemodialysis on Wednesday via permacath Ok to d/c to [facility]
--- NOTE | 2016-11-19 13:29 | P.PN ---
Subjective Principal diagnosis: sacral abscess Patient says his pain is improved. He is afebrile. He is being discharged today. Objective - Vital Signs Vital signs: Vital Signs Temp 98.6 F 11/19/16 07:00 Pulse 73 11/19/16 07:00 Resp 16 11/19/16 07:00 BP 127/67 11/19/16 07:00 Pulse Ox 96 11/19/16 07:00 Intake & Output 11/18/16 11/19/16 11/19/16 18:59 06:59 18:59 Intake Total 50 690 118 Output Total 200 Balance -150 690 118 Weight 72.575 kg Intake: IV 50 Piperacillin-Tazobactam 3 50 .375 gm In Dextrose/Water 1 50ml.bag @ 12.5 mls/hr IVPB Q12HR [facility] Rx#: [id number] Oral 690 118 Output: Urine 200 Other: Voiding Method Urinal # Voids 1 # Bowel Movements 1 - Exam Wound clean, small adherent clot, no active bleeding, minimal tenderness - Labs CBC & Chem 7: 11/19/16 08:08 11/19/16 08:08 Labs: Abnormal Lab Results - Last 24 Hours (Table) 11/18/16 11/18/16 11/18/16 Range/Units 15:10 15:10 16:55 RBC 2.89 L (4.30-5.90) m/uL Hgb 8.4 L (13.0-17.5) gm/dL Hct 27.1 L (39.0-53.0) % Plt Count 90 L (150-450) k/uL BUN 26 H (9-20) mg/dL Creatinine 4.27 H (0.66-1.25) mg/dL Glucose 139 H (74-99) mg/dL POC Glucose (mg/dL) 107 H (75-99) mg/dL Calcium 7.5 L (8.4-10.2) mg/dL AST 11 L (17-59) U/L ALT 20 L (21-72) U/L Total Protein 5.7 L (6.3-8.2) g/dL Albumin 2.6 L (3.5-5.0) g/dL 11/18/16 11/19/16 11/19/16 Range/Units 20:10 07:43 08:08 RBC 2.87 L (4.30-5.90) m/uL Hgb 8.5 L (13.0-17.5) gm/dL Hct 26.3 L (39.0-53.0) % Plt Count 120 L (150-450) k/uL BUN (9-20) mg/dL Creatinine (0.66-1.25) mg/dL Glucose (74-99) mg/dL POC Glucose (mg/dL) 172 H 267 H (75-99) mg/dL Calcium (8.4-10.2) mg/dL AST (17-59) U/L ALT (21-72) U/L Total Protein (6.3-8.2) g/dL Albumin (3.5-5.0) g/dL 11/19/16 11/19/16 Range/Units 08:08 11:55 RBC (4.30-5.90) m/uL Hgb (13.0-17.5) gm/dL Hct (39.0-53.0) % Plt Count (150-450) k/uL BUN 26 H (9-20) mg/dL Creatinine 3.40 H (0.66-1.25) mg/dL Glucose 182 H (74-99) mg/dL POC Glucose (mg/dL) 260 H (75-99) mg/dL Calcium 7.2 L (8.4-10.2) mg/dL AST 12 L (17-59) U/L ALT (21-72) U/L Total Protein 5.6 L (6.3-8.2) g/dL Albumin 2.7 L (3.5-5.0) g/dL Microbiology - Last 24 Hours (Table) 11/15/16 09:40 Anaerobic Culture - Final Buttock 11/14/16 02:00 Anaerobic Culture - Final Buttock Robina albicans Assessment and Plan (1) Abscess of sacrum Narrative/Plan: Continue local wound care. The patient I discussed the options of wound care evaluation postoperatively. Appointment will be made for him to see the wound care center following discharge. Status: Acute
[2016-11-19] MEDS ORDERED: VANCOMYCIN 1,000 MG in SODIUM CHLORIDE 0.9% 250 ML IVPB ONE (18:00)
[2016-11-19] MEDS ORDERED: PIPERACILLIN-TAZOBACTAM 3.375 GM in DEXTROSE/WATER 1 50ML.BAG IVPB SCH (21:00)
[2016-11-20] MEDS ORDERED: PANTOPRAZOLE 40 MG TABLET PO SCH (07:30)
== END 2016-11-19 16:05 | DRG 570 ==
LOC: EC 21:10 → 6ICU 22:34 → 3SUR 11-14 23:12
PROVIDERS: ADMIT Internal Medicine; ATTEND Internal Medicine
PROC: 5A1D60Z (ICD-10-PCS; 2016-11-14)
PROC: 0JB70ZZ Excision of Back Subcutaneous Tissue and Fascia, Open Approach (ICD-10-PCS; principal; 2016-11-15 08:00)
DX: L05.01 Pilonidal cyst with abscess (principal); N18.6 End stage renal disease; R64 Cachexia; L89.159 Pressure ulcer of sacral region, unspecified stage; K31.84 Gastroparesis; E11.22 Type 2 diabetes mellitus with diabetic chronic kidney disease; E11.43 Type 2 diabetes mellitus with diabetic autonomic (poly)neuropathy; I12.0 Hypertensive chronic kidney disease with stage 5 chronic kidney disease or end stage renal disease; F11.20 Opioid dependence, uncomplicated; E44.1 Mild protein-calorie malnutrition; I16.1 Hypertensive emergency; E87.5 Hyperkalemia; D63.1 Anemia in chronic kidney disease; I16.0 Hypertensive urgency; E78.5 Hyperlipidemia, unspecified; T46.5X6A Underdosing of other antihypertensive drugs, initial encounter; F41.0 Panic disorder [episodic paroxysmal anxiety]; F12.90 Cannabis use, unspecified, uncomplicated; E87.70 Fluid overload, unspecified; M19.90 Unspecified osteoarthritis, unspecified site; R53.81 Other malaise; E83.39 Other disorders of phosphorus metabolism; K21.9 Gastro-esophageal reflux disease without esophagitis; R10.9 Unspecified abdominal pain; R53.1 Weakness; R29.6 Repeated falls; G40.909 Epilepsy, unspecified, not intractable, without status epilepticus; G89.29 Other chronic pain; G47.30 Sleep apnea, unspecified; D72.829 Elevated white blood cell count, unspecified; M89.9 Disorder of bone, unspecified; F41.9 Anxiety disorder, unspecified; Z86.14 Personal history of Methicillin resistant Staphylococcus aureus infection; Z80.1 Family history of malignant neoplasm of trachea, bronchus and lung; Z80.0 Family history of malignant neoplasm of digestive organs; Z79.899 Other long term (current) drug therapy; Z79.4 Long term (current) use of insulin; Z99.2 Dependence on renal dialysis; Z68.23 Body mass index [BMI] 23.0-23.9, adult; Z91.15 Patient's noncompliance with renal dialysis; Z91.81 History of falling; Z90.5 Acquired absence of kidney; Z91.19 Patient's noncompliance with other medical treatment and regimen; Z91.14 Patient's other noncompliance with medication regimen; Z85.07 Personal history of malignant neoplasm of pancreas; Z90.49 Acquired absence of other specified parts of digestive tract; Z87.828 Personal history of other (healed) physical injury and trauma; Z90.411 Acquired partial absence of pancreas; W10.9XXA Fall (on) (from) unspecified stairs and steps, initial encounter; Y93.9 Activity, unspecified; Y92.018 Other place in single-family (private) house as the place of occurrence of the external cause
CPT/HCPCS: 36415; 71020; 72220; 80048; 80053; 80061; 80202; 82550; 82553; 82728; 83036; 83540; 83550; 83605; 83735; 84100; 84484; 85025; 85027; 85610; 85730; 86704; 86706; 87040; 87070; 87075; 87077; 87186; 87205; 87340; 90935; 93005; 93306; 96365; 96366; 96375; 99285